=== PATIENT | male | born 1955 | race Caucasian/White ===

== ENCOUNTER 2020-07-02 16:59 | Inpatient (IN) ==
--- NOTE | 2020-07-02 20:31 | DR.SOBA ---
HPI Time Seen Time Seen by Provider: 07/02/20 18:30 Primary Care Physician Primary Care Physician: LILIBETH MONTEZ Complaints Chief Complaint:: PT TESTED POSITIVE COVID LAST THURSDAY , PT C/O LOW 02 SAT , AND < APPETITE , AND > CONGESTION PT IS NOT ON ANY ABX ..BR COVID-19 Coronavirus risk:travel/contact w/high risk person: No Has patient experienced Coronavirus symptoms: Yes Coronavirus symptoms experienced: Coughing and Shortness of Breath Source History Provided: Patient Mode of Arrival Mode of Arrival: Ambulatory Timing Onset of Chief Complaint: 06/27/20 PMH PMH Past Medical History: Yes Past Medical History: Diabetes, Dyslipidemia and Hypertension Past Surgical History: No Family History History of Family Medical Conditions: No Social History Does patient currently use any type of tobacco product: No Have you used tobacco products in the last 12 months: No Type of Tobacco Use: None Does any household member use tobacco: No Alcohol Use: None Do you use any recreational Drugs:: No Lives With: Family Lives Where: Home Travel Risk Coronavirus risk:travel/contact w/high risk person: No Has patient experienced Coronavirus symptoms: Yes Coronavirus symptoms experienced: Coughing and Shortness of Breath Infectious screening In the last 2 months have you had wt loss of >10#?: NO Have you had fever, night sweats or hemotysis?: No Have you traveled outside the country in the last 6 months?: No Isolation: Droplet ROS Review of Systems Constitutional: Chills, Diaphoresis, Malaise, Weakness, Fatigue and Loss of Appetite Eyes: No Symptoms Reported ENTM: No Symptoms Reported Respiratoy: Non-Productive Cough and Short of Breath Cardiovascular: No Symptoms Reported Gastrointestinal/Abdominal: No Symptoms Reported Genitourinary: No Symptoms Reported Neurological: No Symptoms Reported Musculoskeletal: Muscle Pain Integumentary: No Symptoms Reported Hematologic/Lymphatic: No Symptoms Reported Psychiatric: No Symptoms Reported All Other Systems: Reviewed and Negative PE Vital Signs Vitals: Temperature 97.2 F Pulse Rate 92 Respiratory Rate 20 Blood Pressure 170/79 O2 Sat by Pulse Oximetry 90 General Limitations: No Limitations General Appearance: Alert and In No Apparent Distress Head Head Exam: Normal Inspection, Atraumatic and Normocephalic Eyes Eye exam: Normal Appearance, PERRL and EOMI; negative Scleral Icterus, Conjunctival Injection and Nystagmus ENT ENT Exam: Normal Exam, Normal Oropharynx and Normal External Ear Exam Neck Neck Exam: Normal Inspection, Full ROM and Trachea Midline Chest Chest Inspection: Normal Inspection and Symmetric Chest Wall Rise; negative Tenderness Respiratory Respiratory Exam: Normal Lung Sounds Bilat; negative Accessory Muscle Use and Chest Wall Tenderness Respiratory Exam: Bilateral: Clear to Auscultation Cardiovascular Cardiovascular Exam: Regular Rate, Normal Rhythm and Normal Heart Sounds Abdominal Exam Abdominal Exam: Normal Inspection, Normal Bowel Sounds and Soft Extremities Extremities Exam: Normal Inspection and Full ROM; negative Tenderness Back Back Exam: Normal Inspection and Full ROM; negative Tenderness Neurologic Neurological Exam: Alert, Oriented X3 and Normal Gait Psychiatric Psychiatric Exam: Normal Affect ROR Labs Reviewed Result Diagrams: 07/02/20 20:38 07/02/20 20:38 Laboratory: WBC 3.5 X10^3/uL (3.6-10.0) L 07/02/20 20:38 RBC 3.93 X10^6/uL (4.7-6.0) L 07/02/20 20:38 Hgb 12.4 g/dL (13.5-18.0) L 07/02/20 20:38 Hct 36.7 % (42.0-54.0) L 07/02/20 20:38 MCV 93.4 fL (80.0-100.0) 07/02/20 20:38 MCH 31.7 pg (27.0-34.0) 07/02/20 20:38 MCHC 33.9 g/dL (33.0-35.0) 07/02/20 20:38 RDW 12.6 % (11.6-16.5) 07/02/20 20:38 Plt Count 220 X10^3/uL (150.0-450.0) 07/02/20 20:38 MPV 8.7 fL (7.4-11.0) 07/02/20 20:38 Neut % (Auto) 83.7 % (42.0-75.0) H 07/02/20 20:38 Lymph % (Auto) 7.7 % (21.0-51.0) L 07/02/20 20:38 [place] % (Auto) 8.3 % (0.0-13.0) 07/02/20 20:38 Eos % (Auto) 0.1 % (0.9-2.9) L 07/02/20 20:38 Baso % (Auto) 0.2 % (0.2-1.0) 07/02/20 20:38 Neut # (Auto) 2.9 x10^3/uL (2.2-4.8) 07/02/20 20:38 Lymph # (Auto) 0.3 X10^3/uL (1.3-2.9) L 07/02/20 20:38 [place] # (Auto) 0.3 x10^3/uL (0.3-0.8) 07/02/20 20:38 Eos # (Auto) 0.0 x10^3/uL (0.0-0.2) 07/02/20 20:38 Baso # (Auto) 0.0 X10^3/uL (0.0-0.1) 07/02/20 20:38 Absolute Nucleated RBC 0.0 /100WBC 07/02/20 20:38 PT 14.3 SECONDS (11.8-14.3) 07/02/20 20:38 INR Target Range - 07/02/20 20:38 INR 1.14 (0.8-1.3) 07/02/20 20:38 APTT 42.0 SECONDS (22.9-36.5) H 07/02/20 20:38 PTT Comment - 07/02/20 20:38 D-Dimer 1.50 ug/ml (0.0-0.57) H* 07/02/20 20:38 Sample Site Lr 07/02/20 20:49 ABG pH 7.510 (7.35-7.45) H 07/02/20 20:49 ABG pCO2 24.0 mmHg (35.0-45.0) L 07/02/20 20:49 ABG pO2 52.0 mmHg (80.0-100.0) L 07/02/20 20:49 ABG HCO3 19.2 mmol/L (22-26) L 07/02/20 20:49 ABG O2 Saturation 90.0 % (90-100) 07/02/20 20:49 ABG Base Excess -2.3 mmol/L (-2.0-2.0) L 07/02/20 20:49 Cipriano Test Pos 07/02/20 20:49 A-a Gradient 118.0 mmHg 07/02/20 20:49 FiO2 28.0 07/02/20 20:49 Blood Gas Comments Ez well ae 07/02/20 20:49 Sodium 141 mmol/L (136-145) 07/02/20 20:38 Corrected Sodium 141 mmol/L (136-145) 07/02/20 20:38 Potassium 3.9 mmol/L (3.5-5.1) 07/02/20 20:38 Chloride 104 mmol/L (98-107) 07/02/20 20:38 Carbon Dioxide 23.7 mmol/L (21-32) 07/02/20 20:38 BUN 19 mg/dL (7-18) H 07/02/20 20:38 Creatinine 1.11 mg/dL (0.70-1.30) 07/02/20 20:38 Est GFR (MDRD) Af Amer > 60 (>60) 07/02/20 20:38 Est GFR (MDRD) Non-Af > 60 (>60) 07/02/20 20:38 Glucose 119 mg/dL (65-99) H 07/02/20 20:38 Calcium 9.1 mg/dL (8.5-10.1) 07/02/20 20:38 Corrected Calcium 9.9 mg/dL (8.5-10.1) 07/02/20 20:38 Magnesium 1.7 mg/dL (1.7-2.9) 07/02/20 20:38 Ferritin 436 ng/mL (26-388) H 07/02/20 20:49 Total Bilirubin 0.50 mg/dL (0.2-1.0) 07/02/20 20:38 AST 48 Units/L (15-37) H 07/02/20 20:38 ALT 39 Units/L (12-78) 07/02/20 20:38 Alkaline Phosphatase 49 Units/L (46-116) 07/02/20 20:38 Creatine Kinase 47 Units/L (39-308) 07/02/20 20:38 CK-MB (CK-2) < 1.0 ng/mL (0-4.0) 07/02/20 20:38 CK/CKMB % Calc 2.1 % (<4) 07/02/20 20:38 Troponin I < 0.02 ng/mL (0-1.5) 07/02/20 20:38 C-Reactive Protein 183.50 mg/L (0-3.0) H 07/02/20 20:49 B-Natriuretic Peptide 162 pg/mL (0-79) H 07/02/20 20:38 Total Protein 7.6 g/dL (6.4-8.2) 07/02/20 20:38 Albumin 3.0 g/dL (3.4-5.0) L 07/02/20 20:38 Globulin 4.6 g/dL (2.5-4.5) H 07/02/20 20:38 Albumin/Globulin Ratio 0.7 Ratio (1.1-2.1) L 07/02/20 20:38 Opioid Opioid Risk Tool Age (Elijah box if 16-45): No History of Preadolescent Sexual Abuse: No Total: 0 Total Score Risk Category: Low Risk Copyright: Berhane DIAZ predicting aberrant behaviors Diagnosis Discharge Problem: Hypoxia, COVID-19 Community acquired pneumonia Qualifiers: Laterality: unspecified laterality Qualified Code(s): J18.9 - Pneumonia, unspecified organism
[2020-07-02 20:54] LABS: BASOPHILS % (AUTO) 0.2 % (0.2-1.0); EOSINOPHILS % (AUTO) 0.1 % (0.9-2.9); HEMATOCRIT 36.7 % (42.0-54.0); HEMOGLOBIN 12.4 g/dL (13.5-18.0); LYMPHOCYTES # (AUTO) 0.3 X10^3/uL (1.3-2.9); LYMPHOCYTES % (AUTO) 7.7 % (21.0-51.0); MEAN CORPUSCULAR HEMOGLOBIN 31.7 pg (27.0-34.0); MEAN CORPUSCULAR HGB CONC 33.9 g/dL (33.0-35.0); MEAN CORPUSCULAR VOLUME 93.4 fL (80.0-100.0); MEAN PLATELET VOLUME 8.7 fL (7.4-11.0); MONOCYTES # (AUTO) 0.3 x10^3/uL (0.3-0.8); MONOCYTES % (AUTO) 8.3 % (0.0-13.0); NEUTROPHILS # (AUTO) 2.9 x10^3/uL (2.2-4.8); NEUTROPHILS % (AUTO) 83.7 % (42.0-75.0); PLATELET COUNT 220 X10^3/uL (150.0-450.0); RED BLOOD COUNT 3.93 X10^6/uL (4.7-6.0); RED CELL DISTRIBUTION WIDTH 12.6 % (11.6-16.5); WHITE BLOOD COUNT 3.5 X10^3/uL (3.6-10.0)
[2020-07-02 20:54] LABS: ABG ALLEN TEST POS; ABG BASE EXCESS -2.3 mmol/L (-2.0-2.0); ABG HCO3 19.2 mmol/L (22-26)
[2020-07-02 21:09] LABS: BLOOD UREA NITROGEN 19 mg/dL (7-18); CALCIUM 9.1 mg/dL (8.5-10.1); CARBON DIOXIDE 23.7 mmol/L (21-32); CHLORIDE 104 mmol/L (98-107); COR NA(FOR HYPERGLY) 141 mmol/L (136-145); CREATININE 1.11 mg/dL (0.70-1.30); SODIUM 141 mmol/L (136-145); TROPONIN I < 0.02 ng/mL (0-1.5); eGFR NON BLACK RACES > 60 (>60)
[2020-07-02 21:13] LABS: ALANINE AMINOTRANSFERASE 39 Units/L (12-78); ALKALINE PHOSPHATASE 49 Units/L (46-116); ASPARTATE AMINO TRANSFERASE 48 Units/L (15-37); CKMB % 2.1 % (<4); COR CA(FOR HYPOALB) 9.9 mg/dL (8.5-10.1); CREATINE KINASE 47 Units/L (39-308); CREATINE KINASE MB < 1.0 ng/mL (0-4.0); MAGNESIUM 1.7 mg/dL (1.7-2.9); TOTAL PROTEIN 7.6 g/dL (6.4-8.2)
[2020-07-02] MEDS ORDERED: DECADRON INJ IVP STA (22:03)
[2020-07-02] MEDS ORDERED: ROCEPHIN 1 GRAM IV PREMIX 1 G/50 ML IV.SOLN. IV ONE (22:04)
[2020-07-02] MEDS ORDERED: ZITHROMAX INJ 500 MG VIAL 500 MG in NS 250 ML IV 250 ML IV SCH (22:04)
--- NOTE | 2020-07-02 22:28 | CT ---
HISTORYelevated d dimer, covid +STUDYCTA CHESTCOMPARISONNoneTECHNIQUEMultiple axial images of the chest were obtained from the thoracic inlet to the upper abdomen after the administration of IV contrast. 3D reconstructions utilizing axial MIPS imaging was performed and reviewed. Dose reduction techniques including Automated Exposure Control (AEC) and adjustment of mA and kV were utilized.FINDINGSPulmonary arteries: There is no central filling defects of the pulmonary arterial system to suggest acute pulmonary emboli.Mediastinum: Shotty mediastinal and hilar lymph nodes. Heart size is within normal limits. No paricardial effusion The thoracic aorta is normal in its contour without evidence for aneurysmal dilatation.Lungs: Patchy ground-glass opacity throughout the bilateral lung meza, without pleural effusion or pneumothorax. The central airway is grossly patent.Chest wall: No axillary adenopathy.Bones: No aggressive osseus lesion or acute fracture.Upper abdomen: The visualized portions of the upper abdomen are grossly unremarkable .IMPRESSIONNo evidence of acute pulmonary emboli.Patchy ground-glass opacities throughout the bilateral lung meza, most likely represent COVID-19 pneumonia given history.Electronically signed by: Tasha Negron (Jul 02, 2020 22:27:01)
[2020-07-02] MEDS ORDERED: DECADRON INJ ONE (22:56)
[2020-07-02] MEDS ORDERED: ROCEPHIN VIAL 1 GRAM ONE (22:57)
[2020-07-02] MEDS ORDERED: NS 50 ML IV + SPIKE MINIBAG* 50 ML IV ONE (22:57)
[2020-07-02] MEDS ORDERED: NS 1000 ML 1,000 ML ONE (23:02)
[2020-07-02] MEDS ORDERED: NS 250 ML IV 250 ML IV ONE (23:02)
[2020-07-02] MEDS ORDERED: ZITHROMAX INJ 500 MG VIAL IV ONE (23:02)
[2020-07-02] MEDS ORDERED: NS 1000 ML 1,000 ML IV SCH (23:45)
--- NOTE | 2020-07-03 07:37 | DR.SOBA ---
HPI Time Seen Time Seen by Provider: 07/02/20 18:30 Primary Care Physician Primary Care Physician: LILIBETH MONTEZ Complaints Chief Complaint:: PT TESTED POSITIVE COVID LAST THURSDAY , PT C/O LOW 02 SAT , AND < APPETITE , AND > CONGESTION PT IS NOT ON ANY ABX ..BR COVID-19 Coronavirus risk:travel/contact w/high risk person: No Has patient experienced Coronavirus symptoms: Yes Coronavirus symptoms experienced: Coughing and Shortness of Breath Source History Provided: Patient Mode of Arrival Mode of Arrival: Ambulatory Timing Onset of Chief Complaint: 06/27/20 PMH PMH Past Medical History: Yes Past Medical History: Diabetes, Dyslipidemia and Hypertension Past Surgical History: No Family History History of Family Medical Conditions: No Social History Does patient currently use any type of tobacco product: No Have you used tobacco products in the last 12 months: No Type of Tobacco Use: None Does any household member use tobacco: No Alcohol Use: None Do you use any recreational Drugs:: No Lives With: Family Lives Where: Home Travel Risk Coronavirus risk:travel/contact w/high risk person: No Has patient experienced Coronavirus symptoms: Yes Coronavirus symptoms experienced: Coughing and Shortness of Breath Infectious screening In the last 2 months have you had wt loss of >10#?: NO Have you had fever, night sweats or hemotysis?: No Have you traveled outside the country in the last 6 months?: No Isolation: Droplet PE Vital Signs Vitals: Temperature 100.1 F Pulse Rate [Left Brachial] 79 Pulse Rate 92 Respiratory Rate 24 Blood Pressure [Left Arm] 139/66 Blood Pressure 170/79 O2 Sat by Pulse Oximetry 90 ROR Labs Reviewed Result Diagrams: 07/02/20 20:38 07/02/20 20:38 Laboratory: WBC 3.5 X10^3/uL (3.6-10.0) L 07/02/20 20:38 RBC 3.93 X10^6/uL (4.7-6.0) L 07/02/20 20:38 Hgb 12.4 g/dL (13.5-18.0) L 07/02/20 20:38 Hct 36.7 % (42.0-54.0) L 07/02/20 20:38 MCV 93.4 fL (80.0-100.0) 07/02/20 20:38 MCH 31.7 pg (27.0-34.0) 07/02/20 20:38 MCHC 33.9 g/dL (33.0-35.0) 07/02/20 20:38 RDW 12.6 % (11.6-16.5) 07/02/20 20:38 Plt Count 220 X10^3/uL (150.0-450.0) 07/02/20 20:38 MPV 8.7 fL (7.4-11.0) 07/02/20 20:38 Neut % (Auto) 83.7 % (42.0-75.0) H 07/02/20 20:38 Lymph % (Auto) 7.7 % (21.0-51.0) L 07/02/20 20:38 [place] % (Auto) 8.3 % (0.0-13.0) 07/02/20 20:38 Eos % (Auto) 0.1 % (0.9-2.9) L 07/02/20 20:38 Baso % (Auto) 0.2 % (0.2-1.0) 07/02/20 20:38 Neut # (Auto) 2.9 x10^3/uL (2.2-4.8) 07/02/20 20:38 Lymph # (Auto) 0.3 X10^3/uL (1.3-2.9) L 07/02/20 20:38 [place] # (Auto) 0.3 x10^3/uL (0.3-0.8) 07/02/20 20:38 Eos # (Auto) 0.0 x10^3/uL (0.0-0.2) 07/02/20 20:38 Baso # (Auto) 0.0 X10^3/uL (0.0-0.1) 07/02/20 20:38 Absolute Nucleated RBC 0.0 /100WBC 07/02/20 20:38 PT 14.3 SECONDS (11.8-14.3) 07/02/20 20:38 INR Target Range - 07/02/20 20:38 INR 1.14 (0.8-1.3) 07/02/20 20:38 APTT 42.0 SECONDS (22.9-36.5) H 07/02/20 20:38 PTT Comment - 07/02/20 20:38 D-Dimer 1.50 ug/ml (0.0-0.57) H* 07/02/20 20:38 Sample Site Lr 07/02/20 20:49 ABG pH 7.510 (7.35-7.45) H 07/02/20 20:49 ABG pCO2 24.0 mmHg (35.0-45.0) L 07/02/20 20:49 ABG pO2 52.0 mmHg (80.0-100.0) L 07/02/20 20:49 ABG HCO3 19.2 mmol/L (22-26) L 07/02/20 20:49 ABG O2 Saturation 90.0 % (90-100) 07/02/20 20:49 ABG Base Excess -2.3 mmol/L (-2.0-2.0) L 07/02/20 20:49 Cipriano Test Pos 07/02/20 20:49 A-a Gradient 118.0 mmHg 07/02/20 20:49 FiO2 28.0 07/02/20 20:49 Blood Gas Comments Ez well ae 07/02/20 20:49 Sodium 141 mmol/L (136-145) 07/02/20 20:38 Corrected Sodium 141 mmol/L (136-145) 07/02/20 20:38 Potassium 3.9 mmol/L (3.5-5.1) 07/02/20 20:38 Chloride 104 mmol/L (98-107) 07/02/20 20:38 Carbon Dioxide 23.7 mmol/L (21-32) 07/02/20 20:38 BUN 19 mg/dL (7-18) H 07/02/20 20:38 Creatinine 1.11 mg/dL (0.70-1.30) 07/02/20 20:38 Est GFR (MDRD) Af Amer > 60 (>60) 07/02/20 20:38 Est GFR (MDRD) Non-Af > 60 (>60) 07/02/20 20:38 Glucose 119 mg/dL (65-99) H 07/02/20 20:38 Calcium 9.1 mg/dL (8.5-10.1) 07/02/20 20:38 Corrected Calcium 9.9 mg/dL (8.5-10.1) 07/02/20 20:38 Magnesium 1.7 mg/dL (1.7-2.9) 07/02/20 20:38 Ferritin 436 ng/mL (26-388) H 07/02/20 20:49 Total Bilirubin 0.50 mg/dL (0.2-1.0) 07/02/20 20:38 AST 48 Units/L (15-37) H 07/02/20 20:38 ALT 39 Units/L (12-78) 07/02/20 20:38 Alkaline Phosphatase 49 Units/L (46-116) 07/02/20 20:38 Creatine Kinase 47 Units/L (39-308) 07/02/20 20:38 CK-MB (CK-2) < 1.0 ng/mL (0-4.0) 07/02/20 20:38 CK/CKMB % Calc 2.1 % (<4) 07/02/20 20:38 Troponin I < 0.02 ng/mL (0-1.5) 07/02/20 20:38 C-Reactive Protein 183.50 mg/L (0-3.0) H 07/02/20 20:49 B-Natriuretic Peptide 162 pg/mL (0-79) H 07/02/20 20:38 Total Protein 7.6 g/dL (6.4-8.2) 07/02/20 20:38 Albumin 3.0 g/dL (3.4-5.0) L 07/02/20 20:38 Globulin 4.6 g/dL (2.5-4.5) H 07/02/20 20:38 Albumin/Globulin Ratio 0.7 Ratio (1.1-2.1) L 07/02/20 20:38 EKG Rate: 84 [place]: Normal Rhythm: NSR Block: None Hypertrophy: None ST: Normal Opioid Opioid Risk Tool Age (Elijah box if 16-45): No History of Preadolescent Sexual Abuse: No Total: 0 Total Score Risk Category: Low Risk Copyright: Berhane DIAZ predicting aberrant behaviors Diagnosis Discharge Problem: Hypoxia, COVID-19 Community acquired pneumonia Qualifiers: Laterality: unspecified laterality Qualified Code(s): J18.9 - Pneumonia, unspecified organism
[2020-07-03] MEDS ORDERED: TUSSIONEX PENNKINETIC SUSP PO PRN (09:37)
[2020-07-03] MEDS ORDERED: REMDESIVIR 200 MG in NS 250 ML IV 250 ML IV SCH (09:39)
[2020-07-03] MEDS ORDERED: PROTONIX TAB 40 MG PO ONE (10:11)
[2020-07-03] MEDS ORDERED: SOLU-Medrol 40 MG VIAL ONE ×2 (10:11→10:19)
[2020-07-03] MEDS ORDERED: TESSALON PERLES PO ONE (10:11)
[2020-07-03] MEDS ORDERED: PEPCID TAB 20 MG ONE (10:11)
[2020-07-03] MEDS ORDERED: ROBITUSSIN DM ONE (10:11)
[2020-07-03] MEDS ORDERED: LEVAQUIN PREMIX IV 500 MG 500 MG/100 ML BAG IV ONE (10:12)
[2020-07-03] MEDS: PEPCID TAB 20 MG PO SCH ×3 (10:15→20:33)
[2020-07-03] MEDS: SOLU-Medrol 40 MG VIAL IVP SCH ×4 (10:15→21:14)
[2020-07-03] MEDS: PROTONIX TAB 40 MG PO SCH ×2 (10:15→10:18)
[2020-07-03] MEDS: LEVAQUIN PREMIX IV 500 MG 500 MG/100 ML BAG IV SCH ×2 (10:15→10:17)
[2020-07-03] MEDS: TESSALON PERLES PO SCH ×4 (10:16→21:14)
[2020-07-03] MEDS: ROBITUSSIN DM PO SCH ×4 (10:16→21:13)
[2020-07-03] MEDS ORDERED: DUONEB 0.5 MG/3 MG (3 mL) NEB SCH (13:00)
[2020-07-03] MEDS: LOVENOX INJ 30 MG SYR SC SCH ×2 (13:32→21:13)
[2020-07-03] MEDS: NS 1/2 1000 ML IV 1,000 ML IV SCH (13:33)
[2020-07-03] MEDS ORDERED: NS 1/2 1000 ML IV 1,000 ML IV ONE (13:34)
[2020-07-03] MEDS: DUONEB 0.5 MG/3 MG (3 mL) NEB SCH ×2 (16:05→20:15)
[2020-07-03] MEDS ORDERED: PULMICORT NEB TX 0.5 MG NEB ONE (19:34)
[2020-07-03] MEDS ORDERED: SUBOXONE TAB SL ONE (20:03)
[2020-07-03] MEDS: PULMICORT NEB TX 0.5 MG NEB SCH (20:15)
[2020-07-03] MEDS: SUBOXONE TAB SL SCH (21:14)
--- NOTE | 2020-07-03 22:57 | DR.H&P ---
H&P - History & Physical for Day of: H&P Date: 07/03/20 - Chief Complaint Chief Complaint: COUGH, SOB, FEVER, WEAKNESS, DECREASED APPETITE, COVID POSITIVE - History of Present Illness History of Present Illness: IS A 65 YEAR OLD PATIENT OF OURS. HE PRESENTED TO THE ER WITH COMPLAINTS OF A NON-PRODUCTIVE COUGH, SHORTNESS OF BREATH, DECREASED APPETITE, CONGESTION, AND GENERALIZED WEAKNESS. SYMPTOMS STARTED ABOUT A WEEK AGO AND HAVE PROGRESSIVELY GOTTEN WORSE. HE TESTED POSITIVE FOR COVID 19 ON 04/27/20. HE HAS NOT TAKEN ANY MEDICATIONS. HE REPORTS THAT HIS OXYGEN SATURATIONS TODAY HAVE BEEN IN THE 80s. HIS PMH INCLUDES: HYPERLIPIDEMIA, HTN, DIABETES MELLITUS TYPE II, AND HERNIA REPAIR. AUSCULTATION OF LUNG [place] REVEALED SCATTERED WHEEZING THROUGHOUT. ON ARRIVAL TO THE ER, VITALS WERE 97.2-92-20-90%RA-170/79. LABS WERE OBTAINED. ABNORMAL LAB VALUES INCLUDE THE FOLLOWING: WBC 3.5, RBC 3.93, HGB 12.4, HCT 36.7, D-DIMER 1.50, BUN 19, GLUCOSE 119, FERRITIN 436, AST 48, BNP 162, CRP 183.50, BNP 162, ALBUMIN 3.0, GLOBULIN 4.6. AN ABG WAS OBTAINED AND REVEALED: PH 7.510, PC02 24.0, P02 52, HC03 19.2, 02 SAT 90, BASE EXCESS -2.3, FI02 28.0. BLOOD CULTURES WERE SET UP. A CHEST CTA WAS OBTAINED AND REVEALED: No evidence of acute pulmonary emboli. Patchy ground- glass opacities throughout the bilateral lung [place], most likely represent COVID-19 pneumonia given history. EKG REVEALED SINUS RHYTHM WITH HR 64. IN THE ER, HE WAS GIVEN DECADRON 8MG IV X 1, ROCEPHIN 1G IV DAILY, NORMAL SALINE AT 125 ML/HR, AND REMDESIVIR 200MG IV X 1. HE WAS PLACED ON A VENTI-MASK. OXYGEN SATURATIONS REMAINED 88-90%. HE WAS THEN PLACED ON A NON-REBREATHER. SATUS INCREASED TO 94%. HE WAS ADMITTED TO THE HOSPITAL FOR FURTHER EVALUATION AND TREATMENT OF PNEUMONIA DUE TO COVID-19 AND HYPOXIA. HE WAS STARTED ON 1/2NS AT 75 ML/HR, REMDESIVIR 100MG IV DAILY, LEVAQUIN 500MG IV DAILY, LOVENOX 30MG SC BID, DUONEBS TID, PULMICORT NEBS BID, ROBITUSSIN DM 10 ML PO QID, SOLU-MEDROL 80MG IV Q8H, PEPCID 20MG PO BID, PROTONIX 40MG PO DAILY, AND HIS HOME MEDICATIONS WERE RESUMED. WE WILL OBTAIN AN ECHO. OTHERWISE, WE PLAN TO FOLLOW UP WITH AM LABS, CHEST XRAY, ABG, AND CONTINUE TO MONITOR. TIME SPENT ON CLINICAL ASSESSMENT, REVIEWING LABS AND IMAGING, DECISION MAKING, AND DOCUMENTATION GREATER THAN 75 MINUTES. - Past Medical History Past Medical History: Hypertension, Dyslipidemia, Diabetes - Past Surgical History Additional Surgical History: HERNIA REPAIR - Social History Does patient currently use any type of tobacco product: No Have you used tobacco products in the last 12 months: No Type of Tobacco Use: None Does any household member use tobacco: No Alcohol Use: None Drug Use: None - Medications Home Medications: No Known Drug Allergies Allergy (Verified 07/02/20 17:24) CONTINUE taking the following medications benazepril 40 mg PO DAILY 07/03/20 [History] carvedilol 6.25 mg PO DAILY 07/03/20 [History] fenofibrate micronized 134 mg PO DAILY 07/03/20 [History] lisdexamfetamine [Vyvanse] 30 mg PO DAILY 07/03/20 [History] simvastatin 40 mg PO DAILY 07/03/20 [History] sitagliptin-metformin [Janumet XR] 1 tab PO DAILY 07/03/20 [History] New Prescriptions buprenorphine-naloxone [Suboxone] 1 film SUBLINGUAL TID 30 Days #90 ea MDD 3 07/03/20 [Rx] - Review of Systems Constitutional: Fever, Weakness Eyes: No Symptoms Reported ENT: No Symptoms Reported Respiratory: Cough, Shortness of Breath, SOB with Excertion, Wheezing Cardiovascular: No Symptoms Reported Gastrointestinal: No Symptoms Reported Genitourinary: No Symptoms Reported Musculoskeletal: No Symptoms Reported Skin: No Symptoms Reported Neurological: Weakness - Physical Exam Vital Signs: Temperature 99.3 F Pulse Rate [Left Brachial] 69 Pulse Rate 66 Respiratory Rate 26 Blood Pressure [Left Arm] 149/70 Blood Pressure 142/68 O2 Sat by Pulse Oximetry 92 Oriented: Normal Eyes: Normal Ear: Normal Nose: Normal Throat: Normal Respiratory: Wheezes Throughout Cardiovascular: Normal : Normal Auscultation: Bowel Sounds: Normal Palpation: Normal Tenderness: Normal Skin: Normal Musculoskeletal: Normal Psychiatric: Normal Mood Description: Calm Affect: Normal Speech Pattern: Clear - Assessment/Plan (1) Pneumonia due to COVID-19 virus Status: Acute Plan: ADMIT, 1/2NS AT 75 ML/HR, REMDESIVIR 100MG IV DAILY, LEVAQUIN 500MG IV DAILY, LOVENOX 30MG SC BID, DUONEBS TID, PULMICORT NEBS BID, ROBITUSSIN DM 10 ML PO QID, SOLU-MEDROL 80MG IV Q8H, PEPCID 20MG PO BID, PROTONIX 40MG PO DAILY, AND HIS HOME MEDICATIONS WERE RESUMED. (2) Hypoxia Status: Acute - Allergies Allergies/Adverse Reactions: Allergies Allergy/AdvReac Type Severity Reaction Status Date / Time No Known Drug Allergies Allergy Verified 07/02/20 17:24
[2020-07-04] MEDS: NS 1/2 1000 ML IV 1,000 ML IV SCH ×4 (03:11→20:46)
[2020-07-04] MEDS ORDERED: NS 1/2 1000 ML IV 1,000 ML IV ONE ×2 (03:22→20:37)
[2020-07-04 04:58] LABS: ABG ALLEN TEST POS; ABG BASE EXCESS 0.8 mmol/L (-2.0-2.0); ABG HCO3 24.2 mmol/L (22-26)
[2020-07-04] MEDS: DUONEB 0.5 MG/3 MG (3 mL) NEB SCH ×3 (05:01→21:20)
[2020-07-04] MEDS: SUBOXONE TAB SL SCH ×3 (05:34→22:30)
[2020-07-04] MEDS: TESSALON PERLES PO SCH ×3 (05:34→21:30)
[2020-07-04] MEDS: SOLU-Medrol 40 MG VIAL IVP SCH ×3 (05:34→21:30)
[2020-07-04 05:45] LABS: BASOPHILS % (AUTO) 0 % (0.2-1.0); HEMATOCRIT 34.2 % (42.0-54.0); HEMOGLOBIN 11.6 g/dL (13.5-18.0); LYMPHOCYTES # (AUTO) 0.5 X10^3/uL (1.3-2.9); LYMPHOCYTES % (AUTO) 9.5 % (21.0-51.0); MEAN CORPUSCULAR HEMOGLOBIN 31.6 pg (27.0-34.0); MEAN CORPUSCULAR VOLUME 92.9 fL (80.0-100.0); MEAN PLATELET VOLUME 8.8 fL (7.4-11.0); MONOCYTES # (AUTO) 0.4 x10^3/uL (0.3-0.8); MONOCYTES % (AUTO) 7.7 % (0.0-13.0); NEUTROPHILS % (AUTO) 82.8 % (42.0-75.0); PLATELET COUNT 204 X10^3/uL (150.0-450.0); RED BLOOD COUNT 3.68 X10^6/uL (4.7-6.0); RED CELL DISTRIBUTION WIDTH 12.7 % (11.6-16.5); WHITE BLOOD COUNT 4.8 X10^3/uL (3.6-10.0)
[2020-07-04 05:53] LABS: ALANINE AMINOTRANSFERASE 91 Units/L (12-78); ALBUMIN 2.4 g/dL (3.4-5.0); ALKALINE PHOSPHATASE 54 Units/L (46-116); ASPARTATE AMINO TRANSFERASE 115 Units/L (15-37); BLOOD UREA NITROGEN 19 mg/dL (7-18); CALCIUM 8.6 mg/dL (8.5-10.1); CARBON DIOXIDE 24.3 mmol/L (21-32); CHLORIDE 103 mmol/L (98-107); COR CA(FOR HYPOALB) 9.9 mg/dL (8.5-10.1); COR NA(FOR HYPERGLY) 140 mmol/L (136-145); CREATININE 0.85 mg/dL (0.70-1.30); SODIUM 138 mmol/L (136-145); TOTAL PROTEIN 6.7 g/dL (6.4-8.2); eGFR NON BLACK RACES > 60 (>60)
--- NOTE | 2020-07-04 07:31 | RAD ---
HISTORYFollow-up COVID-19, shortness of breathSTUDYChest AP [id number] is upper limits normal in size. Lungs are hypoinflated diff use bilateral perihilar interstitial and ground-glass infiltrates are again identified not significan tly different when considering a difference in film technique. No pleural effusions are identified. B anjali thorax is unremarkable.IMPRESSIONNo change diffuse bilateral interstitial, ground-glass, and alve olar infiltratesContinued hypo inflationElectronically signed by: SHERI BUSTILLOS (Jul 04, 2020 07:30:1 9)
[2020-07-04] MEDS: PULMICORT NEB TX 0.5 MG NEB SCH ×2 (08:22→21:20)
[2020-07-04] MEDS ORDERED: GLUCOPHAGE ONE ×2 (08:30→17:31)
[2020-07-04] MEDS: GLUCOPHAGE PO SCH ×2 (08:51→17:44)
[2020-07-04] MEDS: COREG TAB 6.25 MG PO SCH (08:51)
[2020-07-04] MEDS: PEPCID TAB 20 MG PO SCH ×2 (08:52→20:31)
[2020-07-04] MEDS: JANUVIA PO SCH (08:52)
[2020-07-04] MEDS: LEVAQUIN PREMIX IV 500 MG 500 MG/100 ML BAG IV SCH (08:52)
[2020-07-04] MEDS: LOVENOX INJ 30 MG SYR SC SCH ×2 (08:53→20:29)
[2020-07-04] MEDS: ZOCOR TAB 40 MG PO SCH (08:53)
[2020-07-04] MEDS: ROBITUSSIN DM PO SCH ×4 (08:53→20:32)
[2020-07-04] MEDS: PROTONIX TAB 40 MG PO SCH (08:54)
[2020-07-04] MEDS: REMDESIVIR 100 MG in NS 250 ML IV 250 ML IV SCH (08:54)
[2020-07-04] MEDS: TRICOR TAB 145 MG PO SCH (08:54)
[2020-07-04] MEDS ORDERED: LISDEXAMFETAMINE 30 MG PO SCH (09:00)
[2020-07-04] MEDS: LOTENSIN TAB 10 MG PO SCH (10:16)
--- NOTE | 2020-07-04 10:55 | RAD ---
HISTORYPT TESTED POSITIVE COVID LAST THURSDAY, PT C/O LOW 02 SAT, AND < APPETITE, AND > CONGESTION PT IS NOT ON ANY ABX. PTS DAUGHTER CALLED [facility] AT [facility] AND [id number] AP chest radiograph 1 imageFINDINGSNo cardiomegaly.Diffuse airspace disease in the right upper lobe, mid left lung and the right infrahilar region.Mild elevation of the right diaphragm.No definite pleural effusion.No pneumothorax.No acute osseous abnormality.IMPRESSIONBilateral airspace opacities, as described above, are consistent with multifocal pneumonia and could represent the sequela of COVID-19; given the patient's clinical history.Electronically signed by: Akbar Ascencio (Jul 02, 2020 21:11:18)
[2020-07-04] MEDS ORDERED: AFRIN NASAL SPRAY PRN (11:55)
[2020-07-04 16:59] LABS: CKMB % 2.1 % (<4); CREATINE KINASE 47 Units/L (39-308); CREATINE KINASE MB < 1.0 ng/mL (0-4.0); TROPONIN I < 0.02 ng/mL (0-1.5)
[2020-07-04] MEDS: LOMOTIL PO PRN ×2 (17:45→23:49)
[2020-07-04 20:38] LABS: CKMB % 2.2 % (<4); CREATINE KINASE 46 Units/L (39-308); CREATINE KINASE MB < 1.0 ng/mL (0-4.0); TROPONIN I < 0.02 ng/mL (0-1.5)
[2020-07-05 00:02] LABS: CKMB % 2.2 % (<4); CREATINE KINASE 46 Units/L (39-308); CREATINE KINASE MB < 1.0 ng/mL (0-4.0); TROPONIN I < 0.02 ng/mL (0-1.5)
[2020-07-05 04:26] LABS: ABG BASE EXCESS 2.9 mmol/L (-2.0-2.0); ABG HCO3 24.8 mmol/L (22-26)
[2020-07-05 04:27] LABS: ABG ALLEN TEST POS
[2020-07-05] MEDS: NS 1/2 1000 ML IV 1,000 ML IV SCH ×3 (05:14→21:00)
[2020-07-05] MEDS ORDERED: GLUCOPHAGE ONE ×2 (05:18→17:32)
[2020-07-05] MEDS: SUBOXONE TAB SL SCH ×3 (05:28→21:00)
[2020-07-05] MEDS: SOLU-Medrol 40 MG VIAL IVP SCH ×3 (05:28→21:00)
[2020-07-05 05:38] LABS: BASOPHILS % (AUTO) 0.1 % (0.2-1.0); HEMATOCRIT 35.3 % (42.0-54.0); HEMOGLOBIN 12.3 g/dL (13.5-18.0); LYMPHOCYTES # (AUTO) 0.5 X10^3/uL (1.3-2.9); LYMPHOCYTES % (AUTO) 4.5 % (21.0-51.0); MEAN CORPUSCULAR HEMOGLOBIN 32.5 pg (27.0-34.0); MEAN CORPUSCULAR VOLUME 92.9 fL (80.0-100.0); MEAN PLATELET VOLUME 9.1 fL (7.4-11.0); MONOCYTES # (AUTO) 0.6 x10^3/uL (0.3-0.8); MONOCYTES % (AUTO) 5.9 % (0.0-13.0); NEUTROPHILS # (AUTO) 9.6 x10^3/uL (2.2-4.8); NEUTROPHILS % (AUTO) 89.5 % (42.0-75.0); PLATELET COUNT 243 X10^3/uL (150.0-450.0); RED CELL DISTRIBUTION WIDTH 12.8 % (11.6-16.5); WHITE BLOOD COUNT 10.7 X10^3/uL (3.6-10.0)
[2020-07-05 05:49] LABS: ALANINE AMINOTRANSFERASE 120 Units/L (12-78); ALBUMIN 2.4 g/dL (3.4-5.0); ALKALINE PHOSPHATASE 65 Units/L (46-116); ASPARTATE AMINO TRANSFERASE 117 Units/L (15-37); BLOOD UREA NITROGEN 22 mg/dL (7-18); CALCIUM 8.8 mg/dL (8.5-10.1); CARBON DIOXIDE 25.7 mmol/L (21-32); CHLORIDE 103 mmol/L (98-107); COR CA(FOR HYPOALB) 10.1 mg/dL (8.5-10.1); COR NA(FOR HYPERGLY) 140 mmol/L (136-145); CREATININE 0.86 mg/dL (0.70-1.30); SODIUM 138 mmol/L (136-145); TOTAL PROTEIN 6.7 g/dL (6.4-8.2); eGFR NON BLACK RACES > 60 (>60)
[2020-07-05] MEDS: TESSALON PERLES PO SCH ×3 (05:58→21:00)
[2020-07-05] MEDS: GLUCOPHAGE PO SCH ×2 (05:59→17:51)
[2020-07-05] MEDS: DUONEB 0.5 MG/3 MG (3 mL) NEB SCH ×3 (06:50→21:05)
--- NOTE | 2020-07-05 06:51 | RAD ---
HISTORYShortness of breathSTUDYChest AP [id number] heart is upper limits normal in size. The lungs are hypoinflated. Diffuse bilateral interstitial patchy and confluent ground-glass infiltrates are again identified and are unchanged in degree or distribution when compared to the prior examination. No pleural effusions are identified. Bony thorax is unremarkable.IMPRESSIONNo significant change from the prior examinationElectronically signed by: SHERI BUSTILLOS (Jul 05, 2020 06:49:51)
[2020-07-05] MEDS: AYR NASAL DROPS PRN ×2 (07:57→14:00)
[2020-07-05] MEDS: TRICOR TAB 145 MG PO SCH (08:45)
[2020-07-05] MEDS: LOTENSIN TAB 10 MG PO SCH (08:45)
[2020-07-05] MEDS: PROTONIX TAB 40 MG PO SCH (08:45)
[2020-07-05] MEDS: ZOCOR TAB 40 MG PO SCH (08:45)
[2020-07-05] MEDS: JANUVIA PO SCH (08:45)
[2020-07-05] MEDS: PEPCID TAB 20 MG PO SCH ×2 (08:45→21:00)
[2020-07-05] MEDS: ROBITUSSIN DM PO SCH ×4 (08:45→21:00)
[2020-07-05] MEDS: LEVAQUIN PREMIX IV 500 MG 500 MG/100 ML BAG IV SCH (08:45)
[2020-07-05] MEDS: PULMICORT NEB TX 0.5 MG NEB SCH ×2 (09:02→21:05)
--- NOTE | 2020-07-05 10:20 | PCM.PROG ---
Progress Note - Progress Note for Day of Date of Exam: 07/04/20 - Subjective Subjective: IS BEING TREATED FOR PNEUMONIA DUE TO COVID-19 AND HYPOXIA. TODAY, HE IS ALERT AND ORIENTED, LYING IN BED ON MORNING ROUNDS. HE CONTINUES WITH COMPLAINTS OF COUGH, SHORTNESS OF BREATH, AND GENERALIZED WEAKNESS. HE IS CURRENTLY UTILIZING OXYGEN VIA NON-REBREATHER. HIS OXYGEN SATUR ATIONS HAVE BEEN 87-92% ON THE NON-REBREATHER. HE DENIES SIGNIFICANT IMPROVEMENT IN SYMPTOMS SINCE ADMISSION. HE REPORTS FEELING MORE SHORT OF BREATH TODAY. ON EXAMINATION, HEART IS REGULAR IN RATE AND RHYTHM. BILATERAL LUNGS ARE NOTED WITH SCATTERED WHEEZING THROUGHOUT. ABDOMEN IS ROUND, SOFT, AND NON-TENDER WITH NORMAL BOWEL SOUNDS NOTED IN ALL QUADRANTS. HIS VITALS THIS MORNING ARE: 97.9-92-28-92%NRB-130/76. LABS WERE OBTAINED. ABNORMAL LAB VALUES INCLUDE THE FOLLOWING: RBC 3.68, HGB 11.6, HCT 34.2, BUN 19, GLUCOSE 181, FERRITIN 625, AST 115, ALT 91, CRP 118.10, ALBUMIN 2.4. AN ABG WAS REPEATED TODAY AND REVEALED: PH 7.540, PC02 29, P02 64, 02 SAT 95, FI02 100.0. BLOOD CULTURES ARE PENDING. CHEST XRAY REVEALED: 1/2NS AT 75 ML/HR, REMDESIVIR 100MG IV DAILY, LEVAQUIN 500MG IV DAILY, LOVENOX 30MG SC BID, DUONEBS TID, PULMICORT NEBS BID, ROBITUSSIN DM 10 ML PO QID, SOLU-MEDROL 80MG IV Q8H, PEPCID 20MG PO BID, PROTONIX 40MG PO DAILY, AND HIS HOME MEDICATIONS WERE RESUMED. HE HAS RECEIVED ONE UNIT OF CONVALESCENT PLASMA SINCE ADMISSION. WE WILL PLACE HIM ON HEATED HIGH FLOW OXYGEN THIS MORNING. OTHERWISE, WE WILL CONTINUE WITH CURRENT PLAN OF CARE TODAY. WE WILL FOLLOW UP WITH AM LABS AND CONTINUE TO MONITOR. TIME SPENT ON CLINICAL ASSESSMENT, REVIEWING LABS AND IMAGING, DECISION MAKING, AND DOCUMENTATION GREATER THAN 45 MINUTES. - Past Medical Family Social History Past Med/Fam/Surg Hx: No changes since H&P Allergies: Allergies No Known Drug Allergies Allergy (Verified 07/02/20 17:24) - Review of Systems ROS: No change since H&P - Vital Signs and I&O's Vital Signs: Temperature 98.7 F Pulse Rate [Left Brachial] 80 Pulse Rate 88 Respiratory Rate 26 Blood Pressure [Left Arm] 131/63 Blood Pressure 129/69 O2 Sat by Pulse Oximetry 92 Intake and Output: Intake & Output 07/02/20 07/03/20 07/04/20 07/05/20 11:59 11:59 11:59 11:59 Intake Total 4362 / 4362 3083 / 3083 Output Total 2125 / 2125 650 / 650 Balance 2237 / 2237 2433 / 2433 - Physical Exam Oriented: Normal Eyes: Normal Ear: Normal Nose: Normal Throat: Normal Respiratory: Generalized, Diminished, Wheezes Cardiovascular: Normal : Normal Auscultation: Bowel Sounds: Normal Palpation: Normal Tenderness: Normal Skin: Normal Musculoskeletal: Normal Psychiatric: Normal Mood Description: Calm Affect: Normal Speech Pattern: Clear, Appropriate - Laboratory and Diagnostics Result Diagrams: 07/05/20 04:11 07/05/20 04:11 Labs: 07/02/20 22:22 Blood Blood Culture - Preliminary 07/02/20 20:38 Blood Blood Culture - Preliminary Laboratory WBC 10.7 X10^3/uL (3.6-10.0) H 07/05/20 04:11 RBC 3.80 X10^6/uL (4.7-6.0) L 07/05/20 04:11 Hgb 12.3 g/dL (13.5-18.0) L 07/05/20 04:11 Hct 35.3 % (42.0-54.0) L 07/05/20 04:11 MCV 92.9 fL (80.0-100.0) 07/05/20 04:11 MCH 32.5 pg (27.0-34.0) 07/05/20 04:11 MCHC 35.0 g/dL (33.0-35.0) 07/05/20 04:11 RDW 12.8 % (11.6-16.5) 07/05/20 04:11 Plt Count 243 X10^3/uL (150.0-450.0) 07/05/20 04:11 MPV 9.1 fL (7.4-11.0) 07/05/20 04:11 Neut % (Auto) 89.5 % (42.0-75.0) H 07/05/20 04:11 Lymph % (Auto) 4.5 % (21.0-51.0) L 07/05/20 04:11 [place] % (Auto) 5.9 % (0.0-13.0) 07/05/20 04:11 Eos % (Auto) 0.0 % (0.9-2.9) L 07/05/20 04:11 Baso % (Auto) 0.1 % (0.2-1.0) L 07/05/20 04:11 Neut # (Auto) 9.6 x10^3/uL (2.2-4.8) H 07/05/20 04:11 Lymph # (Auto) 0.5 X10^3/uL (1.3-2.9) L 07/05/20 04:11 [place] # (Auto) 0.6 x10^3/uL (0.3-0.8) 07/05/20 04:11 Eos # (Auto) 0.0 x10^3/uL (0.0-0.2) 07/05/20 04:11 Baso # (Auto) 0.0 X10^3/uL (0.0-0.1) 07/05/20 04:11 Absolute Nucleated RBC 0.0 /100WBC 07/05/20 04:11 PT 14.3 SECONDS (11.8-14.3) 07/02/20 20:38 INR Target Range - 07/02/20 20:38 INR 1.14 (0.8-1.3) 07/02/20 20:38 APTT 42.0 SECONDS (22.9-36.5) H 07/02/20 20:38 PTT Comment - 07/02/20 20:38 D-Dimer 1.50 ug/ml (0.0-0.57) H* 07/02/20 20:38 Sample Site Lrad 07/05/20 04:22 ABG pH 7.540 (7.35-7.45) H 07/05/20 04:22 ABG pCO2 29.0 mmHg (35.0-45.0) L 07/05/20 04:22 ABG pO2 64.0 mmHg (80.0-100.0) L 07/05/20 04:22 ABG HCO3 24.8 mmol/L (22-26) 07/05/20 04:22 ABG O2 Saturation 95.0 % (90-100) 07/05/20 04:22 ABG Base Excess 2.9 mmol/L (-2.0-2.0) H 07/05/20 04:22 Cipriano Test Pos 07/05/20 04:22 A-a Gradient 613.0 mmHg 07/05/20 04:22 FiO2 100.0 07/05/20 04:22 Blood Gas Comments Ez abg well-mtf 07/05/20 04:22 Sodium 138 mmol/L (136-145) 07/05/20 04:11 Corrected Sodium 140 mmol/L (136-145) 07/05/20 04:11 Potassium 4.2 mmol/L (3.5-5.1) 07/05/20 04:11 Chloride 103 mmol/L (98-107) 07/05/20 04:11 Carbon Dioxide 25.7 mmol/L (21-32) 07/05/20 04:11 BUN 22 mg/dL (7-18) H 07/05/20 04:11 Creatinine 0.86 mg/dL (0.70-1.30) 07/05/20 04:11 Est GFR (MDRD) Af Amer > 60 (>60) 07/05/20 04:11 Est GFR (MDRD) Non-Af > 60 (>60) 07/05/20 04:11 Glucose 181 mg/dL (65-99) H 07/05/20 04:11 POC Glucose (mg/dL) 177 mg/dL (65-99) H 07/04/20 20:36 Calcium 8.8 mg/dL (8.5-10.1) 07/05/20 04:11 Corrected Calcium 10.1 mg/dL (8.5-10.1) 07/05/20 04:11 Magnesium 1.7 mg/dL (1.7-2.9) 07/02/20 20:38 Ferritin 645 ng/mL (26-388) H 07/05/20 04:11 Total Bilirubin 0.40 mg/dL (0.2-1.0) 07/05/20 04:11 AST 117 Units/L (15-37) H 07/05/20 04:11 ALT 120 Units/L (12-78) H 07/05/20 04:11 Alkaline Phosphatase 65 Units/L (46-116) 07/05/20 04:11 Creatine Kinase 46 Units/L (39-308) 07/04/20 23:33 CK-MB (CK-2) < 1.0 ng/mL (0-4.0) 07/04/20 23:33 CK/CKMB % Calc 2.2 % (<4) 07/04/20 23:33 Troponin I < 0.02 ng/mL (0-1.5) 07/04/20 23:33 C-Reactive Protein 79.40 mg/L (0-3.0) H 07/05/20 04:11 B-Natriuretic Peptide 162 pg/mL (0-79) H 07/02/20 20:38 Total Protein 6.7 g/dL (6.4-8.2) 07/05/20 04:11 Albumin 2.4 g/dL (3.4-5.0) L 07/05/20 04:11 Globulin 4.3 g/dL (2.5-4.5) 07/05/20 04:11 Albumin/Globulin Ratio 0.6 Ratio (1.1-2.1) L 07/05/20 04:11 Blood Type A POSITIVE 07/03/20 10:01 - Plan (1) Pneumonia due to COVID-19 virus Status: Acute Plan: ADMIT, 1/2NS AT 75 ML/HR, REMDESIVIR 100MG IV DAILY, LEVAQUIN 500MG IV DAILY, LOVENOX 30MG SC BID, DUONEBS TID, PULMICORT NEBS BID, ROBITUSSIN DM 10 ML PO QID, SOLU-MEDROL 80MG IV Q8H, PEPCID 20MG PO BID, PROTONIX 40MG PO DAILY, AND HIS HOME MEDICATIONS WERE RESUMED. (2) Hypoxia Status: Acute (3) HTN (hypertension) Status: Chronic Qualifiers: Hypertension type: essential hypertension Qualified Code(s): I10 - Essential (primary) hypertension (4) Hyperlipidemia Status: Chronic Qualifiers: Hyperlipidemia type: mixed hyperlipidemia Qualified Code(s): E78.2 - Mixed hyperlipidemia (5) Diabetes mellitus Status: Chronic Qualifiers: Diabetes mellitus type: type 2 Diabetes mellitus complication status: without complication
[2020-07-05] MEDS: COREG TAB 6.25 MG PO SCH (10:29)
[2020-07-05] MEDS: ATIVAN TAB 0.5 MG PO SCH ×2 (10:29→20:31)
[2020-07-05] MEDS: LOVENOX INJ 30 MG SYR SC SCH ×2 (10:35→21:00)
[2020-07-05] MEDS: REMDESIVIR 100 MG in NS 250 ML IV 250 ML IV SCH (11:35)
[2020-07-05] MEDS ORDERED: NS 1/2 1000 ML IV 1,000 ML IV ONE ×2 (12:51→20:45)
[2020-07-06 04:53] LABS: ABG BASE EXCESS 1.5 mmol/L (-2.0-2.0); ABG HCO3 24.6 mmol/L (22-26)
[2020-07-06 04:54] LABS: ABG ALLEN TEST POS
[2020-07-06] MEDS ORDERED: GLUCOPHAGE ONE ×2 (05:04→16:29)
[2020-07-06] MEDS: SUBOXONE TAB SL SCH ×3 (05:42→21:30)
[2020-07-06] MEDS: SOLU-Medrol 40 MG VIAL IVP SCH ×3 (05:42→21:30)
[2020-07-06] MEDS: TESSALON PERLES PO SCH ×3 (05:42→21:30)
[2020-07-06] MEDS: DUONEB 0.5 MG/3 MG (3 mL) NEB SCH ×3 (06:14→21:32)
[2020-07-06 06:19] LABS: BASOPHILS % (AUTO) 0 % (0.2-1.0); HEMATOCRIT 35.1 % (42.0-54.0); HEMOGLOBIN 12.1 g/dL (13.5-18.0); LYMPHOCYTES # (AUTO) 0.4 X10^3/uL (1.3-2.9); LYMPHOCYTES % (AUTO) 3.1 % (21.0-51.0); MEAN CORPUSCULAR HEMOGLOBIN 31.8 pg (27.0-34.0); MEAN CORPUSCULAR HGB CONC 34.6 g/dL (33.0-35.0); MEAN CORPUSCULAR VOLUME 91.9 fL (80.0-100.0); MEAN PLATELET VOLUME 9.3 fL (7.4-11.0); MONOCYTES # (AUTO) 0.6 x10^3/uL (0.3-0.8); MONOCYTES % (AUTO) 4.9 % (0.0-13.0); PLATELET COUNT 245 X10^3/uL (150.0-450.0); RED BLOOD COUNT 3.82 X10^6/uL (4.7-6.0); RED CELL DISTRIBUTION WIDTH 12.7 % (11.6-16.5); WHITE BLOOD COUNT 13.1 X10^3/uL (3.6-10.0)
[2020-07-06] MEDS: GLUCOPHAGE PO SCH ×2 (06:24→17:19)
[2020-07-06 06:26] LABS: ALANINE AMINOTRANSFERASE 110 Units/L (12-78); ALBUMIN 2.4 g/dL (3.4-5.0); ALKALINE PHOSPHATASE 72 Units/L (46-116); ASPARTATE AMINO TRANSFERASE 78 Units/L (15-37); BLOOD UREA NITROGEN 21 mg/dL (7-18); CALCIUM 8.8 mg/dL (8.5-10.1); CARBON DIOXIDE 24.2 mmol/L (21-32); CHLORIDE 102 mmol/L (98-107); COR CA(FOR HYPOALB) 10.1 mg/dL (8.5-10.1); COR NA(FOR HYPERGLY) 140 mmol/L (136-145); CREATININE 0.78 mg/dL (0.70-1.30); SODIUM 138 mmol/L (136-145); TOTAL PROTEIN 6.6 g/dL (6.4-8.2); eGFR NON BLACK RACES > 60 (>60)
[2020-07-06 07:11] LABS: BAND NEUTROPHILS % 2 % (0-10); PLATELET MORPHOLOGY COMMENT NORMAL (NORMAL)
--- NOTE | 2020-07-06 07:14 | RAD ---
HISTORYSOBSTUDYCHEST, 1 [id number] cardiomediastinal silhouette. Multifocal bilateral pulmonary opacities appear stable to slightly improved. No sizable effusion or visible pneumothorax. No acute osseous finding.IMPRESSIONStable to slight improvement in multifocal bilateral pulmonary opacities.Electronically signed by: Grey Mustafa (Jul 06, 2020 07:12:39)
[2020-07-06] MEDS: ROBITUSSIN DM PO SCH ×4 (08:35→20:37)
[2020-07-06] MEDS: ATIVAN TAB 0.5 MG PO SCH (08:52)
[2020-07-06] MEDS: COREG TAB 6.25 MG PO SCH (08:52)
[2020-07-06] MEDS: JANUVIA PO SCH (08:55)
[2020-07-06] MEDS: LEVAQUIN PREMIX IV 500 MG 500 MG/100 ML BAG IV SCH (08:56)
[2020-07-06] MEDS: LOTENSIN TAB 10 MG PO SCH (08:57)
[2020-07-06] MEDS: LOVENOX INJ 30 MG SYR SC SCH ×2 (08:57→20:38)
[2020-07-06] MEDS: PEPCID TAB 20 MG PO SCH ×2 (08:59→20:37)
[2020-07-06] MEDS: PROTONIX TAB 40 MG PO SCH (09:00)
[2020-07-06] MEDS: REMDESIVIR 100 MG in NS 250 ML IV 250 ML IV SCH (09:00)
[2020-07-06] MEDS: ZOCOR TAB 40 MG PO SCH (09:00)
[2020-07-06] MEDS: TRICOR TAB 145 MG PO SCH (09:01)
[2020-07-06] MEDS: PULMICORT NEB TX 0.5 MG NEB SCH ×2 (09:15→21:32)
--- NOTE | 2020-07-06 11:52 | PCM.PROG ---
Progress Note Progress Note for Day of Date of Exam: 07/06/20 Subjective Subjective: Patient seen at bedside, no overnight events. He is being treated for pneumonia due to COVID-19 associated with hypoxia. He is currently on non- rebreather at 15L. Patient was not able to tolerate BiPAP or HHF yesterday. His sats right now are 88-90%. He is in no distress and appears comfortable, no labored breathing. Lbas: WBC 13.1 Hgb 12.1 CRP 89.7 ABG 7.48/33/54/21.6 CXR: multifocal bilateral pulmonary opacities Plan: Titrate O2 to keep sats > 90%. Continue Solumedrol, levaquin and remdesivir. Aggressive pulmonary toilet , continue duonebs and pulmicort. Monitor respiratory statu closely. Monitor AM labs. Time spent for clinical assessment, physical examination, reviewing labs/imaging , decision making and documentation more than 45 mins. Past Medical Family Social History Past Med/Fam/Surg Hx: No changes since H&P Allergies: Allergies No Known Drug Allergies Allergy (Verified 07/02/20 17:24) Review of Systems ROS: No change since H&P Vital Signs and I&O's Vital Signs: Temperature 98.6 F Pulse Rate [Left Brachial] 87 Pulse Rate 65 Respiratory Rate 32 Blood Pressure [Left Arm] 133/74 Blood Pressure 138/69 O2 Sat by Pulse Oximetry 86 Intake and Output: Intake & Output 07/03/20 07/04/20 07/05/20 07/06/20 23:59 23:59 23:59 23:59 Intake Total 3635 / 3635 3045 / 3045 2790 / 2790 290 / 290 Output Total 1800 / 1800 675 / 675 1100 / 1100 475 / 475 Balance 1835 / 1835 2370 / 2370 1690 / 1690 -185 / -185 Physical Exam Oriented: Normal Eyes: Normal Ear: Normal Nose: Normal Throat: Normal Respiratory: Generalized and Diminished Cardiovascular: Normal Auscultation: Bowel Sounds: Normal Tenderness: Normal Skin: Normal Musculoskeletal: Normal Psychiatric: Normal Mood Description: Calm Affect: Normal Speech Pattern: Clear and Appropriate Laboratory and Diagnostics Result Diagrams: 07/06/20 04:21 07/06/20 04:21 Labs: 07/02/20 22:22 Blood Blood Culture - Preliminary 07/02/20 20:38 Blood Blood Culture - Preliminary Laboratory WBC 13.1 X10^3/uL (3.6-10.0) H 07/06/20 04:21 RBC 3.82 X10^6/uL (4.7-6.0) L 07/06/20 04:21 Hgb 12.1 g/dL (13.5-18.0) L 07/06/20 04:21 Hct 35.1 % (42.0-54.0) L 07/06/20 04:21 MCV 91.9 fL (80.0-100.0) 07/06/20 04:21 MCH 31.8 pg (27.0-34.0) 07/06/20 04:21 MCHC 34.6 g/dL (33.0-35.0) 07/06/20 04:21 RDW 12.7 % (11.6-16.5) 07/06/20 04:21 Plt Count 245 X10^3/uL (150.0-450.0) 07/06/20 04:21 Plt Count Comment Adequate (ADEQUATE) 07/06/20 04:21 MPV 9.3 fL (7.4-11.0) 07/06/20 04:21 Neut % (Auto) 92.0 % (42.0-75.0) H 07/06/20 04:21 Lymph % (Auto) 3.1 % (21.0-51.0) L 07/06/20 04:21 [place] % (Auto) 4.9 % (0.0-13.0) 07/06/20 04:21 Eos % (Auto) 0.0 % (0.9-2.9) L 07/06/20 04:21 Baso % (Auto) 0 % (0.2-1.0) L 07/06/20 04:21 Neut # (Auto) 12.0 x10^3/uL (2.2-4.8) H 07/06/20 04:21 Lymph # (Auto) 0.4 X10^3/uL (1.3-2.9) L 07/06/20 04:21 [place] # (Auto) 0.6 x10^3/uL (0.3-0.8) 07/06/20 04:21 Eos # (Auto) 0.0 x10^3/uL (0.0-0.2) 07/06/20 04:21 Baso # (Auto) 0.0 X10^3/uL (0.0-0.1) 07/06/20 04:21 Absolute Nucleated RBC 0.1 /100WBC 07/06/20 04:21 Total Counted 100 07/06/20 04:21 Neutrophils % (Manual) 90 % (39-76) H 07/06/20 04:21 Band Neutrophils % 2 % (0-10) 07/06/20 04:21 Lymphocytes % (Manual) 4 % (13-43) L 07/06/20 04:21 Monocytes % (Manual) 4 % (4-9) 07/06/20 04:21 Plt Morphology Comment Normal (NORMAL) 07/06/20 04:21 RBC Morphology Normal (NORMAL) 07/06/20 04:21 PT 14.3 SECONDS (11.8-14.3) 07/02/20 20:38 INR Target Range - 07/02/20 20:38 INR 1.14 (0.8-1.3) 07/02/20 20:38 APTT 42.0 SECONDS (22.9-36.5) H 07/02/20 20:38 PTT Comment - 07/02/20 20:38 D-Dimer 1.50 ug/ml (0.0-0.57) H* 07/02/20 20:38 Sample Site Rr 07/06/20 05:00 ABG pH 7.480 (7.35-7.45) H 07/06/20 05:00 ABG pCO2 33.0 mmHg (35.0-45.0) L 07/06/20 05:00 ABG pO2 54.0 mmHg (80.0-100.0) L 07/06/20 05:00 ABG HCO3 24.6 mmol/L (22-26) 07/06/20 05:00 ABG O2 Saturation 90.0 % (90-100) 07/06/20 05:00 ABG Base Excess 1.5 mmol/L (-2.0-2.0) 07/06/20 05:00 Cipriano Test Pos 07/06/20 05:00 A-a Gradient 618.0 mmHg 07/06/20 05:00 FiO2 100.0 07/06/20 05:00 Blood Gas Comments Ez well sw 07/06/20 05:00 Sodium 138 mmol/L (136-145) 07/06/20 04:21 Corrected Sodium 140 mmol/L (136-145) 07/06/20 04:21 Potassium 3.9 mmol/L (3.5-5.1) 07/06/20 04:21 Chloride 102 mmol/L (98-107) 07/06/20 04:21 Carbon Dioxide 24.2 mmol/L (21-32) 07/06/20 04:21 BUN 21 mg/dL (7-18) H 07/06/20 04:21 Creatinine 0.78 mg/dL (0.70-1.30) 07/06/20 04:21 Est GFR (MDRD) Af Amer > 60 (>60) 07/06/20 04:21 Est GFR (MDRD) Non-Af > 60 (>60) 07/06/20 04:21 Glucose 184 mg/dL (65-99) H 07/06/20 04:21 POC Glucose (mg/dL) 172 mg/dL (65-99) H 07/06/20 11:13 Calcium 8.8 mg/dL (8.5-10.1) 07/06/20 04:21 Corrected Calcium 10.1 mg/dL (8.5-10.1) 07/06/20 04:21 Magnesium 1.7 mg/dL (1.7-2.9) 07/02/20 20:38 Ferritin 478 ng/mL (26-388) H 07/06/20 04:21 Total Bilirubin 0.60 mg/dL (0.2-1.0) 07/06/20 04:21 AST 78 Units/L (15-37) H 07/06/20 04:21 ALT 110 Units/L (12-78) H 07/06/20 04:21 Alkaline Phosphatase 72 Units/L (46-116) 07/06/20 04:21 Creatine Kinase 46 Units/L (39-308) 07/04/20 23:33 CK-MB (CK-2) < 1.0 ng/mL (0-4.0) 07/04/20 23:33 CK/CKMB % Calc 2.2 % (<4) 07/04/20 23:33 Troponin I < 0.02 ng/mL (0-1.5) 07/04/20 23:33 C-Reactive Protein 89.70 mg/L (0-3.0) H 07/06/20 04:21 B-Natriuretic Peptide 162 pg/mL (0-79) H 07/02/20 20:38 Total Protein 6.6 g/dL (6.4-8.2) 07/06/20 04:21 Albumin 2.4 g/dL (3.4-5.0) L 07/06/20 04:21 Globulin 4.2 g/dL (2.5-4.5) 07/06/20 04:21 Albumin/Globulin Ratio 0.6 Ratio (1.1-2.1) L 07/06/20 04:21 Blood Type A POSITIVE 07/03/20 10:01 Plan (1) Pneumonia due to COVID-19 virus: Status: Acute Plan: ADMIT, 1/2NS AT 75 ML/HR, REMDESIVIR 100MG IV DAILY, LEVAQUIN 500MG IV DAILY, LOVENOX 30MG SC BID, DUONEBS TID, PULMICORT NEBS BID, ROBITUSSIN DM 10 ML PO QID, SOLU-MEDROL 80MG IV Q8H, PEPCID 20MG PO BID, PROTONIX 40MG PO DAILY, AND HIS HOME MEDICATIONS WERE RESUMED. (2) Hypoxia: Status: Acute (3) HTN (hypertension): Status: Chronic Qualifiers: Hypertension type: essential hypertension Qualified Code(s): I10 - Essential (primary) hypertension (4) Hyperlipidemia: Status: Chronic Qualifiers: Hyperlipidemia type: mixed hyperlipidemia Qualified Code(s): E78.2 - Mixed hyperlipidemia (5) Diabetes mellitus: Status: Chronic Qualifiers: Diabetes mellitus complication status: without complication Diabetes mellitus type: type 2
[2020-07-06] MEDS: KLONOPIN TAB 0.5 MG PO PRN ×2 (14:18→20:37)
[2020-07-06] MEDS: AFRIN NASAL SPRAY PRN (15:35)
[2020-07-06] MEDS ORDERED: NS 1/2 1000 ML IV 1,000 ML IV ONE (20:32)
[2020-07-06] MEDS: NS 1/2 1000 ML IV 1,000 ML IV SCH (20:36)
[2020-07-07] MEDS ORDERED: GLUCOPHAGE ONE ×2 (04:59→16:52)
[2020-07-07] MEDS: SOLU-Medrol 40 MG VIAL IVP SCH (05:33)
[2020-07-07] MEDS: SUBOXONE TAB SL SCH ×3 (05:34→21:50)
[2020-07-07 05:35] LABS: BASOPHILS % (AUTO) 0.2 % (0.2-1.0); HEMATOCRIT 35.7 % (42.0-54.0); HEMOGLOBIN 12.3 g/dL (13.5-18.0); LYMPHOCYTES # (AUTO) 0.5 X10^3/uL (1.3-2.9); LYMPHOCYTES % (AUTO) 3.1 % (21.0-51.0); MEAN CORPUSCULAR HEMOGLOBIN 31.5 pg (27.0-34.0); MEAN CORPUSCULAR HGB CONC 34.3 g/dL (33.0-35.0); MEAN CORPUSCULAR VOLUME 91.8 fL (80.0-100.0); MONOCYTES # (AUTO) 0.4 x10^3/uL (0.3-0.8); NEUTROPHILS # (AUTO) 13.9 x10^3/uL (2.2-4.8); NEUTROPHILS % (AUTO) 93.7 % (42.0-75.0); PLATELET COUNT 204 X10^3/uL (150.0-450.0); RED BLOOD COUNT 3.89 X10^6/uL (4.7-6.0); RED CELL DISTRIBUTION WIDTH 12.8 % (11.6-16.5); WHITE BLOOD COUNT 14.9 X10^3/uL (3.6-10.0)
[2020-07-07] MEDS: DUONEB 0.5 MG/3 MG (3 mL) NEB SCH ×3 (05:50→20:50)
[2020-07-07 05:59] LABS: ALANINE AMINOTRANSFERASE 94 Units/L (12-78); ALBUMIN 2.4 g/dL (3.4-5.0); ALKALINE PHOSPHATASE 76 Units/L (46-116); ASPARTATE AMINO TRANSFERASE 48 Units/L (15-37); BLOOD UREA NITROGEN 26 mg/dL (7-18); CALCIUM 9.1 mg/dL (8.5-10.1); CARBON DIOXIDE 24.5 mmol/L (21-32); CHLORIDE 103 mmol/L (98-107); COR CA(FOR HYPOALB) 10.4 mg/dL (8.5-10.1); COR NA(FOR HYPERGLY) 140 mmol/L (136-145); CREATININE 0.81 mg/dL (0.70-1.30); SODIUM 138 mmol/L (136-145); TOTAL PROTEIN 6.6 g/dL (6.4-8.2); eGFR NON BLACK RACES > 60 (>60)
[2020-07-07] MEDS: GLUCOPHAGE PO SCH ×2 (06:01→17:32)
[2020-07-07] MEDS: TESSALON PERLES PO SCH ×3 (06:01→21:50)
[2020-07-07 06:44] LABS: PLATELET MORPHOLOGY COMMENT NORMAL (NORMAL)
--- NOTE | 2020-07-07 08:05 | RAD ---
HISTORYcovidSTUDYPortable AP [id number] heart size and contour. There is noted interval progression of bilateral confluent airspace disease; relative sparing left upper lobe. No pneumothorax or pleural fluid seen.IMPRESSIONInterval increase in bilateral pulmonary infiltrates consistent with progression of pneumonia.Electronically signed by: LISA SIDDIQI (Jul 07, 2020 08:03:27)
[2020-07-07] MEDS: PULMICORT NEB TX 0.5 MG NEB SCH ×2 (09:31→20:50)
[2020-07-07] MEDS: COREG TAB 6.25 MG PO SCH (09:50)
[2020-07-07] MEDS: ZOCOR TAB 40 MG PO SCH (09:51)
[2020-07-07] MEDS: PROTONIX TAB 40 MG PO SCH (09:53)
[2020-07-07] MEDS: PEPCID TAB 20 MG PO SCH ×2 (09:53→21:50)
[2020-07-07] MEDS: REMDESIVIR 100 MG in NS 250 ML IV 250 ML IV SCH (09:53)
[2020-07-07] MEDS: TRICOR TAB 145 MG PO SCH (09:53)
[2020-07-07] MEDS: JANUVIA PO SCH (09:54)
[2020-07-07] MEDS: LEVAQUIN PREMIX IV 500 MG 500 MG/100 ML BAG IV SCH (09:54)
[2020-07-07] MEDS: LOTENSIN TAB 10 MG PO SCH (09:54)
[2020-07-07] MEDS: ROBITUSSIN DM PO SCH ×4 (09:55→21:50)
[2020-07-07] MEDS: LOVENOX INJ 30 MG SYR SC SCH ×2 (09:55→21:49)
[2020-07-07 10:32] LABS: ABG BASE EXCESS 2.4 mmol/L (-2.0-2.0); ABG HCO3 26.4 mmol/L (22-26)
--- NOTE | 2020-07-07 12:44 | PCM.PROG ---
Progress Note Progress Note for Day of Date of Exam: 07/07/20 Subjective Subjective: Patient seen at bedside, no overnight events. He is being treated for pneumonia due to COVID-19 associated with hypoxia. He was placed on BiPAP overnight due to drop in O2 sats. . He was placed back on the NRB this morning to eat breakfast and now is back on BiPAP at 100% FiO2. His sats remain in low- mid 90s. He appears to be resting comfortably with no labored breathing. Labs: WBC 14.9 Hgb 12.3 CRP 57 CXR: progressed of bilateral infiltrates and pneumonia. Received one unit of convalescent plasma on 07/03/20 Plan: Repeat ABG. Titrate O2 to keep sats > 90%. Continue BiPAP prn. Continue Solumedrol, levaquin and remdesivir. Aggressive pulmonary toilet , continue duonebs and pulmicort. Monitor respiratory status closely. Monitor AM labs. Will order another dose of plasma. Patient remains in a critical state. Critical care Time spent for clinical assessment, physical examination, reviewing labs/imaging , decision making and documentation more than 75 mins. Past Medical Family Social History Past Med/Fam/Surg Hx: No changes since H&P Allergies: Allergies No Known Drug Allergies Allergy (Verified 07/02/20 17:24) Review of Systems ROS: No change since H&P Vital Signs and I&O's Vital Signs: Temperature 98.3 F Pulse Rate [Left Brachial] 87 Pulse Rate 59 Respiratory Rate 26 Blood Pressure [Left Arm] 133/74 Blood Pressure 152/77 O2 Sat by Pulse Oximetry 94 Intake and Output: Intake & Output 07/04/20 07/05/20 07/06/20 07/07/20 23:59 23:59 23:59 23:59 Intake Total 3045 / 3045 2790 / 2790 3928 / 3928 200 / 200 Output Total 675 / 675 1100 / 1100 1825 / 1825 400 / 400 Balance 2370 / 2370 1690 / 1690 2103 / 2103 -200 / -200 Physical Exam Oriented: Normal Eyes: Normal Ear: Normal Nose: Normal Throat: Normal Respiratory: Generalized and Diminished Cardiovascular: Normal Auscultation: Bowel Sounds: Normal Tenderness: Normal Skin: Normal Musculoskeletal: Normal Psychiatric: Normal Mood Description: Calm Affect: Normal Speech Pattern: Artificially Ventilated (on BiPAP ) Laboratory and Diagnostics Result Diagrams: 07/07/20 04:40 07/07/20 04:40 Labs: 07/02/20 22:22 Blood Blood Culture - Preliminary 07/02/20 20:38 Blood Blood Culture - Preliminary Laboratory WBC 14.9 X10^3/uL (3.6-10.0) H 07/07/20 04:40 RBC 3.89 X10^6/uL (4.7-6.0) L 07/07/20 04:40 Hgb 12.3 g/dL (13.5-18.0) L 07/07/20 04:40 Hct 35.7 % (42.0-54.0) L 07/07/20 04:40 MCV 91.8 fL (80.0-100.0) 07/07/20 04:40 MCH 31.5 pg (27.0-34.0) 07/07/20 04:40 MCHC 34.3 g/dL (33.0-35.0) 07/07/20 04:40 RDW 12.8 % (11.6-16.5) 07/07/20 04:40 Plt Count 204 X10^3/uL (150.0-450.0) 07/07/20 04:40 Plt Count Comment Adequate (ADEQUATE) 07/07/20 04:40 MPV 9.0 fL (7.4-11.0) 07/07/20 04:40 Neut % (Auto) 93.7 % (42.0-75.0) H 07/07/20 04:40 Lymph % (Auto) 3.1 % (21.0-51.0) L 07/07/20 04:40 [place] % (Auto) 3.0 % (0.0-13.0) 07/07/20 04:40 Eos % (Auto) 0.0 % (0.9-2.9) L 07/07/20 04:40 Baso % (Auto) 0.2 % (0.2-1.0) 07/07/20 04:40 Neut # (Auto) 13.9 x10^3/uL (2.2-4.8) H 07/07/20 04:40 Lymph # (Auto) 0.5 X10^3/uL (1.3-2.9) L 07/07/20 04:40 [place] # (Auto) 0.4 x10^3/uL (0.3-0.8) 07/07/20 04:40 Eos # (Auto) 0.0 x10^3/uL (0.0-0.2) 07/07/20 04:40 Baso # (Auto) 0.0 X10^3/uL (0.0-0.1) 07/07/20 04:40 Absolute Nucleated RBC 0.0 /100WBC 07/07/20 04:40 Total Counted 100 07/07/20 04:40 Neutrophils % (Manual) 95 % (39-76) H 07/07/20 04:40 Band Neutrophils % 2 % (0-10) 07/06/20 04:21 Lymphocytes % (Manual) 5 % (13-43) L 07/07/20 04:40 Monocytes % (Manual) 4 % (4-9) 07/06/20 04:21 Plt Morphology Comment Normal (NORMAL) 07/07/20 04:40 RBC Morphology Normal (NORMAL) 07/07/20 04:40 PT 14.3 SECONDS (11.8-14.3) 07/02/20 20:38 INR Target Range - 07/02/20 20:38 INR 1.14 (0.8-1.3) 07/02/20 20:38 APTT 42.0 SECONDS (22.9-36.5) H 07/02/20 20:38 PTT Comment - 07/02/20 20:38 D-Dimer 1.50 ug/ml (0.0-0.57) H* 07/02/20 20:38 Sample Site Right brachial 07/07/20 10:25 ABG pH 7.450 (7.35-7.45) 07/07/20 10:25 ABG pCO2 38.0 mmHg (35.0-45.0) 07/07/20 10:25 ABG pO2 66.0 mmHg (80.0-100.0) L 07/07/20 10:25 ABG HCO3 26.4 mmol/L (22-26) H 07/07/20 10:25 ABG O2 Saturation 94.0 % (90-100) 07/07/20 10:25 ABG Base Excess 2.4 mmol/L (-2.0-2.0) H 07/07/20 10:25 Cipriano Test Na 07/07/20 10:25 A-a Gradient 600.0 mmHg 07/07/20 10:25 FiO2 100.0 07/07/20 10:25 Blood Gas Comments Ez well aw 07/07/20 10:25 Sodium 138 mmol/L (136-145) 07/07/20 04:40 Corrected Sodium 140 mmol/L (136-145) 07/07/20 04:40 Potassium 4.1 mmol/L (3.5-5.1) 07/07/20 04:40 Chloride 103 mmol/L (98-107) 07/07/20 04:40 Carbon Dioxide 24.5 mmol/L (21-32) 07/07/20 04:40 BUN 26 mg/dL (7-18) H 07/07/20 04:40 Creatinine 0.81 mg/dL (0.70-1.30) 07/07/20 04:40 Est GFR (MDRD) Af Amer > 60 (>60) 07/07/20 04:40 Est GFR (MDRD) Non-Af > 60 (>60) 07/07/20 04:40 Glucose 191 mg/dL (65-99) H 07/07/20 04:40 POC Glucose (mg/dL) 181 mg/dL (65-99) H 07/07/20 12:32 Calcium 9.1 mg/dL (8.5-10.1) 07/07/20 04:40 Corrected Calcium 10.4 mg/dL (8.5-10.1) H 07/07/20 04:40 Magnesium 1.7 mg/dL (1.7-2.9) 07/02/20 20:38 Ferritin 478 ng/mL (26-388) H 07/06/20 04:21 Total Bilirubin 0.60 mg/dL (0.2-1.0) 07/07/20 04:40 AST 48 Units/L (15-37) H 07/07/20 04:40 ALT 94 Units/L (12-78) H 07/07/20 04:40 Alkaline Phosphatase 76 Units/L (46-116) 07/07/20 04:40 Creatine Kinase 46 Units/L (39-308) 07/04/20 23:33 CK-MB (CK-2) < 1.0 ng/mL (0-4.0) 07/04/20 23:33 CK/CKMB % Calc 2.2 % (<4) 07/04/20 23:33 Troponin I < 0.02 ng/mL (0-1.5) 07/04/20 23:33 C-Reactive Protein 57.00 mg/L (0-3.0) H 07/07/20 04:40 B-Natriuretic Peptide 162 pg/mL (0-79) H 07/02/20 20:38 Total Protein 6.6 g/dL (6.4-8.2) 07/07/20 04:40 Albumin 2.4 g/dL (3.4-5.0) L 07/07/20 04:40 Globulin 4.2 g/dL (2.5-4.5) 07/07/20 04:40 Albumin/Globulin Ratio 0.6 Ratio (1.1-2.1) L 07/07/20 04:40 Blood Type A POSITIVE 07/03/20 10:01 Plan (1) Pneumonia due to COVID-19 virus: Status: Acute Plan: ADMIT, 1/2NS AT 75 ML/HR, REMDESIVIR 100MG IV DAILY, LEVAQUIN 500MG IV DAILY, LOVENOX 30MG SC BID, DUONEBS TID, PULMICORT NEBS BID, ROBITUSSIN DM 10 ML PO QID, SOLU-MEDROL 80MG IV Q8H, PEPCID 20MG PO BID, PROTONIX 40MG PO DAILY, AND HIS HOME MEDICATIONS WERE RESUMED. (2) Hypoxia: Status: Acute (3) HTN (hypertension): Status: Chronic Qualifiers: Hypertension type: essential hypertension Qualified Code(s): I10 - Essential (primary) hypertension (4) Hyperlipidemia: Status: Chronic Qualifiers: Hyperlipidemia type: mixed hyperlipidemia Qualified Code(s): E78.2 - Mixed hyperlipidemia (5) Diabetes mellitus: Status: Chronic Qualifiers: Diabetes mellitus type: type 2 Diabetes mellitus complication status: without complication
[2020-07-07] MEDS: SOLU-Medrol 125 MG VIAL IVP SCH ×2 (14:45→21:50)
[2020-07-07] MEDS: KLONOPIN TAB 0.5 MG PO PRN (15:00)
[2020-07-07] MEDS ORDERED: NS 1/2 1000 ML IV 0 ML IV ONE (16:56)
[2020-07-08] MEDS ORDERED: NS 1000 ML 1,000 ML ONE (03:52)
[2020-07-08] MEDS ORDERED: TYLENOL 325 MG TAB PO ONE ×2 (04:00→04:03)
[2020-07-08] MEDS ORDERED: BENADRYL INJ 50 MG VIAL IVP ONE (04:00)
[2020-07-08] MEDS ORDERED: BENADRYL INJ 50 MG VIAL ONE (04:02)
[2020-07-08] MEDS ORDERED: NS 250 ML IV 250 ML IV ONE (04:25)
[2020-07-08] MEDS ORDERED: GLUCOPHAGE ONE ×2 (04:59→17:02)
[2020-07-08 05:34] LABS: BASOPHILS % (AUTO) 0.3 % (0.2-1.0); HEMATOCRIT 37.2 % (42.0-54.0); HEMOGLOBIN 12.8 g/dL (13.5-18.0); LYMPHOCYTES # (AUTO) 0.3 X10^3/uL (1.3-2.9); LYMPHOCYTES % (AUTO) 1.6 % (21.0-51.0); MEAN CORPUSCULAR HEMOGLOBIN 31.5 pg (27.0-34.0); MEAN CORPUSCULAR HGB CONC 34.3 g/dL (33.0-35.0); MEAN CORPUSCULAR VOLUME 91.7 fL (80.0-100.0); MEAN PLATELET VOLUME 8.8 fL (7.4-11.0); MONOCYTES # (AUTO) 0.5 x10^3/uL (0.3-0.8); MONOCYTES % (AUTO) 2.8 % (0.0-13.0); NEUTROPHILS # (AUTO) 17.3 x10^3/uL (2.2-4.8); NEUTROPHILS % (AUTO) 95.3 % (42.0-75.0); PLATELET COUNT 214 X10^3/uL (150.0-450.0); RED BLOOD COUNT 4.06 X10^6/uL (4.7-6.0); RED CELL DISTRIBUTION WIDTH 12.9 % (11.6-16.5); WHITE BLOOD COUNT 18.2 X10^3/uL (3.6-10.0)
[2020-07-08] MEDS: DUONEB 0.5 MG/3 MG (3 mL) NEB SCH ×3 (05:34→20:50)
[2020-07-08 05:45] LABS: ALANINE AMINOTRANSFERASE 82 Units/L (12-78); ALBUMIN 2.4 g/dL (3.4-5.0); ALKALINE PHOSPHATASE 76 Units/L (46-116); ASPARTATE AMINO TRANSFERASE 37 Units/L (15-37); BLOOD UREA NITROGEN 29 mg/dL (7-18); CALCIUM 9.1 mg/dL (8.5-10.1); CARBON DIOXIDE 26.3 mmol/L (21-32); CHLORIDE 104 mmol/L (98-107); COR CA(FOR HYPOALB) 10.4 mg/dL (8.5-10.1); COR NA(FOR HYPERGLY) 142 mmol/L (136-145); CREATININE 0.93 mg/dL (0.70-1.30); SODIUM 139 mmol/L (136-145); TOTAL PROTEIN 6.7 g/dL (6.4-8.2); eGFR NON BLACK RACES > 60 (>60)
[2020-07-08] MEDS: TESSALON PERLES PO SCH ×3 (05:52→21:00)
[2020-07-08] MEDS: SOLU-Medrol 125 MG VIAL IVP SCH ×3 (05:55→21:00)
[2020-07-08] MEDS: SUBOXONE TAB SL SCH ×2 (05:57→15:20)
[2020-07-08] MEDS: GLUCOPHAGE PO SCH ×2 (06:08→17:00)
[2020-07-08 06:50] LABS: PLATELET MORPHOLOGY COMMENT NORMAL (NORMAL)
[2020-07-08] MEDS: LEVAQUIN PREMIX IV 500 MG 500 MG/100 ML BAG IV SCH (09:03)
[2020-07-08] MEDS: ROBITUSSIN DM PO SCH ×4 (09:03→21:00)
[2020-07-08] MEDS: JANUVIA PO SCH (09:03)
[2020-07-08] MEDS: COREG TAB 6.25 MG PO SCH (09:04)
[2020-07-08] MEDS: LOTENSIN TAB 10 MG PO SCH (09:05)
[2020-07-08] MEDS: PEPCID TAB 20 MG PO SCH ×2 (09:05→21:00)
[2020-07-08] MEDS: LOVENOX INJ 30 MG SYR SC SCH ×2 (09:06→21:00)
[2020-07-08] MEDS: ZOCOR TAB 40 MG PO SCH (09:06)
[2020-07-08] MEDS: PROTONIX TAB 40 MG PO SCH (09:06)
[2020-07-08] MEDS: TRICOR TAB 145 MG PO SCH (09:06)
--- NOTE | 2020-07-08 09:22 | RAD ---
HISTORYcovid f/uSTUDYCHEST, 1 [id number] cardiomediastinal silhouette. Stable appearance of patchy multifocal bilateral pulmonary opacities. No sizable effusion or visible pneumothorax. No acute osseous finding.IMPRESSIONNo significant interval change.Electronically signed by: Grey Mustafa (Jul 08, 2020 09:20:54)
[2020-07-08] MEDS: PULMICORT NEB TX 0.5 MG NEB SCH ×2 (09:29→20:50)
[2020-07-08] MEDS: ZOSYN VIAL 3.375 GRAMS 3.375 G in NS 100 ML IV + SPIKE MINIBAG* 100 ML IV SCH ×3 (10:49→21:00)
[2020-07-08] MEDS: KLONOPIN TAB 0.5 MG PO PRN (12:01)
--- NOTE | 2020-07-08 12:34 | PCM.PROG ---
Progress Note Progress Note for Day of Date of Exam: 07/08/20 Subjective Subjective: Patient seen at bedside, no overnight events. He is being treated for pneumonia due to COVID-19 associated with hypoxia. He was on BiPAP most of the day yesterday and overnight. He states he feels better. He did get another unit of plasma yesterday. He was placed back on the NRB this morning to eat breakfast and now is back on BiPAP at 100% FiO2. His sats remain in mid 90s. He appears to be resting comfortably with no labored breathing. Labs: WBC 18.2 Hgb 12.8 CRP 38 CXR: no change compared to yesterday Received 2 units of convalescent plasma on 07/03/20 and 07/07/2020 Plan: Titrate O2 to keep sats > 90%. Continue BiPAP prn and NRB when eating. Continue Solumedrol, increase levaquin to 750mg IV . Completed course of remdesivir. Will add Zosyn. Aggressive pulmonary toilet , continue duonebs and pulmicort. Monitor respiratory status closely. Critical care Time spent for clinical assessment, physical examination, reviewing labs/imaging , decision making and documentation more than 75 mins. Past Medical Family Social History Past Med/Fam/Surg Hx: No changes since H&P Allergies: Allergies No Known Drug Allergies Allergy (Verified 07/02/20 17:24) Review of Systems ROS: No change since H&P Vital Signs and I&O's Vital Signs: Temperature 98.4 F Pulse Rate [Left Brachial] 87 Pulse Rate 57 Respiratory Rate 20 Blood Pressure [Left Arm] 133/74 Blood Pressure 130/69 O2 Sat by Pulse Oximetry 90 Intake and Output: Intake & Output 07/05/20 07/06/20 07/07/20 07/08/20 23:59 23:59 23:59 23:59 Intake Total 2790 / 2790 3928 / 3928 1160 / 1160 730 / 730 Output Total 1100 / 1100 1825 / 1825 1200 / 1200 400 / 400 Balance 1690 / 1690 2103 / 2103 -40 / -40 330 / 330 Physical Exam Oriented: Normal Eyes: Normal Ear: Normal Nose: Normal Throat: Normal Respiratory: Generalized and Diminished Cardiovascular: Normal Auscultation: Bowel Sounds: Normal Tenderness: Normal Skin: Normal Musculoskeletal: Normal Psychiatric: Normal Mood Description: Calm Affect: Normal Speech Pattern: Clear and Appropriate Laboratory and Diagnostics Result Diagrams: 07/08/20 04:30 07/08/20 04:30 Labs: 07/02/20 22:22 Blood Blood Culture - Final 07/02/20 20:38 Blood Blood Culture - Final Laboratory WBC 18.2 X10^3/uL (3.6-10.0) H 07/08/20 04:30 RBC 4.06 X10^6/uL (4.7-6.0) L 07/08/20 04:30 Hgb 12.8 g/dL (13.5-18.0) L 07/08/20 04:30 Hct 37.2 % (42.0-54.0) L 07/08/20 04:30 MCV 91.7 fL (80.0-100.0) 07/08/20 04:30 MCH 31.5 pg (27.0-34.0) 07/08/20 04:30 MCHC 34.3 g/dL (33.0-35.0) 07/08/20 04:30 RDW 12.9 % (11.6-16.5) 07/08/20 04:30 Plt Count 214 X10^3/uL (150.0-450.0) 07/08/20 04:30 Plt Count Comment Adequate (ADEQUATE) 07/08/20 04:30 MPV 8.8 fL (7.4-11.0) 07/08/20 04:30 Neut % (Auto) 95.3 % (42.0-75.0) H 07/08/20 04:30 Lymph % (Auto) 1.6 % (21.0-51.0) L 07/08/20 04:30 [place] % (Auto) 2.8 % (0.0-13.0) 07/08/20 04:30 Eos % (Auto) 0.0 % (0.9-2.9) L 07/08/20 04:30 Baso % (Auto) 0.3 % (0.2-1.0) 07/08/20 04:30 Neut # (Auto) 17.3 x10^3/uL (2.2-4.8) H 07/08/20 04:30 Lymph # (Auto) 0.3 X10^3/uL (1.3-2.9) L 07/08/20 04:30 [place] # (Auto) 0.5 x10^3/uL (0.3-0.8) 07/08/20 04:30 Eos # (Auto) 0.0 x10^3/uL (0.0-0.2) 07/08/20 04:30 Baso # (Auto) 0.0 X10^3/uL (0.0-0.1) 07/08/20 04:30 Absolute Nucleated RBC 0.0 /100WBC 07/08/20 04:30 Total Counted 100 07/08/20 04:30 Neutrophils % (Manual) 97 % (39-76) H 07/08/20 04:30 Band Neutrophils % 2 % (0-10) 07/06/20 04:21 Lymphocytes % (Manual) 3 % (13-43) L 07/08/20 04:30 Monocytes % (Manual) 4 % (4-9) 07/06/20 04:21 Plt Morphology Comment Normal (NORMAL) 07/08/20 04:30 RBC Morphology Normal (NORMAL) 07/08/20 04:30 PT 14.3 SECONDS (11.8-14.3) 07/02/20 20:38 INR Target Range - 07/02/20 20:38 INR 1.14 (0.8-1.3) 07/02/20 20:38 APTT 42.0 SECONDS (22.9-36.5) H 07/02/20 20:38 PTT Comment - 07/02/20 20:38 D-Dimer 1.50 ug/ml (0.0-0.57) H* 07/02/20 20:38 Sample Site Right brachial 07/07/20 10:25 ABG pH 7.450 (7.35-7.45) 07/07/20 10:25 ABG pCO2 38.0 mmHg (35.0-45.0) 07/07/20 10:25 ABG pO2 66.0 mmHg (80.0-100.0) L 07/07/20 10:25 ABG HCO3 26.4 mmol/L (22-26) H 07/07/20 10:25 ABG O2 Saturation 94.0 % (90-100) 07/07/20 10:25 ABG Base Excess 2.4 mmol/L (-2.0-2.0) H 07/07/20 10:25 Cipriano Test Na 07/07/20 10:25 A-a Gradient 600.0 mmHg 07/07/20 10:25 FiO2 100.0 07/07/20 10:25 Blood Gas Comments Ez well aw 07/07/20 10:25 Sodium 139 mmol/L (136-145) 07/08/20 04:30 Corrected Sodium 142 mmol/L (136-145) 07/08/20 04:30 Potassium 4.4 mmol/L (3.5-5.1) 07/08/20 04:30 Chloride 104 mmol/L (98-107) 07/08/20 04:30 Carbon Dioxide 26.3 mmol/L (21-32) 07/08/20 04:30 BUN 29 mg/dL (7-18) H 07/08/20 04:30 Creatinine 0.93 mg/dL (0.70-1.30) 07/08/20 04:30 Est GFR (MDRD) Af Amer > 60 (>60) 07/08/20 04:30 Est GFR (MDRD) Non-Af > 60 (>60) 07/08/20 04:30 Glucose 205 mg/dL (65-99) H 07/08/20 04:30 POC Glucose (mg/dL) 134 mg/dL (65-99) H 07/07/20 19:34 Calcium 9.1 mg/dL (8.5-10.1) 07/08/20 04:30 Corrected Calcium 10.4 mg/dL (8.5-10.1) H 07/08/20 04:30 Magnesium 1.7 mg/dL (1.7-2.9) 07/02/20 20:38 Ferritin 478 ng/mL (26-388) H 07/06/20 04:21 Total Bilirubin 0.70 mg/dL (0.2-1.0) 07/08/20 04:30 AST 37 Units/L (15-37) 07/08/20 04:30 ALT 82 Units/L (12-78) H 07/08/20 04:30 Alkaline Phosphatase 76 Units/L (46-116) 07/08/20 04:30 Creatine Kinase 46 Units/L (39-308) 07/04/20 23:33 CK-MB (CK-2) < 1.0 ng/mL (0-4.0) 07/04/20 23:33 CK/CKMB % Calc 2.2 % (<4) 07/04/20 23:33 Troponin I < 0.02 ng/mL (0-1.5) 07/04/20 23:33 C-Reactive Protein 38.70 mg/L (0-3.0) H 07/08/20 04:30 B-Natriuretic Peptide 162 pg/mL (0-79) H 07/02/20 20:38 Total Protein 6.7 g/dL (6.4-8.2) 07/08/20 04:30 Albumin 2.4 g/dL (3.4-5.0) L 07/08/20 04:30 Globulin 4.3 g/dL (2.5-4.5) 07/08/20 04:30 Albumin/Globulin Ratio 0.6 Ratio (1.1-2.1) L 07/08/20 04:30 Blood Type A POSITIVE 07/03/20 10:01 Plan (1) Pneumonia due to COVID-19 virus: Status: Acute Plan: ADMIT, 1/2NS AT 75 ML/HR, REMDESIVIR 100MG IV DAILY, LEVAQUIN 500MG IV DAILY, LOVENOX 30MG SC BID, DUONEBS TID, PULMICORT NEBS BID, ROBITUSSIN DM 10 ML PO QID, SOLU-MEDROL 80MG IV Q8H, PEPCID 20MG PO BID, PROTONIX 40MG PO DAILY, AND HIS HOME MEDICATIONS WERE RESUMED. (2) Hypoxia: Status: Acute (3) HTN (hypertension): Status: Chronic Qualifiers: Hypertension type: essential hypertension Qualified Code(s): I10 - Essential (primary) hypertension (4) Hyperlipidemia: Status: Chronic Qualifiers: Hyperlipidemia type: mixed hyperlipidemia Qualified Code(s): E78.2 - Mixed hyperlipidemia (5) Diabetes mellitus: Status: Chronic Qualifiers: Diabetes mellitus complication status: without complication Diabetes mellitus type: type 2
--- NOTE | 2020-07-08 19:28 | PCM.PROG ---
Progress Note - Progress Note for Day of Date of Exam: 07/05/20 - Subjective Subjective: IS BEING TREATED FOR PNEUMONIA DUE TO COVID-19 AND HYPOXIA. TODAY, HE IS ALERT AND ORIENTED, LYING IN BED ON MORNING ROUNDS. HE CONTINUES WITH COMPLAINTS OF COUGH, SHORTNESS OF BREATH, AND GENERALIZED WEAKNESS. HE IS CURRENTLY UTILIZING OXYGEN VIA NON-REBREATHER. HIS OXYGEN SATUR ATIONS HAVE BEEN 85-93% ON THE NON-REBREATHER. HE DENIES SIGNIFICANT IMPROVEMENT IN SYMPTOMS SINCE ADMISSION. HE REPORTS INCREASE IN ANXIETY TODAY. STAFF REPORTS THAT THEY ATTEMPTED TO PLACE PATIENT ON HEATED HIGH FLOW OXYGEN AND THE BIPAP. HE WAS UNABLE TO TOLERATED BOTH. ON EXAMINATION, HEART IS REGULAR IN RATE AND RHYTHM. BILATERAL LUNGS ARE NOTED WITH SCATTERED WHEEZING THROUGHOUT. ABDOMEN IS ROUND, SOFT, AND NON-TENDER WITH NORMAL BOWEL SOUNDS NOTED IN ALL QUADRANTS. HIS VITALS THIS MORNING ARE: 98.7-76-24-89%NRB-137/70. LABS WERE OBTAINED. ABNORMAL LAB VALUES INCLUDE THE FOLLOWING: WBC 10.7, RBC 3.80, HGB 12.3, HCT 35.3, BUN 22, GLUCOSE 181, FERRITIN 645, AST 117, ALT 120, CRP 79.40, ALBUMIN 2.4. AN ABG WAS REPEATED TODAY AND REVEALED: PH 7.540, PC02 29, P02 64, HC03 24.8, 02 SAT 95, FI02 100. BLOOD CULTURES ARE PENDING. CHEST XRAY REVEALED: No significant change from the prior examination. HE IS CURRENTLY RECEIVIN/2NS AT 75 ML/HR, REMDESIVIR 100MG IV DAILY, LEVAQUIN 500MG IV DAILY, LOVENOX 30MG SC BID, DUONEBS TID, PULMICORT NEBS BID, ROBITUSSIN DM 10 ML PO QID, SOLU-MEDROL 80MG IV Q8H, PEPCID 20MG PO BID, PROTONIX 40MG PO DAILY, AND HIS HOME MEDICATIONS WERE RESUMED. HE HAS RECEIVED ONE UNIT OF CONVALESCENT PLASMA SINCE ADMISSION. WE WILL CONTINUE WITH CURRENT PLAN OF CARE TODAY AND ADD ATIVAN 0.5MG PO BID. OTHERWISE, WE WILL FOLLOW UP WITH AM LABS AND CONTINUE TO MONITOR. TIME SPENT ON CLINICAL ASSESSMENT, REVIEWING LABS AND IMAGING, DECISION MAKING, AND DOCUMENT ATION GREATER THAN 45 MINUTES. - Past Medical Family Social History Past Med/Fam/Surg Hx: No changes since H&P Allergies: Allergies No Known Drug Allergies Allergy (Verified 07/02/20 17:24) - Review of Systems ROS: No change since H&P - Vital Signs and I&O's Vital Signs: Temperature 97.7 F Pulse Rate [Left Brachial] 87 Pulse Rate 51 Respiratory Rate 22 Blood Pressure [Left Arm] 133/74 Blood Pressure 143/64 O2 Sat by Pulse Oximetry 85 Intake and Output: Intake & Output 07/06/20 07/07/20 07/08/20 07/09/20 11:59 11:59 11:59 11:59 Intake Total 2315 / 2315 3838 / 3838 1690 / 1690 834 / 834 Output Total 1275 / 1275 1750 / 1750 1200 / 1200 761 / 761 Balance 1040 / 1040 2088 / 2088 490 / 490 73 / 73 - Physical Exam Oriented: Normal Eyes: Normal Ear: Normal Nose: Normal Throat: Normal Respiratory: Generalized, Diminished, Wheezes Cardiovascular: Normal : Normal Auscultation: Bowel Sounds: Normal Palpation: Normal Tenderness: Normal Skin: Normal Musculoskeletal: Normal Psychiatric: Normal Mood Description: Calm Affect: Normal Speech Pattern: Clear, Appropriate - Laboratory and Diagnostics Result Diagrams: 07/08/20 04:30 07/08/20 04:30 Labs: 07/02/20 22:22 Blood Blood Culture - Final 07/02/20 20:38 Blood Blood Culture - Final Laboratory WBC 18.2 X10^3/uL (3.6-10.0) H 07/08/20 04:30 RBC 4.06 X10^6/uL (4.7-6.0) L 07/08/20 04:30 Hgb 12.8 g/dL (13.5-18.0) L 07/08/20 04:30 Hct 37.2 % (42.0-54.0) L 07/08/20 04:30 MCV 91.7 fL (80.0-100.0) 07/08/20 04:30 MCH 31.5 pg (27.0-34.0) 07/08/20 04:30 MCHC 34.3 g/dL (33.0-35.0) 07/08/20 04:30 RDW 12.9 % (11.6-16.5) 07/08/20 04:30 Plt Count 214 X10^3/uL (150.0-450.0) 07/08/20 04:30 Plt Count Comment Adequate (ADEQUATE) 07/08/20 04:30 MPV 8.8 fL (7.4-11.0) 07/08/20 04:30 Neut % (Auto) 95.3 % (42.0-75.0) H 07/08/20 04:30 Lymph % (Auto) 1.6 % (21.0-51.0) L 07/08/20 04:30 [place] % (Auto) 2.8 % (0.0-13.0) 07/08/20 04:30 Eos % (Auto) 0.0 % (0.9-2.9) L 07/08/20 04:30 Baso % (Auto) 0.3 % (0.2-1.0) 07/08/20 04:30 Neut # (Auto) 17.3 x10^3/uL (2.2-4.8) H 07/08/20 04:30 Lymph # (Auto) 0.3 X10^3/uL (1.3-2.9) L 07/08/20 04:30 [place] # (Auto) 0.5 x10^3/uL (0.3-0.8) 07/08/20 04:30 Eos # (Auto) 0.0 x10^3/uL (0.0-0.2) 07/08/20 04:30 Baso # (Auto) 0.0 X10^3/uL (0.0-0.1) 07/08/20 04:30 Absolute Nucleated RBC 0.0 /100WBC 07/08/20 04:30 Total Counted 100 07/08/20 04:30 Neutrophils % (Manual) 97 % (39-76) H 07/08/20 04:30 Band Neutrophils % 2 % (0-10) 07/06/20 04:21 Lymphocytes % (Manual) 3 % (13-43) L 07/08/20 04:30 Monocytes % (Manual) 4 % (4-9) 07/06/20 04:21 Plt Morphology Comment Normal (NORMAL) 07/08/20 04:30 RBC Morphology Normal (NORMAL) 07/08/20 04:30 PT 14.3 SECONDS (11.8-14.3) 07/02/20 20:38 INR Target Range - 07/02/20 20:38 INR 1.14 (0.8-1.3) 07/02/20 20:38 APTT 42.0 SECONDS (22.9-36.5) H 07/02/20 20:38 PTT Comment - 07/02/20 20:38 D-Dimer 1.50 ug/ml (0.0-0.57) H* 07/02/20 20:38 Sample Site Right brachial 07/07/20 10:25 ABG pH 7.450 (7.35-7.45) 07/07/20 10:25 ABG pCO2 38.0 mmHg (35.0-45.0) 07/07/20 10:25 ABG pO2 66.0 mmHg (80.0-100.0) L 07/07/20 10:25 ABG HCO3 26.4 mmol/L (22-26) H 07/07/20 10:25 ABG O2 Saturation 94.0 % (90-100) 07/07/20 10:25 ABG Base Excess 2.4 mmol/L (-2.0-2.0) H 07/07/20 10:25 Cipriano Test Na 07/07/20 10:25 A-a Gradient 600.0 mmHg 07/07/20 10:25 FiO2 100.0 07/07/20 10:25 Blood Gas Comments Ez well aw 07/07/20 10:25 Sodium 139 mmol/L (136-145) 07/08/20 04:30 Corrected Sodium 142 mmol/L (136-145) 07/08/20 04:30 Potassium 4.4 mmol/L (3.5-5.1) 07/08/20 04:30 Chloride 104 mmol/L (98-107) 07/08/20 04:30 Carbon Dioxide 26.3 mmol/L (21-32) 07/08/20 04:30 BUN 29 mg/dL (7-18) H 07/08/20 04:30 Creatinine 0.93 mg/dL (0.70-1.30) 07/08/20 04:30 Est GFR (MDRD) Af Amer > 60 (>60) 07/08/20 04:30 Est GFR (MDRD) Non-Af > 60 (>60) 07/08/20 04:30 Glucose 205 mg/dL (65-99) H 07/08/20 04:30 POC Glucose (mg/dL) 156 mg/dL (65-99) H 07/08/20 17:09 Calcium 9.1 mg/dL (8.5-10.1) 07/08/20 04:30 Corrected Calcium 10.4 mg/dL (8.5-10.1) H 07/08/20 04:30 Magnesium 1.7 mg/dL (1.7-2.9) 07/02/20 20:38 Ferritin 478 ng/mL (26-388) H 07/06/20 04:21 Total Bilirubin 0.70 mg/dL (0.2-1.0) 07/08/20 04:30 AST 37 Units/L (15-37) 07/08/20 04:30 ALT 82 Units/L (12-78) H 07/08/20 04:30 Alkaline Phosphatase 76 Units/L (46-116) 07/08/20 04:30 Creatine Kinase 46 Units/L (39-308) 07/04/20 23:33 CK-MB (CK-2) < 1.0 ng/mL (0-4.0) 07/04/20 23:33 CK/CKMB % Calc 2.2 % (<4) 07/04/20 23:33 Troponin I < 0.02 ng/mL (0-1.5) 07/04/20 23:33 C-Reactive Protein 38.70 mg/L (0-3.0) H 07/08/20 04:30 B-Natriuretic Peptide 162 pg/mL (0-79) H 07/02/20 20:38 Total Protein 6.7 g/dL (6.4-8.2) 07/08/20 04:30 Albumin 2.4 g/dL (3.4-5.0) L 07/08/20 04:30 Globulin 4.3 g/dL (2.5-4.5) 07/08/20 04:30 Albumin/Globulin Ratio 0.6 Ratio (1.1-2.1) L 07/08/20 04:30 Blood Type A POSITIVE 07/03/20 10:01 - Plan (1) Pneumonia due to COVID-19 virus Status: Acute Plan: 1/2NS AT 75 ML/HR, REMDESIVIR 100MG IV DAILY, LEVAQUIN 500MG IV DAILY, LOVENOX 30MG SC BID, DUONEBS TID, PULMICORT NEBS BID, ROBITUSSIN DM 10 ML PO QID, SOLU-MEDROL 80MG IV Q8H, PEPCID 20MG PO BID, PROTONIX 40MG PO DAILY, ATIVAN 0.5MG PO BID, AND HIS HOME MEDICATIONS WERE RESUMED. (2) Hypoxia Status: Acute (3) HTN (hypertension) Status: Chronic Qualifiers: Hypertension type: essential hypertension Qualified Code(s): I10 - Essential (primary) hypertension (4) Hyperlipidemia Status: Chronic Qualifiers: Hyperlipidemia type: mixed hyperlipidemia Qualified Code(s): E78.2 - Mixed hyperlipidemia (5) Diabetes mellitus Status: Chronic Qualifiers: Diabetes mellitus type: type 2 Diabetes mellitus complication status: without complication
[2020-07-09] MEDS ORDERED: GLUCOPHAGE ONE ×2 (04:56→16:10)
[2020-07-09 05:19] LABS: ABG ALLEN TEST POS; ABG BASE EXCESS 4.1 mmol/L (-2.0-2.0); ABG HCO3 29.2 mmol/L (22-26)
[2020-07-09] MEDS: DUONEB 0.5 MG/3 MG (3 mL) NEB SCH ×3 (05:20→21:50)
--- NOTE | 2020-07-09 06:09 | RAD ---
HISTORYHYPOXIASTUDYCHEST, 1 [id number] trachea is midline. The cardiac silhouette is stable. Patchy multifocal bilateral pulmonary opacities minimally improved from prior study. No pneumothorax.. The bony thorax is unremarkable.IMPRESSIONPatchy multifocal bilateral pulmonary opacities minimally improved from previous 07/08/2020Electronically signed by: Maikel Bro (Jul 09, 2020 06:07:37)
[2020-07-09 06:14] LABS: BASOPHILS % (AUTO) 0.1 % (0.2-1.0); EOSINOPHILS # (AUTO) 0.1 x10^3/uL (0.0-0.2); EOSINOPHILS % (AUTO) 0.4 % (0.9-2.9); HEMATOCRIT 37.5 % (42.0-54.0); HEMOGLOBIN 12.8 g/dL (13.5-18.0); LYMPHOCYTES # (AUTO) 0.3 X10^3/uL (1.3-2.9); LYMPHOCYTES % (AUTO) 2.3 % (21.0-51.0); MEAN CORPUSCULAR HEMOGLOBIN 31.4 pg (27.0-34.0); MEAN CORPUSCULAR HGB CONC 34.1 g/dL (33.0-35.0); MEAN PLATELET VOLUME 9.5 fL (7.4-11.0); MONOCYTES # (AUTO) 0.1 x10^3/uL (0.3-0.8); MONOCYTES % (AUTO) 0.5 % (0.0-13.0); NEUTROPHILS # (AUTO) 13.6 x10^3/uL (2.2-4.8); NEUTROPHILS % (AUTO) 96.7 % (42.0-75.0); PLATELET COUNT 182 X10^3/uL (150.0-450.0); RED BLOOD COUNT 4.07 X10^6/uL (4.7-6.0); RED CELL DISTRIBUTION WIDTH 12.7 % (11.6-16.5)
[2020-07-09] MEDS: SUBOXONE TAB SL SCH ×4 (06:25→21:00)
[2020-07-09] MEDS: GLUCOPHAGE PO SCH ×2 (06:26→16:23)
[2020-07-09] MEDS: TESSALON PERLES PO SCH ×3 (06:27→21:00)
[2020-07-09] MEDS: SOLU-Medrol 125 MG VIAL IVP SCH ×3 (06:27→21:00)
[2020-07-09] MEDS: ZOSYN VIAL 3.375 GRAMS 3.375 G in NS 100 ML IV + SPIKE MINIBAG* 100 ML IV SCH ×4 (06:27→22:00)
[2020-07-09 06:31] LABS: BLOOD UREA NITROGEN 33 mg/dL (7-18); CALCIUM 8.8 mg/dL (8.5-10.1); CHLORIDE 104 mmol/L (98-107); COR NA(FOR HYPERGLY) 142 mmol/L (136-145); CREATININE 0.87 mg/dL (0.70-1.30); SODIUM 139 mmol/L (136-145); eGFR NON BLACK RACES > 60 (>60)
[2020-07-09 07:55] LABS: PLATELET MORPHOLOGY COMMENT NORMAL (NORMAL)
[2020-07-09] MEDS: JANUVIA PO SCH (09:17)
[2020-07-09] MEDS: LEVAQUIN PREMIX IV 750 MG 750 MG/150 ML BAG IV SCH (09:17)
[2020-07-09] MEDS: LOVENOX INJ 30 MG SYR SC SCH ×2 (09:17→21:02)
[2020-07-09] MEDS: PEPCID TAB 20 MG PO SCH ×2 (09:18→21:00)
[2020-07-09] MEDS: PROTONIX TAB 40 MG PO SCH (09:19)
[2020-07-09] MEDS: ROBITUSSIN DM PO SCH ×4 (09:19→21:00)
[2020-07-09] MEDS: TRICOR TAB 145 MG PO SCH (09:20)
[2020-07-09] MEDS: ZOCOR TAB 40 MG PO SCH (09:21)
[2020-07-09] MEDS: PULMICORT NEB TX 0.5 MG NEB SCH ×2 (10:29→21:50)
[2020-07-09] MEDS: LOTENSIN TAB 10 MG PO SCH (10:50)
[2020-07-09] MEDS: COREG TAB 6.25 MG PO SCH (10:52)
--- NOTE | 2020-07-09 11:58 | PCM.PROG ---
Progress Note - Progress Note for Day of Date of Exam: 07/09/20 - Subjective Subjective: IS BEING TREATED FOR PNEUMONIA DUE TO COVID-19 AND HYPOXIA. TODAY, HE IS ALERT AND ORIENTED, LYING IN BED ON MORNING ROUNDS. HE CONTINUES WITH COMPLAINTS OF COUGH, SHORTNESS OF BREATH, AND GENERALIZED WEAKNESS. COUGH IS NON-PRODUCTIVE. HE IS CURRENTLY UTILIZING OXYGEN VIA NON-MAURA REATHER. HE WAS ON THE BIPAP OVER THE WEEKEND, BUT WAS SWAPPED BACK OVER THROUGHOUT THE NIGHT. HIS OXYGEN SATURATIONS HAVE BEEN 88-93% ON THE NON- REBREATHER THIS MORNING. HE DOES REPORT SLIGHT IMPROVEMENT IN SYMPTOMS THIS MORNING. ON EXAMINATION, HEART IS REGULAR IN RATE AND RHYTHM. BILATERAL LUNGS ARE NOTED WITH SCATTERED WHEEZING THROUGHOUT. ABDOMEN IS ROUND, SOFT, AND NON- TENDER WITH NORMAL BOWEL SOUNDS NOTED IN ALL QUADRANTS. HIS VITALS THIS MORNING ARE: 98.2-54-18-92%-114/57. LABS WERE OBTAINED. ABNORMAL LAB VALUES INCLUDE THE FOLLOWING: WBC 14.0, RBC 4.07, HGB 12.8, HCT 37.5, BUN 33, GLUCOSE 220, CRP 33.90. AN ABG WAS REPEATED TODAY AND REVEALED: PH 7.420, PC02 45, P02 93, HC03 29.2, 02 SAT 97, FI02 100. BLOOD CULTURES ARE PENDING. CHEST XRAY REVEALED: Patchy multifocal bilateral pulmonary opacities minimally improved from previous 07/08/2020. HE IS CURRENTLY RECEIVING: LEVAQUIN 750MG IV DAILY, ZOSYN 3.375G IV TID, LOVENOX 30MG SC BID, DUONEBS TID, PULMICORT NEBS BID, ROBITUSSIN DM 10 ML PO QID, TUSSIONEX 5ML PO Q12H PRN, SOLU-MEDROL 80MG IV Q8H, PEPCID 20MG PO BID, PROTONIX 40MG PO DAILY, CLONAZEPAM 0.5MG PO TID PRN, AND HIS HOME MEDICATIONS WERE RESUMED. HE HAS RECEIVED ONE UNIT OF CONVALESCENT PLASMA SINCE ADMISSION. WE WILL CONTINUE WITH CURRENT PLAN OF CARE TODAY AND ADD MUCOMYST TO HIS NEB TX. OTHERWISE, WE WILL FOLLOW UP WITH AM LABS AND CONTINUE TO MONITOR. TIME SPENT ON CLINICAL ASSESSMENT, REVIEWING LABS AND IMAGING, DECISION MAKING, AND DOCUMENTATION GREATER THAN 45 MINUTES. - Past Medical Family Social History Past Med/Fam/Surg Hx: No changes since H&P Allergies: Allergies No Known Drug Allergies Allergy (Verified 07/02/20 17:24) - Review of Systems ROS: No change since H&P - Vital Signs and I&O's Vital Signs: Temperature 98.2 F Pulse Rate [Left Brachial] 87 Pulse Rate 82 Respiratory Rate 18 Blood Pressure [Left Arm] 133/74 Blood Pressure 137/72 O2 Sat by Pulse Oximetry 93 Intake and Output: Intake & Output 07/06/20 07/07/20 07/08/20 07/09/20 11:59 11:59 11:59 11:59 Intake Total 2315 / 2315 3838 / 3838 1690 / 1690 1736 / 1736 Output Total 1275 / 1275 1750 / 1750 1200 / 1200 1381 / 1381 Balance 1040 / 1040 2088 / 2088 490 / 490 355 / 355 - Physical Exam Oriented: Normal Eyes: Normal Ear: Normal Nose: Normal Throat: Normal Respiratory: Generalized, Diminished, Wheezes Cardiovascular: Normal : Normal Auscultation: Bowel Sounds: Normal Palpation: Normal Tenderness: Normal Skin: Normal Musculoskeletal: Normal Psychiatric: Normal Mood Description: Calm Affect: Normal Speech Pattern: Clear, Appropriate - Laboratory and Diagnostics Result Diagrams: 07/09/20 05:05 07/09/20 05:05 Labs: 07/02/20 22:22 Blood Blood Culture - Final 07/02/20 20:38 Blood Blood Culture - Final Laboratory WBC 14.0 X10^3/uL (3.6-10.0) H 07/09/20 05:05 RBC 4.07 X10^6/uL (4.7-6.0) L 07/09/20 05:05 Hgb 12.8 g/dL (13.5-18.0) L 07/09/20 05:05 Hct 37.5 % (42.0-54.0) L 07/09/20 05:05 MCV 92.0 fL (80.0-100.0) 07/09/20 05:05 MCH 31.4 pg (27.0-34.0) 07/09/20 05:05 MCHC 34.1 g/dL (33.0-35.0) 07/09/20 05:05 RDW 12.7 % (11.6-16.5) 07/09/20 05:05 Plt Count 182 X10^3/uL (150.0-450.0) 07/09/20 05:05 Plt Count Comment Adequate (ADEQUATE) 07/09/20 05:05 MPV 9.5 fL (7.4-11.0) 07/09/20 05:05 Neut % (Auto) 96.7 % (42.0-75.0) H 07/09/20 05:05 Lymph % (Auto) 2.3 % (21.0-51.0) L 07/09/20 05:05 [place] % (Auto) 0.5 % (0.0-13.0) 07/09/20 05:05 Eos % (Auto) 0.4 % (0.9-2.9) L 07/09/20 05:05 Baso % (Auto) 0.1 % (0.2-1.0) L 07/09/20 05:05 Neut # (Auto) 13.6 x10^3/uL (2.2-4.8) H 07/09/20 05:05 Lymph # (Auto) 0.3 X10^3/uL (1.3-2.9) L 07/09/20 05:05 [place] # (Auto) 0.1 x10^3/uL (0.3-0.8) L 07/09/20 05:05 Eos # (Auto) 0.1 x10^3/uL (0.0-0.2) 07/09/20 05:05 Baso # (Auto) 0.0 X10^3/uL (0.0-0.1) 07/09/20 05:05 Absolute Nucleated RBC 0.0 /100WBC 07/09/20 05:05 Total Counted 100 07/09/20 05:05 Neutrophils % (Manual) 96 % (39-76) H 07/09/20 05:05 Band Neutrophils % 2 % (0-10) 07/06/20 04:21 Lymphocytes % (Manual) 2 % (13-43) L 07/09/20 05:05 Monocytes % (Manual) 2 % (4-9) L 07/09/20 05:05 Plt Morphology Comment Normal (NORMAL) 07/09/20 05:05 RBC Morphology Normal (NORMAL) 07/09/20 05:05 PT 14.3 SECONDS (11.8-14.3) 07/02/20 20:38 INR Target Range - 07/02/20 20:38 INR 1.14 (0.8-1.3) 07/02/20 20:38 APTT 42.0 SECONDS (22.9-36.5) H 07/02/20 20:38 PTT Comment - 07/02/20 20:38 D-Dimer 1.50 ug/ml (0.0-0.57) H* 07/02/20 20:38 Sample Site Rrad 07/09/20 05:17 ABG pH 7.420 (7.35-7.45) 07/09/20 05:17 ABG pCO2 45.0 mmHg (35.0-45.0) 07/09/20 05:17 ABG pO2 93.0 mmHg (80.0-100.0) 07/09/20 05:17 ABG HCO3 29.2 mmol/L (22-26) H 07/09/20 05:17 ABG O2 Saturation 97.0 % (90-100) 07/09/20 05:17 ABG Base Excess 4.1 mmol/L (-2.0-2.0) H 07/09/20 05:17 Cipriano Test Pos 07/09/20 05:17 A-a Gradient 564.0 mmHg 07/09/20 05:17 FiO2 100.0 07/09/20 05:17 Blood Gas Comments Ez abg well-mtf 07/09/20 05:17 Sodium 139 mmol/L (136-145) 07/09/20 05:05 Corrected Sodium 142 mmol/L (136-145) 07/09/20 05:05 Potassium 4.4 mmol/L (3.5-5.1) 07/09/20 05:05 Chloride 104 mmol/L (98-107) 07/09/20 05:05 Carbon Dioxide 27.0 mmol/L (21-32) 07/09/20 05:05 BUN 33 mg/dL (7-18) H 07/09/20 05:05 Creatinine 0.87 mg/dL (0.70-1.30) 07/09/20 05:05 Est GFR (MDRD) Af Amer > 60 (>60) 07/09/20 05:05 Est GFR (MDRD) Non-Af > 60 (>60) 07/09/20 05:05 Glucose 220 mg/dL (65-99) H 07/09/20 05:05 POC Glucose (mg/dL) 202 mg/dL (65-99) H 07/09/20 07:02 Calcium 8.8 mg/dL (8.5-10.1) 07/09/20 05:05 Corrected Calcium 10.4 mg/dL (8.5-10.1) H 07/08/20 04:30 Magnesium 1.7 mg/dL (1.7-2.9) 07/02/20 20:38 Ferritin 322 ng/mL (26-388) 07/09/20 05:05 Total Bilirubin 0.70 mg/dL (0.2-1.0) 07/08/20 04:30 AST 37 Units/L (15-37) 07/08/20 04:30 ALT 82 Units/L (12-78) H 07/08/20 04:30 Alkaline Phosphatase 76 Units/L (46-116) 07/08/20 04:30 Creatine Kinase 46 Units/L (39-308) 07/04/20 23:33 CK-MB (CK-2) < 1.0 ng/mL (0-4.0) 07/04/20 23:33 CK/CKMB % Calc 2.2 % (<4) 07/04/20 23:33 Troponin I < 0.02 ng/mL (0-1.5) 07/04/20 23:33 C-Reactive Protein 33.90 mg/L (0-3.0) H 07/09/20 05:05 B-Natriuretic Peptide 162 pg/mL (0-79) H 07/02/20 20:38 Total Protein 6.7 g/dL (6.4-8.2) 07/08/20 04:30 Albumin 2.4 g/dL (3.4-5.0) L 07/08/20 04:30 Globulin 4.3 g/dL (2.5-4.5) 07/08/20 04:30 Albumin/Globulin Ratio 0.6 Ratio (1.1-2.1) L 07/08/20 04:30 Blood Type A POSITIVE 07/03/20 10:01 - Plan (1) Pneumonia due to COVID-19 virus Status: Acute Plan: 1/2NS AT 75 ML/HR, LEVAQUIN 750MG IV DAILY, ZOSYN 3.375G IV TID, LOVENOX 30MG SC BID, DUONEBS TID, PULMICORT NEBS BID, MUCOMYST IN NEB [place], ROBITUSSIN DM 10 ML PO QID, SOLU-MEDROL 80MG IV Q8H, PEPCID 20MG PO BID, PROTONIX 40MG PO DAILY, ATIVAN 0.5MG PO BID, AND HIS HOME MEDICATIONS WERE RESUMED. (2) Hypoxia Status: Acute (3) HTN (hypertension) Status: Chronic Qualifiers: Hypertension type: essential hypertension Qualified Code(s): I10 - Essential (primary) hypertension (4) Hyperlipidemia Status: Chronic Qualifiers: Hyperlipidemia type: mixed hyperlipidemia Qualified Code(s): E78.2 - Mixed hyperlipidemia (5) Diabetes mellitus Status: Chronic Qualifiers: Diabetes mellitus type: type 2 Diabetes mellitus complication status: without complication
--- NOTE | 2020-07-09 12:11 | RAD ---
HISTORYCENTRAL LINE PLACEMENTSTUDYCHEST, 1 VIEWCOMPARISONSame day chest radiographTECHNIQUEAP view of the chestFINDINGSCardiac and mediastinal contours are within normal limits. Right IJ central line in good position. Multifocal bilateral airspace disease appears similar. No pleural effusion or pneumothorax.IMPRESSIONRight IJ central line in good position. Airspace disease appears similar.Electronically signed by: Reggie Keita (Jul 09, 2020 12:09:28)
--- NOTE | 2020-07-09 13:58 | DR.H&P ---
H&P - Past Medical History Past Medical History: Hypertension, Dyslipidemia, Diabetes - Past Surgical History Additional Surgical History: HERNIA REPAIR - Social History Does patient currently use any type of tobacco product: No Have you used tobacco products in the last 12 months: No Type of Tobacco Use: None Does any household member use tobacco: No Alcohol Use: None Drug Use: None - Medications Home Medications: No Known Drug Allergies Allergy (Verified 07/02/20 17:24) CONTINUE taking the following medications benazepril 40 mg PO DAILY 07/03/20 [History] carvedilol 6.25 mg PO DAILY 07/03/20 [History] fenofibrate micronized 134 mg PO DAILY 07/03/20 [History] lisdexamfetamine [Vyvanse] 30 mg PO DAILY 07/03/20 [History] simvastatin 40 mg PO DAILY 07/03/20 [History] sitagliptin-metformin [Janumet XR] 1 tab PO DAILY 07/03/20 [History] New Prescriptions buprenorphine-naloxone [Suboxone] 1 film SUBLINGUAL TID 30 Days #90 ea MDD 3 07/03/20 [Rx] - Physical Exam Vital Signs: Temperature 98.2 F Pulse Rate [Left Brachial] 87 Pulse Rate 82 Respiratory Rate 18 Blood Pressure [Left Arm] 133/74 Blood Pressure 137/72 O2 Sat by Pulse Oximetry 93 Oriented: Normal - Allergies Allergies/Adverse Reactions: Allergies Allergy/AdvReac Type Severity Reaction Status Date / Time No Known Drug Allergies Allergy Verified 07/02/20 17:24 Procedures (ALL) - Central Line Placement PCM.CLCO: written consent Time out performed: Yes Patient placed pm monitor/pulse ox: Yes MD prep: mask, gown, gloves, other Centrial line prep: chlorhexidine scrub, sterile drapes applied Local anesthsia used: lidocane 1% Ultrasound used for placement: Yes (rij visualized) Central line lumen ininserted: triple Post procedure: sutured in place, good blood return, all ports aspirated, flushed,capped, sterile dressing applied Post procedure xray: tip oc catheter in good position, no pneumothorax seen Complications: none (rij c-line placed via u/s; placement verified via pcxr)
[2020-07-09] MEDS: MUCOMYST 20% 200 MG/ML NEB SCH ×2 (14:06→21:50)
[2020-07-10 05:33] LABS: BASOPHILS % (AUTO) 0 % (0.2-1.0); HEMATOCRIT 35.8 % (42.0-54.0); HEMOGLOBIN 11.8 g/dL (13.5-18.0); LYMPHOCYTES # (AUTO) 0.2 X10^3/uL (1.3-2.9); LYMPHOCYTES % (AUTO) 1.7 % (21.0-51.0); MEAN CORPUSCULAR HEMOGLOBIN 30.8 pg (27.0-34.0); MEAN CORPUSCULAR HGB CONC 33.1 g/dL (33.0-35.0); MEAN CORPUSCULAR VOLUME 93.3 fL (80.0-100.0); MEAN PLATELET VOLUME 9.4 fL (7.4-11.0); MONOCYTES # (AUTO) 0.6 x10^3/uL (0.3-0.8); NEUTROPHILS # (AUTO) 13.1 x10^3/uL (2.2-4.8); NEUTROPHILS % (AUTO) 94.3 % (42.0-75.0); PLATELET COUNT 188 X10^3/uL (150.0-450.0); RED BLOOD COUNT 3.84 X10^6/uL (4.7-6.0); RED CELL DISTRIBUTION WIDTH 12.8 % (11.6-16.5); WHITE BLOOD COUNT 13.9 X10^3/uL (3.6-10.0)
[2020-07-10 05:52] LABS: ALANINE AMINOTRANSFERASE 47 Units/L (12-78); ALBUMIN 2.2 g/dL (3.4-5.0); ALKALINE PHOSPHATASE 57 Units/L (46-116); ASPARTATE AMINO TRANSFERASE 26 Units/L (15-37); BLOOD UREA NITROGEN 33 mg/dL (7-18); CALCIUM 8.8 mg/dL (8.5-10.1); CARBON DIOXIDE 25.7 mmol/L (21-32); CHLORIDE 106 mmol/L (98-107); COR NA(FOR HYPERGLY) 144 mmol/L (136-145); CREATININE 1.04 mg/dL (0.70-1.30); SODIUM 140 mmol/L (136-145); TOTAL PROTEIN 6.1 g/dL (6.4-8.2); eGFR NON BLACK RACES > 60 (>60)
[2020-07-10 05:53] LABS: COR CA(FOR HYPOALB) 10.2 mg/dL (8.5-10.1)
[2020-07-10] MEDS ORDERED: GLUCOPHAGE ONE ×2 (06:01→17:22)
[2020-07-10] MEDS: SOLU-Medrol 125 MG VIAL IVP SCH ×3 (06:39→21:28)
[2020-07-10] MEDS: SUBOXONE TAB SL SCH ×3 (06:39→21:28)
[2020-07-10] MEDS: TESSALON PERLES PO SCH ×3 (06:39→21:28)
[2020-07-10] MEDS: ZOSYN VIAL 3.375 GRAMS 3.375 G in NS 100 ML IV + SPIKE MINIBAG* 100 ML IV SCH ×3 (06:40→21:28)
[2020-07-10] MEDS: GLUCOPHAGE PO SCH ×2 (06:40→17:00)
--- NOTE | 2020-07-10 06:40 | RAD ---
HISTORYSOBSTUDYCHEST, 1 [id number]/28/2020FINDINGSThe trachea is midline. Right IJ central line in distal SVC. The cardiac silhouette is unremarkable. Multifocal bilateral airspace disease unchanged. No pleural effusion or pneumothorax.. The bony thorax is unremarkable.IMPRESSIONStable portable chestElectronically signed by: Maikel Bro (Jul 10, 2020 06:39:09)
[2020-07-10 06:50] LABS: ABG BASE EXCESS 5.5 mmol/L (-2.0-2.0); ABG HCO3 29.9 mmol/L (22-26)
[2020-07-10 06:51] LABS: ABG ALLEN TEST POS
[2020-07-10] MEDS: DUONEB 0.5 MG/3 MG (3 mL) NEB SCH ×4 (06:51→21:00)
[2020-07-10 07:17] LABS: PLATELET MORPHOLOGY COMMENT NORMAL (NORMAL)
[2020-07-10] MEDS: LEVAQUIN PREMIX IV 750 MG 750 MG/150 ML BAG IV SCH (09:02)
[2020-07-10] MEDS: LOTENSIN TAB 10 MG PO SCH (09:02)
[2020-07-10] MEDS: JANUVIA PO SCH (09:02)
[2020-07-10] MEDS: PEPCID TAB 20 MG PO SCH ×2 (09:05→21:27)
[2020-07-10] MEDS: ZOCOR TAB 40 MG PO SCH (09:05)
[2020-07-10] MEDS: LOVENOX INJ 30 MG SYR SC SCH (09:06)
[2020-07-10] MEDS: PROTONIX TAB 40 MG PO SCH (09:07)
[2020-07-10] MEDS: COREG TAB 6.25 MG PO SCH (09:08)
[2020-07-10] MEDS: ROBITUSSIN DM PO SCH ×4 (09:08→21:27)
[2020-07-10] MEDS: TRICOR TAB 145 MG PO SCH (09:08)
[2020-07-10] MEDS: MUCOMYST 20% 200 MG/ML NEB SCH ×2 (09:23→21:00)
[2020-07-10] MEDS: PULMICORT NEB TX 0.5 MG NEB SCH ×2 (09:23→21:00)
[2020-07-10] MEDS: ALBUMIN HUMAN 25%- 100 ML 100 ML IV SCH (11:30)
--- NOTE | 2020-07-10 12:08 | PCM.PROG ---
Progress Note - Progress Note for Day of Date of Exam: 07/10/20 - Subjective Subjective: IS BEING TREATED FOR PNEUMONIA DUE TO COVID-19 AND HYPOXIA. TODAY, HE IS ALERT AND ORIENTED, LYING IN BED ON MORNING ROUNDS. HE CONTINUES WITH COMPLAINTS OF COUGH, SHORTNESS OF BREATH, AND GENERALIZED WEAKNESS. COUGH IS NON-PRODUCTIVE. HE IS CURRENTLY UTILIZING OXYGEN VIA NON-MAURA REATHER. HE HAD BEEN UTILIZING THE BIPAP, HOWEVER, HE STATES I CANT HANDING THAT BIPAP ANYMORE. THE PRESSURE IS TOO MUCH. WE EXPLAINED TO PATIENT THE DIFFERENCE IN OXYGEN AND PRESSURE THAT THE DIFFERENT MODALITIES DELIVER. PATIENT VERBALIZE UNDERSTANDING AND WISHES TO CONTINUE WITH THE NON-REBREATHER AT THIS TIME. HIS OXYGEN SATURATIONS HAVE BEEN 85-93% ON THE NON-REBREATHER THIS MORNING. A CENTRAL LINE WAS PLACED YESTERDAY DUE TO POOR VENOUS ACCESS. HE DENIES SIGNIFICANT IMPROVEMENT IN SYMPTOMS SINCE YESTERDAY. ON EXAMINATION, HEART IS REGULAR IN RATE AND RHYTHM. BILATERAL LUNGS ARE NOTED WITH SCATTERED WHEEZING THROUGHOUT. ABDOMEN IS ROUND, SOFT, AND NON-TENDER WITH NORMAL BOWEL SOUNDS NOTED IN ALL QUADRANTS. HIS VITALS THIS MORNING ARE: 97.3-75-17-88%-138/72. LABS WERE OBTAINED. ABNORMAL LAB VALUES INCLUDE THE FOLLOWING: WBC 13.9, RBC 3.84, HGB 11.8, HCT 35.8, BUN 33, GLUCOSE 260, CRP 15.90, TOTAL PROTEIN 6.1, ALBUMIN 2.2. AN ABG WAS REPEATED TODAY AND REVEALED: PH 7.460, PC02 40, P02 57, HC03 29.9, 02 SAT 91, FI02 100. BLOOD CULTURES ARE PENDING. CHEST XRAY REVEALED: The trachea is midline. Right IJ central line in distal SVC. The cardiac silhouette is unremarkable. Multifocal bilateral airspace disease unchanged. No pleural effusion or pneumothorax. The bony thorax is unremarkable. HE IS CURRENTLY RECEIVING: LEVAQUIN 750MG IV DAILY, ZOSYN 3.375G IV TID, LOVENOX 30MG SC BID, DUONEBS TID, PULMICORT NEBS BID, MUCOMYST IN NEB [place], ROBITUSSIN DM 10 ML PO QID, TUSSIONEX 5ML PO Q12H PRN, SOLU-MEDROL 80MG IV Q8H, PEPCID 20MG PO BID, PROTONIX 40MG PO DAILY, CLONAZEPAM 0.5MG PO TID PRN, AND HIS HOME MEDICATIONS WERE RESUMED. HE HAS RECEIVED ONE UNIT OF CONVALESCENT PLASMA SINCE ADMISSION. WE WILL CONTINUE WITH CURRENT PLAN OF CARE TODAY AND ADD PROCALAMINE AND ALBUMIN DAILY. OTHERWISE, WE WILL FOLLOW UP WITH AM LABS AND CONTINUE TO MONITOR. TIME SPENT ON CLINICAL ASSESSMENT, REVIEWING LABS AND IMAGING, DECISION MAKING, AND DOCUMENTATION GREATER THAN 75 MINUTES. - Past Medical Family Social History Past Med/Fam/Surg Hx: No changes since H&P Allergies: Allergies No Known Drug Allergies Allergy (Verified 07/02/20 17:24) - Review of Systems ROS: No change since H&P - Vital Signs and I&O's Vital Signs: Temperature 97.3 F Pulse Rate [Left Brachial] 87 Pulse Rate 68 Respiratory Rate 18 Blood Pressure [Left Arm] 133/74 Blood Pressure 126/63 O2 Sat by Pulse Oximetry 94 Intake and Output: Intake & Output 07/08/20 07/09/20 07/10/20 07/11/20 11:59 11:59 11:59 11:59 Intake Total 1690 / 1690 1736 / 1736 2734 / 2734 Output Total 1200 / 1200 1381 / 1381 1850 / 1850 Balance 490 / 490 355 / 355 884 / 884 - Physical Exam Oriented: Normal Eyes: Normal Ear: Normal Nose: Normal Throat: Normal Respiratory: Generalized, Diminished, Wheezes Cardiovascular: Normal : Normal Auscultation: Bowel Sounds: Normal Tenderness: Normal Skin: Normal Musculoskeletal: Normal Psychiatric: Normal Mood Description: Calm Affect: Normal Speech Pattern: Clear, Appropriate - Laboratory and Diagnostics Result Diagrams: 07/10/20 04:45 07/10/20 04:45 Labs: 07/02/20 22:22 Blood Blood Culture - Final 07/02/20 20:38 Blood Blood Culture - Final Laboratory WBC 13.9 X10^3/uL (3.6-10.0) H 07/10/20 04:45 RBC 3.84 X10^6/uL (4.7-6.0) L 07/10/20 04:45 Hgb 11.8 g/dL (13.5-18.0) L 07/10/20 04:45 Hct 35.8 % (42.0-54.0) L 07/10/20 04:45 MCV 93.3 fL (80.0-100.0) 07/10/20 04:45 MCH 30.8 pg (27.0-34.0) 07/10/20 04:45 MCHC 33.1 g/dL (33.0-35.0) 07/10/20 04:45 RDW 12.8 % (11.6-16.5) 07/10/20 04:45 Plt Count 188 X10^3/uL (150.0-450.0) 07/10/20 04:45 Plt Count Comment Adequate (ADEQUATE) 07/10/20 04:45 MPV 9.4 fL (7.4-11.0) 07/10/20 04:45 Neut % (Auto) 94.3 % (42.0-75.0) H 07/10/20 04:45 Lymph % (Auto) 1.7 % (21.0-51.0) L 07/10/20 04:45 [place] % (Auto) 4.0 % (0.0-13.0) 07/10/20 04:45 Eos % (Auto) 0.0 % (0.9-2.9) L 07/10/20 04:45 Baso % (Auto) 0 % (0.2-1.0) L 07/10/20 04:45 Neut # (Auto) 13.1 x10^3/uL (2.2-4.8) H 07/10/20 04:45 Lymph # (Auto) 0.2 X10^3/uL (1.3-2.9) L 07/10/20 04:45 [place] # (Auto) 0.6 x10^3/uL (0.3-0.8) 07/10/20 04:45 Eos # (Auto) 0.0 x10^3/uL (0.0-0.2) 07/10/20 04:45 Baso # (Auto) 0.0 X10^3/uL (0.0-0.1) 07/10/20 04:45 Absolute Nucleated RBC 0.0 /100WBC 07/10/20 04:45 Total Counted 100 07/10/20 04:45 Neutrophils % (Manual) 95 % (39-76) H 07/10/20 04:45 Band Neutrophils % 2 % (0-10) 07/06/20 04:21 Lymphocytes % (Manual) 2 % (13-43) L 07/10/20 04:45 Monocytes % (Manual) 3 % (4-9) L 07/10/20 04:45 Plt Morphology Comment Normal (NORMAL) 07/10/20 04:45 RBC Morphology Normal (NORMAL) 07/10/20 04:45 PT 14.3 SECONDS (11.8-14.3) 07/02/20 20:38 INR Target Range - 07/02/20 20:38 INR 1.14 (0.8-1.3) 07/02/20 20:38 APTT 42.0 SECONDS (22.9-36.5) H 07/02/20 20:38 PTT Comment - 07/02/20 20:38 D-Dimer 1.50 ug/ml (0.0-0.57) H* 07/02/20 20:38 Sample Site Rrad 07/10/20 06:50 ABG pH 7.460 (7.35-7.45) H 07/10/20 06:50 ABG pCO2 42.0 mmHg (35.0-45.0) 07/10/20 06:50 ABG pO2 57.0 mmHg (80.0-100.0) L 07/10/20 06:50 ABG HCO3 29.9 mmol/L (22-26) H 07/10/20 06:50 ABG O2 Saturation 91.0 % (90-100) 07/10/20 06:50 ABG Base Excess 5.5 mmol/L (-2.0-2.0) H 07/10/20 06:50 Cipriano Test Pos 07/10/20 06:50 A-a Gradient 604.0 mmHg 07/10/20 06:50 FiO2 100.0 07/10/20 06:50 Blood Gas Comments Ez abg well-mtf 07/10/20 06:50 Sodium 140 mmol/L (136-145) 07/10/20 04:45 Corrected Sodium 144 mmol/L (136-145) 07/10/20 04:45 Potassium 4.4 mmol/L (3.5-5.1) 07/10/20 04:45 Chloride 106 mmol/L (98-107) 07/10/20 04:45 Carbon Dioxide 25.7 mmol/L (21-32) 07/10/20 04:45 BUN 33 mg/dL (7-18) H 07/10/20 04:45 Creatinine 1.04 mg/dL (0.70-1.30) 07/10/20 04:45 Est GFR (MDRD) Af Amer > 60 (>60) 07/10/20 04:45 Est GFR (MDRD) Non-Af > 60 (>60) 07/10/20 04:45 Glucose 260 mg/dL (65-99) H 07/10/20 04:45 POC Glucose (mg/dL) 215 mg/dL (65-99) H 07/10/20 11:59 Calcium 8.8 mg/dL (8.5-10.1) 07/10/20 04:45 Corrected Calcium 10.2 mg/dL (8.5-10.1) H 07/10/20 04:45 Magnesium 1.7 mg/dL (1.7-2.9) 07/02/20 20:38 Ferritin 274 ng/mL (26-388) 07/10/20 04:45 Total Bilirubin 0.70 mg/dL (0.2-1.0) 07/10/20 04:45 AST 26 Units/L (15-37) 07/10/20 04:45 ALT 47 Units/L (12-78) 07/10/20 04:45 Alkaline Phosphatase 57 Units/L (46-116) 07/10/20 04:45 Creatine Kinase 46 Units/L (39-308) 07/04/20 23:33 CK-MB (CK-2) < 1.0 ng/mL (0-4.0) 07/04/20 23:33 CK/CKMB % Calc 2.2 % (<4) 07/04/20 23:33 Troponin I < 0.02 ng/mL (0-1.5) 07/04/20 23:33 C-Reactive Protein 15.90 mg/L (0-3.0) H 07/10/20 04:45 B-Natriuretic Peptide 162 pg/mL (0-79) H 07/02/20 20:38 Total Protein 6.1 g/dL (6.4-8.2) L 07/10/20 04:45 Albumin 2.2 g/dL (3.4-5.0) L 07/10/20 04:45 Globulin 3.9 g/dL (2.5-4.5) 07/10/20 04:45 Albumin/Globulin Ratio 0.6 Ratio (1.1-2.1) L 07/10/20 04:45 Blood Type A POSITIVE 07/03/20 10:01 - Plan (1) Pneumonia due to COVID-19 virus Status: Acute Plan: 1/2NS AT 30 ML/HR, PROCAL AT 40 ML/HR, ALBUMIN 25% IV DAILY, LEVAQUIN 750MG IV DAILY, ZOSYN 3.375G IV TID, LOVENOX 30MG SC BID, DUONEBS TID, PULMICORT NEBS BID, MUCOMYST IN NEB [place], ROBITUSSIN DM 10 ML PO QID, SOLU-MEDROL 80MG IV Q8H, PEPCID 20MG PO BID, PROTONIX 40MG PO DAILY, ATIVAN 0.5MG PO BID, AND HIS HOME MEDICATIONS WERE RESUMED. (2) Hypoxia Status: Acute (3) HTN (hypertension) Status: Chronic Qualifiers: Hypertension type: essential hypertension Qualified Code(s): I10 - Essential (primary) hypertension (4) Hyperlipidemia Status: Chronic Qualifiers: Hyperlipidemia type: mixed hyperlipidemia Qualified Code(s): E78.2 - Mixed hyperlipidemia (5) Diabetes mellitus Status: Chronic Qualifiers: Diabetes mellitus type: type 2 Diabetes mellitus complication status: wit hout complication
[2020-07-10] MEDS ORDERED: LOVENOX INJ 40 MG SYR SC NR (14:00)
[2020-07-10] MEDS: PROCALAMINE 3 % 1,000 ML IV SCH (18:32)
[2020-07-10] MEDS: ZINC SULFATE PO SCH (21:27)
[2020-07-10] MEDS: LOVENOX INJ 100 MG SYR SC SCH (21:27)
[2020-07-11] MEDS ORDERED: GLUCOPHAGE ONE (04:46)
[2020-07-11] MEDS: SOLU-Medrol 125 MG VIAL IVP SCH ×3 (05:34→21:45)
[2020-07-11] MEDS: TESSALON PERLES PO SCH ×3 (05:35→21:45)
[2020-07-11] MEDS: SUBOXONE TAB SL SCH (05:35)
[2020-07-11] MEDS: ZOSYN VIAL 3.375 GRAMS 3.375 G in NS 100 ML IV + SPIKE MINIBAG* 100 ML IV SCH ×3 (05:35→21:45)
[2020-07-11] MEDS: GLUCOPHAGE PO SCH ×2 (06:00→17:01)
[2020-07-11 06:05] LABS: ABG BASE EXCESS 5.8 mmol/L (-2.0-2.0); ABG HCO3 29.8 mmol/L (22-26)
[2020-07-11 06:08] LABS: BASOPHILS % (AUTO) 0.2 % (0.2-1.0); HEMATOCRIT 35.9 % (42.0-54.0); HEMOGLOBIN 11.9 g/dL (13.5-18.0); LYMPHOCYTES # (AUTO) 0.2 X10^3/uL (1.3-2.9); LYMPHOCYTES % (AUTO) 1.6 % (21.0-51.0); MEAN CORPUSCULAR HEMOGLOBIN 30.7 pg (27.0-34.0); MEAN CORPUSCULAR HGB CONC 33.2 g/dL (33.0-35.0); MEAN CORPUSCULAR VOLUME 92.7 fL (80.0-100.0); MEAN PLATELET VOLUME 10.1 fL (7.4-11.0); MONOCYTES # (AUTO) 0.5 x10^3/uL (0.3-0.8); MONOCYTES % (AUTO) 3.6 % (0.0-13.0); NEUTROPHILS # (AUTO) 13.4 x10^3/uL (2.2-4.8); NEUTROPHILS % (AUTO) 94.6 % (42.0-75.0); PLATELET COUNT 179 X10^3/uL (150.0-450.0); RED BLOOD COUNT 3.87 X10^6/uL (4.7-6.0); RED CELL DISTRIBUTION WIDTH 12.7 % (11.6-16.5); WHITE BLOOD COUNT 14.2 X10^3/uL (3.6-10.0)
[2020-07-11 06:17] LABS: ALANINE AMINOTRANSFERASE 40 Units/L (12-78); ALBUMIN 2.6 g/dL (3.4-5.0); ALKALINE PHOSPHATASE 61 Units/L (46-116); ASPARTATE AMINO TRANSFERASE 25 Units/L (15-37); BLOOD UREA NITROGEN 30 mg/dL (7-18); CALCIUM 8.7 mg/dL (8.5-10.1); CARBON DIOXIDE 28.1 mmol/L (21-32); CHLORIDE 105 mmol/L (98-107); COR CA(FOR HYPOALB) 9.8 mg/dL (8.5-10.1); COR NA(FOR HYPERGLY) 143 mmol/L (136-145); CREATININE 0.92 mg/dL (0.70-1.30); SODIUM 140 mmol/L (136-145); TOTAL PROTEIN 6.2 g/dL (6.4-8.2); eGFR NON BLACK RACES > 60 (>60)
[2020-07-11] MEDS: DUONEB 0.5 MG/3 MG (3 mL) NEB SCH ×2 (06:30→12:25)
--- NOTE | 2020-07-11 06:38 | RAD ---
HISTORYSOBSTUDYCHEST, 1 [id number]/29/2020FINDINGSThe trachea is midline. The cardiac silhouette is unremarkable. Multifocal bilateral airspace disease unchanged. No pneumothorax.. The bony thorax is unremarkable.IMPRESSIONMultifocal bilateral airspace disease unchanged from 07/10/2020Electronically signed by: Maikel Bro (Jul 11, 2020 06:36:33)
[2020-07-11 07:49] LABS: BAND NEUTROPHILS % 2 % (0-10); PLATELET MORPHOLOGY COMMENT NORMAL (NORMAL)
[2020-07-11] MEDS: ALBUMIN HUMAN 25%- 100 ML 100 ML IV SCH (08:35)
[2020-07-11] MEDS: COREG TAB 6.25 MG PO SCH (08:36)
[2020-07-11] MEDS: JANUVIA PO SCH (08:36)
[2020-07-11] MEDS: LEVAQUIN PREMIX IV 750 MG 750 MG/150 ML BAG IV SCH (08:37)
[2020-07-11] MEDS: LOTENSIN TAB 10 MG PO SCH (08:37)
[2020-07-11] MEDS: TRICOR TAB 145 MG PO SCH (08:38)
[2020-07-11] MEDS: LOVENOX INJ 100 MG SYR SC SCH ×2 (08:38→20:27)
[2020-07-11] MEDS: PROTONIX TAB 40 MG PO SCH (08:38)
[2020-07-11] MEDS: ROBITUSSIN DM PO SCH ×4 (08:39→20:29)
[2020-07-11] MEDS: ZINC SULFATE PO SCH ×2 (08:39→20:30)
[2020-07-11] MEDS: PEPCID TAB 20 MG PO SCH ×2 (08:39→20:28)
[2020-07-11] MEDS: ZOCOR TAB 40 MG PO SCH (08:39)
[2020-07-11] MEDS: KLONOPIN TAB 0.5 MG PO PRN ×2 (08:41→20:31)
[2020-07-11] MEDS ORDERED: MORPHINE SULFATE INJ 2 MG INJ IVP PRN (09:16)
[2020-07-11] MEDS ORDERED: KLONOPIN TAB 1 MG PO ONE (09:25)
[2020-07-11] MEDS ORDERED: KLONOPIN TAB 1 MG ONE (09:38)
[2020-07-11] MEDS: PULMICORT NEB TX 0.5 MG NEB SCH ×2 (09:40→09:50)
[2020-07-11] MEDS: MUCOMYST 20% 200 MG/ML NEB SCH (12:25)
[2020-07-11] MEDS: MORPHINE SULFATE JET NEB NEB SCH (17:10)
--- NOTE | 2020-07-11 18:19 | PCM.PROG ---
Progress Note - Progress Note for Day of Date of Exam: 07/11/20 - Subjective Subjective: IS BEING TREATED FOR PNEUMONIA DUE TO COVID-19 AND HYPOXIA. TODAY, HE IS ALERT AND ORIENTED, LYING IN BED ON MORNING ROUNDS. HE CONTINUES WITH COMPLAINTS OF COUGH, SHORTNESS OF BREATH, AND GENERALIZED WEAKNESS. COUGH IS NON-PRODUCTIVE. HE DOES APPEAR TO BE ANXIOUS THIS MORNING. HE IS CURRENTLY UTILIZING OXYGEN VIA NON-REBREATHER. HE CONTINUED TO REFUSE THE BIPAP THROUGHOUT THE NIGHT. HIS OXYGEN SATURATIONS HAVE BEEN 80-88% ON THE NON- REBREATHER THIS MORNING AND HAVE OCCASIONALLY DROPPED TO THE 70s WITH MUCH MOVEMENT. HE REPORTS AN INCREASE IN SHORTNESS OF BREATH TODAY. ON EXAMINATION, HEART IS REGULAR IN RATE AND RHYTHM. BILATERAL LUNGS ARE NOTED WITH SCATTERED WHEEZING THROUGHOUT. ABDOMEN IS ROUND, SOFT, AND NON-TENDER WITH NORMAL BOWEL SOUNDS NOTED IN ALL QUADRANTS. HIS VITALS THIS MORNING ARE: 98.7-103-26-81%-146/73. LABS WERE OBTAINED. ABNORMAL LAB VALUES INCLUDE THE FOLLOWING: WBC 14.2, RBC 3.87, HGB 11.9, HCT 35.9, BUN 30, GLUCOSE 231, CRP 14.50, TOTAL PROTEIN 6.2, ALBUMIN 2.6. AN ABG WAS REPEATED TODAY AND REVEALED: PH 7.480, PC02 40, P02 48, HC03 29.8, 02 SAT 87, BASE EXCESS 5.8, A-a GRADIENT 615, FI02 100. BLOOD CULTURES ARE PENDING. CHEST XRAY REVEALED: Multifocal bilateral airspace disease unchanged from 07/10/2020. HE IS CURRENTLY RECEIVING: PROCAL AT 40 ML/HR, ALBUMIN 25% IV DAILY, LEVAQUIN 750MG IV DAILY, ZOSYN 3.375G IV TID, LOVENOX 30MG SC BID, DUONEBS TID, PULMICORT NEBS BID, MUCOMYST IN NEB [place], ROBITUSSIN DM 10 ML PO QID, TUSSIONEX 5ML PO Q12H PRN, SOLU-MEDROL 80MG IV Q8H, PEPCID 20MG PO BID, PROTONIX 40MG PO DAILY, CLONAZEPAM 0.5MG PO TID PRN, AND HIS HOME MEDICATIONS WERE RESUMED. TODAY, WE WILL DISCONTINUE THE SUBOXONE AND ADD MORPHINE 2MG TO HIS NEB [place] QID. PATIENT IS AGREEABLE TO THE BIPAP AT THIS TIME. PATIENT IS ENCOURAGED TO WEAR THE BIPAP AT ALL TIMES, EXCEPT WHILE EATING. OTHERWISE, WE WILL FOLLOW UP WITH AM LABS AND CONTINUE TO MONITOR. TIME SPENT ON CLINICAL ASSESSMENT, REVIEWING LABS AND IMAGING, DECISION MAKING, AND DOCUMENTATION GREATER THAN 75 MINUTES. - Past Medical Family Social History Past Med/Fam/Surg Hx: No changes since H&P Allergies: Allergies No Known Drug Allergies Allergy (Verified 07/02/20 17:24) - Review of Systems ROS: No change since H&P - Vital Signs and I&O's Vital Signs: Temperature 98.0 F Pulse Rate [Left Brachial] 87 Pulse Rate 78 Respiratory Rate 18 Blood Pressure [Left Arm] 133/74 Blood Pressure 159/77 O2 Sat by Pulse Oximetry 95 Intake and Output: Intake & Output 07/09/20 07/10/20 07/11/20 07/12/20 11:59 11:59 11:59 11:59 Intake Total 1736 / 1736 2734 / 2734 2320 / 2320 910 / 910 Output Total 1381 / 1381 1850 / 1850 1810 / 1810 950 / 950 Balance 355 / 355 884 / 884 510 / 510 -40 / -40 - Physical Exam Oriented: Normal Eyes: Normal Ear: Normal Nose: Normal Throat: Normal Respiratory: Generalized, Diminished, Wheezes Cardiovascular: Normal : Normal Auscultation: Bowel Sounds: Normal Tenderness: Normal Skin: Normal Musculoskeletal: Normal Psychiatric: Normal Mood Description: Calm Affect: Normal Speech Pattern: Clear, Appropriate - Laboratory and Diagnostics Result Diagrams: 07/11/20 04:50 07/11/20 04:50 Labs: 07/02/20 22:22 Blood Blood Culture - Final 07/02/20 20:38 Blood Blood Culture - Final Laboratory WBC 14.2 X10^3/uL (3.6-10.0) H 07/11/20 04:50 RBC 3.87 X10^6/uL (4.7-6.0) L 07/11/20 04:50 Hgb 11.9 g/dL (13.5-18.0) L 07/11/20 04:50 Hct 35.9 % (42.0-54.0) L 07/11/20 04:50 MCV 92.7 fL (80.0-100.0) 07/11/20 04:50 MCH 30.7 pg (27.0-34.0) 07/11/20 04:50 MCHC 33.2 g/dL (33.0-35.0) 07/11/20 04:50 RDW 12.7 % (11.6-16.5) 07/11/20 04:50 Plt Count 179 X10^3/uL (150.0-450.0) 07/11/20 04:50 Plt Count Comment Adequate (ADEQUATE) 07/11/20 04:50 MPV 10.1 fL (7.4-11.0) 07/11/20 04:50 Neut % (Auto) 94.6 % (42.0-75.0) H 07/11/20 04:50 Lymph % (Auto) 1.6 % (21.0-51.0) L 07/11/20 04:50 [place] % (Auto) 3.6 % (0.0-13.0) 07/11/20 04:50 Eos % (Auto) 0.0 % (0.9-2.9) L 07/11/20 04:50 Baso % (Auto) 0.2 % (0.2-1.0) 07/11/20 04:50 Neut # (Auto) 13.4 x10^3/uL (2.2-4.8) H 07/11/20 04:50 Lymph # (Auto) 0.2 X10^3/uL (1.3-2.9) L 07/11/20 04:50 [place] # (Auto) 0.5 x10^3/uL (0.3-0.8) 07/11/20 04:50 Eos # (Auto) 0.0 x10^3/uL (0.0-0.2) 07/11/20 04:50 Baso # (Auto) 0.0 X10^3/uL (0.0-0.1) 07/11/20 04:50 Absolute Nucleated RBC 0.0 /100WBC 07/11/20 04:50 Total Counted 100 07/11/20 04:50 Neutrophils % (Manual) 89 % (39-76) H 07/11/20 04:50 Band Neutrophils % 2 % (0-10) 07/11/20 04:50 Lymphocytes % (Manual) 5 % (13-43) L 07/11/20 04:50 Monocytes % (Manual) 4 % (4-9) 07/11/20 04:50 Plt Morphology Comment Normal (NORMAL) 07/11/20 04:50 RBC Morphology Normal (NORMAL) 07/11/20 04:50 PT 14.3 SECONDS (11.8-14.3) 07/02/20 20:38 INR Target Range - 07/02/20 20:38 INR 1.14 (0.8-1.3) 07/02/20 20:38 APTT 42.0 SECONDS (22.9-36.5) H 07/02/20 20:38 PTT Comment - 07/02/20 20:38 D-Dimer 3.96 ug/ml (0.0-0.57) H* 07/10/20 12:36 Sample Site Lb 07/11/20 06:00 ABG pH 7.480 (7.35-7.45) H 07/11/20 06:00 ABG pCO2 40.0 mmHg (35.0-45.0) 07/11/20 06:00 ABG pO2 48.0 mmHg (80.0-100.0) L* 07/11/20 06:00 ABG HCO3 29.8 mmol/L (22-26) H 07/11/20 06:00 ABG O2 Saturation 87.0 % (90-100) L 07/11/20 06:00 ABG Base Excess 5.8 mmol/L (-2.0-2.0) H 07/11/20 06:00 Cipriano Test Na 07/11/20 06:00 A-a Gradient 615.0 mmHg 07/11/20 06:00 FiO2 100.0 07/11/20 06:00 Blood Gas Comments Ez well gmb 07/11/20 06:00 Sodium 140 mmol/L (136-145) 07/11/20 04:50 Corrected Sodium 143 mmol/L (136-145) 07/11/20 04:50 Potassium 4.4 mmol/L (3.5-5.1) 07/11/20 04:50 Chloride 105 mmol/L (98-107) 07/11/20 04:50 Carbon Dioxide 28.1 mmol/L (21-32) 07/11/20 04:50 BUN 30 mg/dL (7-18) H 07/11/20 04:50 Creatinine 0.92 mg/dL (0.70-1.30) 07/11/20 04:50 Est GFR (MDRD) Af Amer > 60 (>60) 07/11/20 04:50 Est GFR (MDRD) Non-Af > 60 (>60) 07/11/20 04:50 Glucose 231 mg/dL (65-99) H 07/11/20 04:50 POC Glucose (mg/dL) 193 mg/dL (65-99) H 07/11/20 16:03 Calcium 8.7 mg/dL (8.5-10.1) 07/11/20 04:50 Corrected Calcium 9.8 mg/dL (8.5-10.1) 07/11/20 04:50 Magnesium 1.7 mg/dL (1.7-2.9) 07/02/20 20:38 Ferritin 283 ng/mL (26-388) 07/11/20 04:50 Total Bilirubin 0.80 mg/dL (0.2-1.0) 07/11/20 04:50 AST 25 Units/L (15-37) 07/11/20 04:50 ALT 40 Units/L (12-78) 07/11/20 04:50 Alkaline Phosphatase 61 Units/L (46-116) 07/11/20 04:50 Creatine Kinase 46 Units/L (39-308) 07/04/20 23:33 CK-MB (CK-2) < 1.0 ng/mL (0-4.0) 07/04/20 23:33 CK/CKMB % Calc 2.2 % (<4) 07/04/20 23:33 Troponin I < 0.02 ng/mL (0-1.5) 07/04/20 23:33 C-Reactive Protein 14.50 mg/L (0-3.0) H 07/11/20 04:50 B-Natriuretic Peptide 162 pg/mL (0-79) H 07/02/20 20:38 Total Protein 6.2 g/dL (6.4-8.2) L 07/11/20 04:50 Albumin 2.6 g/dL (3.4-5.0) L 07/11/20 04:50 Globulin 3.6 g/dL (2.5-4.5) 07/11/20 04:50 Albumin/Globulin Ratio 0.7 Ratio (1.1-2.1) L 07/11/20 04:50 Blood Type A POSITIVE 07/03/20 10:01 - Plan (1) Pneumonia due to COVID-19 virus Status: Acute Plan: 1/2NS AT 30 ML/HR, PROCAL AT 40 ML/HR, ALBUMIN 25% IV DAILY, LEVAQUIN 750MG IV DAILY, ZOSYN 3.375G IV TID, LOVENOX 30MG SC BID, DUONEBS TID, PULMICORT NEBS BID, MUCOMYST IN NEB [place], MORPHINE IN NEB [place], ROBITUSSIN DM 10 ML PO QID, SOLU-MEDROL 80MG IV Q8H, PEPCID 20MG PO BID, PROTONIX 40MG PO DAILY, ATIVAN 0.5MG PO BID, AND HIS HOME MEDICATIONS WERE RESUMED. (2) Hypoxia Status: Acute (3) HTN (hypertension) Status: Chronic Qualifiers: Hypertension type: essential hypertension Qualified Code(s): I10 - Essential (primary) hypertension (4) Hyperlipidemia Status: Chronic Qualifiers: Hyperlipidemia type: mixed hyperlipidemia Qualified Code(s): E78.2 - Mixed hyperlipidemia (5) Diabetes mellitus Status: Chronic Qualifiers: Diabetes mellitus type: type 2 Diabetes mellitus complication status: without complication
[2020-07-11 19:53] LABS: ABG BASE EXCESS 5.6 mmol/L (-2.0-2.0)
[2020-07-11 19:56] LABS: ABG ALLEN TEST POSS; ABG HCO3 30.6 mmol/L (22-26)
[2020-07-11] MEDS ORDERED: IVERMECTIN PO SCH ×2 (20:00→21:00)
[2020-07-11] MEDS: VITAMIN A PO SCH (20:25)
[2020-07-11] MEDS: VITAMIN D (1.25MG) PO SCH (20:26)
[2020-07-11] MEDS: LIPITOR TAB 40 MG PO SCH (20:26)
[2020-07-11] MEDS: ASCORBIC ACID INJ MULTI-DOSE VIAL 1,500 MG in NS 100 ML IV 100 ML IV SCH (20:26)
[2020-07-11] MEDS: THIAMINE HCL INJ IVP SCH (20:29)
[2020-07-11] MEDS ORDERED: NS 500 ML IV 500 ML IV ONE (21:57)
--- NOTE | 2020-07-11 22:51 | DR.UPDATE ---
H&P Update History and Physical Update: History and Physical reviewed and patient examined. Changes noted: NO Yes with the following:will place art line H&P Reviewed: Yes Patient was examined?: Yes Procedures (ALL) - Arterial Line Consent obtained: verbal consent Time out performed: Yes Size(gauge): 20 Technique used: guided wire technique Post-procedure: dry sterile dressing placed Patient tolerated procedure: Yes Site: Left, radial
[2020-07-12] MEDS: ASCORBIC ACID INJ MULTI-DOSE VIAL 1,500 MG in NS 100 ML IV 100 ML IV SCH ×2 (03:18→08:33)
[2020-07-12] MEDS: PULMICORT NEB TX 0.5 MG NEB SCH ×3 (04:07→20:55)
[2020-07-12] MEDS: MORPHINE SULFATE JET NEB NEB SCH ×5 (04:07→20:55)
[2020-07-12] MEDS: DUONEB 0.5 MG/3 MG (3 mL) NEB SCH ×3 (04:07→20:55)
[2020-07-12] MEDS ORDERED: GLUCOPHAGE ONE ×2 (04:21→16:45)
[2020-07-12] MEDS: ZOSYN VIAL 3.375 GRAMS 3.375 G in NS 100 ML IV + SPIKE MINIBAG* 100 ML IV SCH (05:34)
[2020-07-12] MEDS: TESSALON PERLES PO SCH ×3 (05:34→23:06)
[2020-07-12] MEDS: SOLU-Medrol 125 MG VIAL IVP SCH ×3 (05:34→23:06)
[2020-07-12 06:27] LABS: BASOPHILS % (AUTO) 0 % (0.2-1.0); HEMATOCRIT 31.1 % (42.0-54.0); HEMOGLOBIN 10.4 g/dL (13.5-18.0); LYMPHOCYTES # (AUTO) 0.1 X10^3/uL (1.3-2.9); LYMPHOCYTES % (AUTO) 2.4 % (21.0-51.0); MEAN CORPUSCULAR HEMOGLOBIN 31.1 pg (27.0-34.0); MEAN CORPUSCULAR HGB CONC 33.5 g/dL (33.0-35.0); MONOCYTES # (AUTO) 0.2 x10^3/uL (0.3-0.8); NEUTROPHILS % (AUTO) 93.6 % (42.0-75.0); RED BLOOD COUNT 3.35 X10^6/uL (4.7-6.0); RED CELL DISTRIBUTION WIDTH 12.7 % (11.6-16.5)
[2020-07-12 06:27] LABS: ABG BASE EXCESS 5.3 mmol/L (-2.0-2.0); ABG HCO3 30.5 mmol/L (22-26)
[2020-07-12 06:34] LABS: ALANINE AMINOTRANSFERASE 23 Units/L (12-78); ALBUMIN 2.5 g/dL (3.4-5.0); ALKALINE PHOSPHATASE 60 Units/L (46-116); ASPARTATE AMINO TRANSFERASE 24 Units/L (15-37); BLOOD UREA NITROGEN 31 mg/dL (7-18); CALCIUM 8.6 mg/dL (8.5-10.1); CARBON DIOXIDE 26.3 mmol/L (21-32); CHLORIDE 107 mmol/L (98-107); COR CA(FOR HYPOALB) 9.8 mg/dL (8.5-10.1); COR NA(FOR HYPERGLY) 145 mmol/L (136-145); CREATININE 0.79 mg/dL (0.70-1.30); SODIUM 141 mmol/L (136-145); TOTAL PROTEIN 5.7 g/dL (6.4-8.2); eGFR NON BLACK RACES > 60 (>60)
--- NOTE | 2020-07-12 06:46 | RAD ---
HISTORYShortness of breathSTUDYChest AP [id number]/30/2020FINDINGSThere is a right IJ line in good position. Heart size is normal. Diffuse bilateral ground-glass and alveolar infiltrates are unchanged. No pleural effusions are identified. Bony thorax is unremarkable.IMPRESSIONNo change diffuse bilateral ground-glass and alveolar infiltratesElectronically signed by: SHERI BUSTILLOS (Jul 12, 2020 06:44:23)
[2020-07-12] MEDS: GLUCOPHAGE PO SCH ×2 (06:57→16:38)
[2020-07-12 07:52] LABS: BAND NEUTROPHILS % 3 % (0-10); BASOPHILS % (MANUAL) 1 % (0-1); PLATELET MORPHOLOGY COMMENT NORMAL (NORMAL)
[2020-07-12] MEDS: ALBUMIN HUMAN 25%- 100 ML 100 ML IV SCH (08:32)
[2020-07-12] MEDS: COREG TAB 6.25 MG PO SCH (08:35)
[2020-07-12] MEDS: JANUVIA PO SCH (08:35)
[2020-07-12] MEDS: LEVAQUIN PREMIX IV 750 MG 750 MG/150 ML BAG IV SCH (08:36)
[2020-07-12] MEDS: LOVENOX INJ 100 MG SYR SC SCH (08:37)
[2020-07-12] MEDS: LOTENSIN TAB 10 MG PO SCH (08:37)
[2020-07-12] MEDS: PEPCID TAB 20 MG PO SCH ×2 (08:39→23:05)
[2020-07-12] MEDS: PROTONIX TAB 40 MG PO SCH (08:39)
[2020-07-12] MEDS: THIAMINE HCL INJ IVP SCH ×2 (08:40→23:06)
[2020-07-12] MEDS: TRICOR TAB 145 MG PO SCH (08:40)
[2020-07-12] MEDS: ROBITUSSIN DM PO SCH ×4 (08:40→23:06)
[2020-07-12] MEDS: VITAMIN D (1.25MG) PO SCH (08:41)
[2020-07-12] MEDS: ZINC SULFATE PO SCH ×2 (08:41→23:06)
[2020-07-12] MEDS: ZOCOR TAB 40 MG PO SCH (08:41)
[2020-07-12] MEDS: LIPITOR TAB 40 MG PO SCH (08:42)
[2020-07-12] MEDS: KLONOPIN TAB 0.5 MG PO PRN (08:43)
[2020-07-12] MEDS: VITAMIN A PO SCH (08:43)
[2020-07-12 13:33] LABS: PLATELET COUNT 164 X10^3/uL (150.0-450.0); WHITE BLOOD COUNT 13.8 X10^3/uL (3.6-10.0)
[2020-07-12] MEDS: ZOSYN VIAL 3.375 GRAMS 3.375 G in NS 50 ML IV + SPIKE MINIBAG* 50 ML IV SCH ×2 (14:17→23:07)
[2020-07-12] MEDS: ASCORBIC ACID INJ MULTI-DOSE VIAL 1,500 MG in NS 50 ML IV 50 ML IV SCH ×2 (14:27→23:05)
[2020-07-12] MEDS: ELIQUIS PO SCH ×2 (14:27→23:05)
[2020-07-12] MEDS ORDERED: NS 500 ML IV 500 ML IV ONE (14:48)
[2020-07-13] MEDS: ASCORBIC ACID INJ MULTI-DOSE VIAL 1,500 MG in NS 50 ML IV 50 ML IV SCH ×4 (03:05→21:34)
[2020-07-13] MEDS ORDERED: GLUCOPHAGE ONE ×2 (04:59→17:07)
[2020-07-13 05:35] LABS: ABG BASE EXCESS 6.5 mmol/L (-2.0-2.0)
[2020-07-13 05:36] LABS: ABG HCO3 31.9 mmol/L (22-26)
[2020-07-13] MEDS: SOLU-Medrol 125 MG VIAL IVP SCH ×3 (06:00→21:37)
[2020-07-13] MEDS: ZOSYN VIAL 3.375 GRAMS 3.375 G in NS 50 ML IV + SPIKE MINIBAG* 50 ML IV SCH ×3 (06:01→21:37)
[2020-07-13] MEDS: TESSALON PERLES PO SCH ×3 (06:01→21:36)
[2020-07-13] MEDS: GLUCOPHAGE PO SCH ×2 (06:01→17:15)
[2020-07-13 06:19] LABS: ALANINE AMINOTRANSFERASE 31 Units/L (12-78); ALBUMIN 2.8 g/dL (3.4-5.0); ALKALINE PHOSPHATASE 67 Units/L (46-116); ASPARTATE AMINO TRANSFERASE 25 Units/L (15-37); BLOOD UREA NITROGEN 30 mg/dL (7-18); CALCIUM 8.6 mg/dL (8.5-10.1); CARBON DIOXIDE 27.8 mmol/L (21-32); CHLORIDE 104 mmol/L (98-107); COR CA(FOR HYPOALB) 9.6 mg/dL (8.5-10.1); COR NA(FOR HYPERGLY) 143 mmol/L (136-145); CREATININE 0.81 mg/dL (0.70-1.30); SODIUM 140 mmol/L (136-145); TOTAL PROTEIN 6.2 g/dL (6.4-8.2); eGFR NON BLACK RACES > 60 (>60)
[2020-07-13 06:23] LABS: BASOPHILS % (AUTO) 0.1 % (0.2-1.0); HEMATOCRIT 30.9 % (42.0-54.0); HEMOGLOBIN 10.8 g/dL (13.5-18.0); LYMPHOCYTES # (AUTO) 0.2 X10^3/uL (1.3-2.9); LYMPHOCYTES % (AUTO) 1.3 % (21.0-51.0); MEAN CORPUSCULAR HGB CONC 34.8 g/dL (33.0-35.0); MEAN CORPUSCULAR VOLUME 91.9 fL (80.0-100.0); MONOCYTES # (AUTO) 0.5 x10^3/uL (0.3-0.8); MONOCYTES % (AUTO) 3.7 % (0.0-13.0); NEUTROPHILS # (AUTO) 12.4 x10^3/uL (2.2-4.8); NEUTROPHILS % (AUTO) 94.9 % (42.0-75.0); PLATELET COUNT 165 X10^3/uL (150.0-450.0); RED BLOOD COUNT 3.37 X10^6/uL (4.7-6.0); RED CELL DISTRIBUTION WIDTH 12.5 % (11.6-16.5); WHITE BLOOD COUNT 13.1 X10^3/uL (3.6-10.0)
[2020-07-13] MEDS: DUONEB 0.5 MG/3 MG (3 mL) NEB SCH ×3 (06:28→20:20)
[2020-07-13] MEDS: PROCALAMINE 3 % 1,000 ML IV SCH (06:53)
[2020-07-13 07:34] LABS: PLATELET MORPHOLOGY COMMENT NORMAL (NORMAL)
--- NOTE | 2020-07-13 08:09 | RAD ---
HISTORYSOBSTUDYCHEST, 1 [id number]/31/2020.TECHNIQUEAP view of the chestFINDINGSRight IJ central line in good position. The cardiac and mediastinal contours appear stable. Stable bilateral airspace and interstitial opacities. No definite pleural effusion or pneumothorax. There is a linear lucency inferior to the left hilum.IMPRESSIONStable pulmonary opacities. Linear lucency inferior to left hilum may be an air bronchogram. However, pneumomediastinum is not excluded. Recommend attention on follow-up versus CT for further evaluation.Electronically signed by: Reggie Keita (Jul 13, 2020 08:07:03)
[2020-07-13] MEDS: ALBUMIN HUMAN 25%- 100 ML 100 ML IV SCH (08:58)
[2020-07-13] MEDS: ELIQUIS PO SCH ×2 (09:00→21:34)
[2020-07-13] MEDS: LEVAQUIN PREMIX IV 750 MG 750 MG/150 ML BAG IV SCH (09:01)
[2020-07-13] MEDS: PROTONIX TAB 40 MG PO SCH (09:02)
[2020-07-13] MEDS: LIPITOR TAB 40 MG PO SCH (09:02)
[2020-07-13] MEDS: ROBITUSSIN DM PO SCH ×4 (09:03→21:35)
[2020-07-13] MEDS: THIAMINE HCL INJ IVP SCH ×2 (09:03→21:37)
[2020-07-13] MEDS: ZINC SULFATE PO SCH ×2 (09:04→21:36)
[2020-07-13] MEDS: JANUVIA PO SCH (09:04)
[2020-07-13] MEDS: VITAMIN D3 125 mcg (5,000 UNITS) PO SCH (09:04)
[2020-07-13] MEDS: ZOCOR TAB 40 MG PO SCH (09:04)
[2020-07-13] MEDS: COREG TAB 6.25 MG PO SCH (09:04)
[2020-07-13] MEDS: TRICOR TAB 145 MG PO SCH (09:05)
[2020-07-13] MEDS: LOTENSIN TAB 10 MG PO SCH (09:06)
[2020-07-13] MEDS: PEPCID TAB 20 MG PO SCH ×2 (09:06→21:35)
[2020-07-13] MEDS: VITAMIN A PO SCH (09:06)
[2020-07-13] MEDS: KLONOPIN TAB 0.5 MG PO PRN ×2 (09:07→17:15)
[2020-07-13] MEDS: PULMICORT NEB TX 0.5 MG NEB SCH ×2 (09:17→20:20)
[2020-07-13] MEDS: MORPHINE SULFATE JET NEB NEB SCH ×4 (09:17→20:20)
[2020-07-13] MEDS ORDERED: XANAX PO PRN (12:52)
--- NOTE | 2020-07-13 15:33 | CT ---
CHEST W/O CONCLINICAL INDICATION: POSS PNEUMOMEDIASTINUM ABN COVID +PROCEDURE: Noncontrast CT images were obtained through the chest. Dose reduction techniques including Automated Exposure Control (AEC) and adjustment of mA and kV were utlized.COMPARISON: [None]FINDINGS:The sensitivity for focal lesion detection within the mediastinum is diminished without the use of IV contrast.The heart is normal in size . No pericardial effusion . No suspicious mediastinal or axillary lymph nodes. There is moderate volume pneumomediastinum as well as air in the left supraclavicular region. Diffuse ground-glass is present without pleural effusion..Airways are patent . No suspicious pulmonary nodules or masses .Limited images of the upper abdomen are unremarkable.No aggressive osseous lesions.IMPRESSION:1. Moderate volume pneumomediastinum.2. Diffuse ground-glass opacities consistent with acute atypical infection.Electronically signed by: JEVON CALDERA (Jul 13, 2020 15:31:25)
[2020-07-13 19:23] LABS: BILIRUBIN,URINE NEGATIVE (NEGATIVE); BLOOD/HEMOGLOBIN,URINE 3+ (NEGATIVE); GLUCOSE, URINE NEGATIVE (NEGATIVE); KETONES,URINE NEGATIVE (NEGATIVE); LEUKOCYTE ESTERASE ,URINE NEGATIVE (NEGATIVE); NITRITES,URINE NEGATIVE (NEGATIVE); PH,URINE 6.5 (5.0 - 8.0); PROTEIN,URINE 1+ (NEGATIVE); UROBILINOGEN,URINE 2+ (NORMAL)
[2020-07-13 19:31] LABS: APPEARANCE,URINE CLEAR (CLEAR); COLOR,URINE AMBER (YELLOW)
[2020-07-13 19:33] LABS: BACTERIA,URINE NEGATIVE /HPF (NEGATIVE); SQUAMOUS EPITHELIAL CELL,UR RARE /HPF (NEGATIVE)
[2020-07-14] MEDS ORDERED: NS 500 ML IV 500 ML IV ONE (01:14)
[2020-07-14] MEDS: ASCORBIC ACID INJ MULTI-DOSE VIAL 1,500 MG in NS 50 ML IV 50 ML IV SCH ×4 (03:44→21:28)
[2020-07-14] MEDS: DUONEB 0.5 MG/3 MG (3 mL) NEB SCH ×3 (05:20→20:49)
[2020-07-14] MEDS ORDERED: GLUCOPHAGE ONE ×2 (05:34→17:19)
[2020-07-14] MEDS: SOLU-Medrol 125 MG VIAL IVP SCH ×3 (05:35→21:00)
[2020-07-14] MEDS: ZOSYN VIAL 3.375 GRAMS 3.375 G in NS 50 ML IV + SPIKE MINIBAG* 50 ML IV SCH ×3 (05:36→21:30)
[2020-07-14] MEDS: TESSALON PERLES PO SCH ×3 (05:36→21:00)
--- NOTE | 2020-07-14 05:37 | RAD ---
HISTORYHypoxia, SOB, covidSTUDYAP [id number]-stable heart size. Right jugular line remains at the cavoatr ial junction. Diffuse confluent and patchy airspace disease again noted bilaterally. Extrapulmonary a ir suggested at the left cardiac margin as before. No pneumothorax seen.IMPRESSIONNo significant talley ge. Persistent pneumomediastinum and bilateral pneumonia.Electronically signed by: LISA SIDDIQI (Elliot maldonado 2020 05:35:33)
[2020-07-14] MEDS: GLUCOPHAGE PO SCH ×3 (06:00→17:20)
[2020-07-14] MEDS: PROCALAMINE 3 % 1,000 ML IV SCH (06:19)
[2020-07-14 07:38] LABS: BASOPHILS % (AUTO) 0.1 % (0.2-1.0); EOSINOPHILS % (AUTO) 0.1 % (0.9-2.9); HEMATOCRIT 31.1 % (42.0-54.0); HEMOGLOBIN 10.6 g/dL (13.5-18.0); LYMPHOCYTES # (AUTO) 0.1 X10^3/uL (1.3-2.9); MEAN CORPUSCULAR HEMOGLOBIN 31.4 pg (27.0-34.0); MEAN CORPUSCULAR HGB CONC 34.1 g/dL (33.0-35.0); MEAN CORPUSCULAR VOLUME 92.1 fL (80.0-100.0); MEAN PLATELET VOLUME 10.5 fL (7.4-11.0); MONOCYTES # (AUTO) 0.5 x10^3/uL (0.3-0.8); MONOCYTES % (AUTO) 3.9 % (0.0-13.0); NEUTROPHILS # (AUTO) 13.4 x10^3/uL (2.2-4.8); NEUTROPHILS % (AUTO) 94.9 % (42.0-75.0); PLATELET COUNT 160 X10^3/uL (150.0-450.0); RED BLOOD COUNT 3.37 X10^6/uL (4.7-6.0); RED CELL DISTRIBUTION WIDTH 12.8 % (11.6-16.5); WHITE BLOOD COUNT 14.1 X10^3/uL (3.6-10.0)
[2020-07-14 07:43] LABS: ALANINE AMINOTRANSFERASE 29 Units/L (12-78); ALBUMIN 2.8 g/dL (3.4-5.0); ALKALINE PHOSPHATASE 80 Units/L (46-116); ASPARTATE AMINO TRANSFERASE 26 Units/L (15-37); BLOOD UREA NITROGEN 27 mg/dL (7-18); CALCIUM 8.6 mg/dL (8.5-10.1); CARBON DIOXIDE 28.2 mmol/L (21-32); CHLORIDE 103 mmol/L (98-107); COR CA(FOR HYPOALB) 9.6 mg/dL (8.5-10.1); COR NA(FOR HYPERGLY) 143 mmol/L (136-145); CREATININE 0.77 mg/dL (0.70-1.30); SODIUM 139 mmol/L (136-145); TOTAL PROTEIN 6.2 g/dL (6.4-8.2); eGFR NON BLACK RACES > 60 (>60)
[2020-07-14 08:15] LABS: BAND NEUTROPHILS % 2 % (0-10); PLATELET MORPHOLOGY COMMENT NORMAL (NORMAL)
[2020-07-14] MEDS: LEVAQUIN PREMIX IV 750 MG 750 MG/150 ML BAG IV SCH (08:17)
[2020-07-14] MEDS: ALBUMIN HUMAN 25%- 100 ML 100 ML IV SCH (08:23)
[2020-07-14] MEDS: AFRIN NASAL SPRAY PRN (08:25)
[2020-07-14] MEDS: THIAMINE HCL INJ IVP SCH ×2 (08:26→21:28)
[2020-07-14] MEDS: LIPITOR TAB 40 MG PO SCH (08:27)
[2020-07-14] MEDS: ROBITUSSIN DM PO SCH ×2 (08:27→12:30)
[2020-07-14] MEDS: ZINC SULFATE PO SCH ×2 (08:27→21:00)
[2020-07-14] MEDS: VITAMIN D3 125 mcg (5,000 UNITS) PO SCH (08:28)
[2020-07-14] MEDS: VITAMIN A PO SCH (08:29)
[2020-07-14] MEDS: TRICOR TAB 145 MG PO SCH (08:29)
[2020-07-14] MEDS: PROTONIX TAB 40 MG PO SCH (08:30)
[2020-07-14] MEDS: COREG TAB 6.25 MG PO SCH (08:30)
[2020-07-14] MEDS: ELIQUIS PO SCH ×2 (08:30→21:00)
[2020-07-14] MEDS: JANUVIA PO SCH (08:31)
[2020-07-14] MEDS: LOTENSIN TAB 10 MG PO SCH (08:31)
[2020-07-14] MEDS: KLONOPIN TAB 0.5 MG PO PRN ×2 (08:33→21:51)
[2020-07-14] MEDS: ZOCOR TAB 40 MG PO SCH (08:36)
[2020-07-14] MEDS: PULMICORT NEB TX 0.5 MG NEB SCH ×2 (09:21→20:49)
[2020-07-14] MEDS: MORPHINE SULFATE JET NEB NEB SCH ×5 (09:21→20:49)
[2020-07-14] MEDS: PEPCID TAB 20 MG PO SCH ×2 (11:59→21:31)
[2020-07-14] MEDS: IVERMECTIN PO SCH (12:30)
[2020-07-14] MEDS ORDERED: ROBITUSSIN DM PO PRN (17:00)
[2020-07-14] MEDS: HumuLIN R SUBCUT PRN ×2 (17:20→22:36)
[2020-07-14] MEDS: SNACK - Diabetic Appropriate PO SCH (21:00)
[2020-07-15] MEDS ORDERED: PROCALAMINE 3 % 1,000 ML IV ONE (02:58)
[2020-07-15] MEDS: PROCALAMINE 3 % 1,000 ML IV SCH (03:12)
[2020-07-15] MEDS: NS 500 ML IV 500 ML IV SCH (03:15)
[2020-07-15] MEDS: ASCORBIC ACID INJ MULTI-DOSE VIAL 1,500 MG in NS 50 ML IV 50 ML IV SCH ×4 (03:16→20:33)
[2020-07-15] MEDS ORDERED: GLUCOPHAGE ONE ×2 (05:36→17:52)
[2020-07-15 05:40] LABS: ABG BASE EXCESS 5.9 mmol/L (-2.0-2.0)
[2020-07-15 05:43] LABS: ABG HCO3 31.2 mmol/L (22-26)
[2020-07-15] MEDS: SOLU-Medrol 125 MG VIAL IVP SCH ×2 (05:43→15:57)
[2020-07-15] MEDS: DUONEB 0.5 MG/3 MG (3 mL) NEB SCH ×4 (05:45→21:00)
[2020-07-15 06:01] LABS: BASOPHILS # (AUTO) 0.1 X10^3/uL (0.0-0.1); BASOPHILS % (AUTO) 0.7 % (0.2-1.0); HEMATOCRIT 29.8 % (42.0-54.0); HEMOGLOBIN 9.9 g/dL (13.5-18.0); LYMPHOCYTES # (AUTO) 0.2 X10^3/uL (1.3-2.9); LYMPHOCYTES % (AUTO) 1.4 % (21.0-51.0); MEAN CORPUSCULAR HGB CONC 33.3 g/dL (33.0-35.0); MEAN CORPUSCULAR VOLUME 93.1 fL (80.0-100.0); MEAN PLATELET VOLUME 10.1 fL (7.4-11.0); MONOCYTES # (AUTO) 0.8 x10^3/uL (0.3-0.8); MONOCYTES % (AUTO) 4.9 % (0.0-13.0); NEUTROPHILS # (AUTO) 15.2 x10^3/uL (2.2-4.8); PLATELET COUNT 151 X10^3/uL (150.0-450.0); RED CELL DISTRIBUTION WIDTH 12.8 % (11.6-16.5); WHITE BLOOD COUNT 16.4 X10^3/uL (3.6-10.0)
[2020-07-15] MEDS: TESSALON PERLES PO SCH ×3 (06:14→20:59)
[2020-07-15] MEDS: ZOSYN VIAL 3.375 GRAMS 3.375 G in NS 50 ML IV + SPIKE MINIBAG* 50 ML IV SCH ×3 (06:14→20:59)
[2020-07-15] MEDS: GLUCOPHAGE PO SCH ×2 (06:14→18:36)
[2020-07-15 06:18] LABS: ALANINE AMINOTRANSFERASE 27 Units/L (12-78); ALBUMIN 2.8 g/dL (3.4-5.0); ALKALINE PHOSPHATASE 66 Units/L (46-116); ASPARTATE AMINO TRANSFERASE 21 Units/L (15-37); BLOOD UREA NITROGEN 27 mg/dL (7-18); CALCIUM 8.7 mg/dL (8.5-10.1); CHLORIDE 103 mmol/L (98-107); COR CA(FOR HYPOALB) 9.7 mg/dL (8.5-10.1); COR NA(FOR HYPERGLY) 141 mmol/L (136-145); CREATININE 0.77 mg/dL (0.70-1.30); SODIUM 138 mmol/L (136-145); eGFR NON BLACK RACES > 60 (>60)
[2020-07-15 06:47] LABS: BAND NEUTROPHILS % 2 % (0-10)
[2020-07-15 06:48] LABS: PLATELET MORPHOLOGY COMMENT NORMAL (NORMAL)
[2020-07-15] MEDS: HumuLIN R SUBCUT PRN ×4 (06:49→22:30)
[2020-07-15] MEDS: ALBUMIN HUMAN 25%- 100 ML 100 ML IV SCH (08:41)
[2020-07-15] MEDS: LEVAQUIN PREMIX IV 750 MG 750 MG/150 ML BAG IV SCH (09:00)
[2020-07-15] MEDS: MORPHINE SULFATE JET NEB NEB SCH ×4 (09:10→21:00)
[2020-07-15] MEDS: PULMICORT NEB TX 0.5 MG NEB SCH ×2 (09:10→21:00)
[2020-07-15] MEDS ORDERED: NS 50 ML IV 50 ML IV ONE (09:38)
[2020-07-15] MEDS: TRICOR TAB 145 MG PO SCH (09:45)
[2020-07-15] MEDS: PROTONIX TAB 40 MG PO SCH (09:45)
[2020-07-15] MEDS: ZINC SULFATE PO SCH ×2 (09:45→20:34)
[2020-07-15] MEDS: ELIQUIS PO SCH ×2 (09:45→20:34)
[2020-07-15] MEDS: JANUVIA PO SCH (09:45)
[2020-07-15] MEDS: LIPITOR TAB 40 MG PO SCH (09:45)
[2020-07-15] MEDS: VITAMIN D3 125 mcg (5,000 UNITS) PO SCH (09:45)
[2020-07-15] MEDS: LOTENSIN TAB 10 MG PO SCH (09:45)
[2020-07-15] MEDS: COREG TAB 6.25 MG PO SCH (09:45)
[2020-07-15] MEDS: ZOCOR TAB 40 MG PO SCH (09:45)
[2020-07-15] MEDS: VITAMIN A PO SCH (09:45)
[2020-07-15] MEDS: PEPCID TAB 20 MG PO SCH ×2 (11:41→20:58)
[2020-07-15] MEDS: THIAMINE HCL INJ IVP SCH ×2 (11:42→20:59)
[2020-07-15] MEDS ORDERED: ATIVAN INJ 2 MG VIAL IVP ONE ×2 (14:45→18:48)
[2020-07-15] MEDS ORDERED: ATIVAN INJ 2 MG VIAL ONE (14:46)
[2020-07-15] MEDS: SOLU-Medrol 40 MG VIAL IVP SCH ×2 (15:58→21:00)
[2020-07-15] MEDS: RHINOCORT ALLERGY NASAL SPRAY ENOSTRIL SCH ×2 (16:25→20:59)
[2020-07-15] MEDS: SNACK - Diabetic Appropriate PO SCH (20:00)
[2020-07-15 22:15] LABS: ABG BASE EXCESS 6.8 mmol/L (-2.0-2.0); ABG HCO3 31.3 mmol/L (22-26)
[2020-07-15] MEDS: ZOSYN VIAL 4.5 GRAMS 4.5 G in NS 50 ML IV + SPIKE MINIBAG* 50 ML IV SCH (22:46)
--- NOTE | 2020-07-15 22:52 | RAD ---
STUDY: CHEST, 1 VIEWCOMPARISON: July 14, 2020HISTORY: HYPOXIA, COVID+FINDINGS:Progressively worsening alveolar airspace disease is seen involving the right and left lung when compared to the prior examination. Progression is most notable in the right upper lung zone. No pleural effusion or pneumothorax is seen. The cardiomediastinal contour is stable.IMPRESSION:Findings are worrisome for COVID-19 pneumonia. Overall this appears slightly worsened when compared to the most recent chest x-ray dated July 14, 2020 at 1:22 a.m..Electronically signed by: Bart Swanson (Jul 15, 2020 22:50:32)
[2020-07-15] MEDS ORDERED: KETALAR ONE (23:31)
[2020-07-15] MEDS ORDERED: DIPRIVAN PREMIX 1 GRAM IV 1,000 MG/100 ML VIAL ONE (23:41)
--- NOTE | 2020-07-16 00:19 | DR.UPDATE ---
H&P Update History and Physical Update: History and Physical reviewed and patient examined. Changes noted: NO Yes with the following:will intubate - covid19 H&P Reviewed: Yes Patient was examined?: Yes Procedures (ALL) - Intubation Time out performed: Yes Sedative: ketamine (50mg, propofol 100mg) paralytic: succinylchline (100mg, norcuron 10mg after return of spontaneous resp) Assist device used: fiber optic device (glidescope 3, grade 1 view) ET tube size: 8 Tube secured depth: 24 Tube secured location: teeth Tube placement confirmation: visualized tube passing through cords, equal breath sounds bilaterally, no breath sounds over epigastrium, comfirmation by capnometer Patient tolerated procedure: Yes Intubation complications: none
--- NOTE | 2020-07-16 00:22 | RAD ---
STUDY: CHEST, 1 VIEWCOMPARISON: July 15, 2020HISTORY: ET TUBE PLACEMENTFINDINGS:Endotracheal tube is been placed with tip measuring 5 cm above the shalonda. Right IJ central line is stable. Cardiomediastinal contour is stable.Diffuse multifocal alveolar airspace disease is seen throughout the right left lung which appears worsened from prior examination.No pleural effusion or gross pneumothorax is seen.IMPRESSION:Overall there is progressively worsening alveolar airspace disease throughout the right and left lung with tip of endotracheal tube measuring 5 cm above the shalonda.Electronically signed by: Bart Swanson (Jul 16, 2020 00:19:35)
[2020-07-16] MEDS: VERSED 50 MG in NS 50 ML IV 40 ML IV PRN ×3 (02:15→13:05)
[2020-07-16] MEDS: ASCORBIC ACID INJ MULTI-DOSE VIAL 1,500 MG in NS 50 ML IV 50 ML IV SCH ×4 (03:30→22:00)
[2020-07-16] MEDS: DIPRIVAN PREMIX 1 GRAM IV 1,000 MG/100 ML VIAL IV PRN ×4 (04:30→19:22)
[2020-07-16] MEDS: NS 500 ML IV 500 ML IV SCH (04:42)
[2020-07-16 05:31] LABS: ABG BASE EXCESS 7.8 mmol/L (-2.0-2.0)
[2020-07-16 05:32] LABS: ABG HCO3 34.5 mmol/L (22-26)
[2020-07-16] MEDS: TESSALON PERLES PO SCH ×3 (05:36→22:00)
[2020-07-16] MEDS: ZOSYN VIAL 4.5 GRAMS 4.5 G in NS 50 ML IV + SPIKE MINIBAG* 50 ML IV SCH ×3 (05:36→22:00)
[2020-07-16] MEDS: SOLU-Medrol 40 MG VIAL IVP SCH (05:36)
[2020-07-16] MEDS: HumuLIN R SUBCUT PRN (05:58)
[2020-07-16] MEDS: DUONEB 0.5 MG/3 MG (3 mL) NEB SCH ×3 (06:17→20:20)
[2020-07-16 06:21] LABS: BASOPHILS % (AUTO) 0.1 % (0.2-1.0); HEMATOCRIT 31.7 % (42.0-54.0); HEMOGLOBIN 10.8 g/dL (13.5-18.0); LYMPHOCYTES # (AUTO) 0.5 X10^3/uL (1.3-2.9); LYMPHOCYTES % (AUTO) 1.9 % (21.0-51.0); MEAN CORPUSCULAR HEMOGLOBIN 31.3 pg (27.0-34.0); MEAN CORPUSCULAR HGB CONC 33.9 g/dL (33.0-35.0); MEAN CORPUSCULAR VOLUME 92.3 fL (80.0-100.0); MEAN PLATELET VOLUME 10.1 fL (7.4-11.0); MONOCYTES # (AUTO) 2.1 x10^3/uL (0.3-0.8); MONOCYTES % (AUTO) 8.9 % (0.0-13.0); NEUTROPHILS # (AUTO) 20.8 x10^3/uL (2.2-4.8); NEUTROPHILS % (AUTO) 89.1 % (42.0-75.0); PLATELET COUNT 183 X10^3/uL (150.0-450.0); RED BLOOD COUNT 3.44 X10^6/uL (4.7-6.0); RED CELL DISTRIBUTION WIDTH 12.7 % (11.6-16.5); WHITE BLOOD COUNT 23.4 X10^3/uL (3.6-10.0)
[2020-07-16] MEDS: GLUCOPHAGE PO SCH ×2 (06:28→17:20)
[2020-07-16 06:35] LABS: ALANINE AMINOTRANSFERASE 25 Units/L (12-78); ALBUMIN 2.8 g/dL (3.4-5.0); ALKALINE PHOSPHATASE 80 Units/L (46-116); ASPARTATE AMINO TRANSFERASE 23 Units/L (15-37); BLOOD UREA NITROGEN 23 mg/dL (7-18); CALCIUM 8.6 mg/dL (8.5-10.1); CARBON DIOXIDE 30.9 mmol/L (21-32); CHLORIDE 104 mmol/L (98-107); COR CA(FOR HYPOALB) 9.6 mg/dL (8.5-10.1); COR NA(FOR HYPERGLY) 142 mmol/L (136-145); CREATININE 0.72 mg/dL (0.70-1.30); SODIUM 140 mmol/L (136-145); TOTAL PROTEIN 6.2 g/dL (6.4-8.2); eGFR NON BLACK RACES > 60 (>60)
[2020-07-16 06:43] LABS: BAND NEUTROPHILS % 1 % (0-10)
[2020-07-16 06:44] LABS: PLATELET MORPHOLOGY COMMENT NORMAL (NORMAL)
[2020-07-16] MEDS: PULMICORT NEB TX 0.5 MG NEB SCH ×2 (09:00→20:20)
[2020-07-16] MEDS ORDERED: SOLU-Medrol 40 MG VIAL IVP SCH (10:00)
[2020-07-16] MEDS: LEVAQUIN PREMIX IV 750 MG 750 MG/150 ML BAG IV SCH (10:45)
[2020-07-16] MEDS: THIAMINE HCL INJ IVP SCH ×2 (10:45→22:00)
[2020-07-16] MEDS: ALBUMIN HUMAN 25%- 100 ML 100 ML IV SCH (10:56)
[2020-07-16] MEDS: LACRI-LUBE S.O.P. AFFEYE SCH ×2 (10:59→22:00)
[2020-07-16] MEDS: COREG TAB 6.25 MG PO SCH (10:59)
[2020-07-16] MEDS: JANUVIA PO SCH (10:59)
[2020-07-16] MEDS: LIPITOR TAB 40 MG PO SCH (11:02)
[2020-07-16] MEDS: LOTENSIN TAB 10 MG PO SCH (11:02)
[2020-07-16] MEDS: PEPCID TAB 20 MG PO SCH (11:02)
[2020-07-16] MEDS: PROTONIX TAB 40 MG PO SCH (11:03)
[2020-07-16] MEDS: RHINOCORT ALLERGY NASAL SPRAY ENOSTRIL SCH (11:03)
[2020-07-16] MEDS: TRICOR TAB 145 MG PO SCH (11:05)
[2020-07-16] MEDS: ZOCOR TAB 40 MG PO SCH (11:06)
[2020-07-16] MEDS: VITAMIN A PO SCH (11:06)
[2020-07-16] MEDS: VITAMIN D3 125 mcg (5,000 UNITS) PO SCH (11:06)
[2020-07-16] MEDS: ZINC SULFATE PO SCH (11:06)
[2020-07-16] MEDS: SOLU-Medrol 125 MG VIAL IVP SCH ×3 (12:23→22:00)
[2020-07-16] MEDS ORDERED: QUELICIN (OR ANECTINE) ONE (12:35)
[2020-07-16] MEDS ORDERED: DIPRIVAN VIAL ONE (12:35)
[2020-07-16] MEDS ORDERED: NORCURON INJ 10 MG VIAL ONE (12:35)
[2020-07-16] MEDS ORDERED: HEPARIN SODIUM INJ 5000 UNITS ONE (13:08)
[2020-07-16] MEDS ORDERED: HEPARIN SODIUM INJ 5000 UNITS IVP ONE (13:16)
[2020-07-16] MEDS: HEPARIN SODIUM IN D5W 25,000 UNITS/500 ML BAG IV PRN (13:19)
[2020-07-16] MEDS: IVERMECTIN PO SCH (13:57)
[2020-07-16] MEDS: MORPHINE SULFATE JET NEB NEB SCH (13:58)
[2020-07-16] MEDS: MORPHINE SULFATE PCA 30 MG IVP SCH ×10 (15:29→23:00)
--- NOTE | 2020-07-16 17:11 | CT ---
HISTORYABN COVID +STUDYCTA CHESTCOMPARISONNone.TECHNIQUEMultiple axial images of the chest were obtained from the thoracic inlet to the upper abdomen after the administration of IV contrast. 3D reconstructions utilizing axial MIPS imaging was performed and reviewed. Dose reduction techniques including Automated Exposure Control (AEC) and adjustment of mA and kV were utilized.FINDINGSImages are degraded by respiratory motion.VASCULAR: Suboptimal opacification of the pulmonary arterial vasculature with no evidence of pulmonary embolism to the lobar segments. Suboptimal opacification of the aorta without gross evidence of dissection. No aortic aneurysmal dilatation.A right IJ central venous catheter is seen.MEDIASTINUM: The heart and pericardium are normal. The thyroid is normal. Resolved pneumomediastinum.LYMPH NODES: No abnormality pathologic enlargement.AIRWAYS/LUNGS/PLEURA: Redemonstrated bilateral ground-glass airspace opacities, unchanged. No pleural effusion or pneumothorax.Endotracheal tube is seen in situ.VISUALIZED ABDOMEN: No acute abnormality.BONES/SOFT TISSUES: No acute abnormality. Apparent irregularity of the sternal cortex, likely reflecting motion artifact.IMPRESSION1. Redemonstrated bilateral ground-glass airspace opacities, concerning for pulmonary edema versus Covid pneumonia.Electronically signed by: Contreras Mata (Jul 16, 2020 17:08:45)
[2020-07-16] MEDS: VERSED 100 MG in NS 100 ML IV 80 ML IV PRN (18:54)
--- NOTE | 2020-07-16 19:58 | PCM.PROG ---
Progress Note - Progress Note for Day of Date of Exam: 07/16/20 - Subjective Subjective: IS BEING TREATED FOR PNEUMONIA DUE TO COVID-19 AND HYPOXIA. THROUGHOUT THE NIGHT, HE HAD A DROP IN HIS OXYGEN SATURATIONS TO THE 60s. STAFF REPORTS THAT IT TOOK ABOUT AN HOUR FOR HIS SATURATIONS TO RECOVER TO THE 80s. AFTER ABG WAS OBTAINED AND REVEALED A PO2 OF 39 AND CHEST XRAY REVEALED WORSENING PNEUMONIA, HE WAS PLACED ON THE MECHANICAL VENT. HIS SETTINGS ON THE VENT THIS MORNING ARE: A/C, VENT RATE 15, TIDAL VOLUME 500, PEEP 15, FI02 100. HIS OXYGEN SATURATIONS HAVE BEEN 88-92% ON THE NON-VENT THIS MORNING WITH AN OCCASIONAL DROP TO THE LOW 80s. ON EXAMINATION, HEART IS REGULAR IN RATE AND RHYTHM. BILATERAL LUNGS ARE NOTED WITH SCATTERED RALES THROUGHOUT. ABDOMEN IS ROUND, SOFT, AND NON-TENDER WITH NORMAL BOWEL SOUNDS NOTED IN ALL QUADRANTS. HIS VITALS THIS MORNING ARE: 97.4-78-25-92%-115/61. LABS WERE OBTAINED. ABNORMAL LAB VALUES INCLUDE THE FOLLOWING: WBC 23.4, RBC 3.44, HGB 10.8, HCT 31.7, D-DIMER 3.69, BUN 23, GLUCOSE 175, CRP 31.70, TOTAL PROTEIN 6.2, ALBUMIN 2.8. AN ABG WAS REPEATED TODAY AND REVEALED: PH 7.390, PC02 57, P02 65, HC03 34.5, 02 SAT 92, B ASE EXCESS 7.8, FI02 100. SPUTUM CULTURES ARE PENDING. A CHEST CTA WAS REPEATED THIS MORNING AND REVEALED: 1. Redemonstrated bilateral ground-glass airspace opacities, concerning for pulmonary edema versus Covid pneumonia. HE IS CURRENTLY RECEIVING: PROCAL AT 40 ML/HR, ALBUMIN 25% IV DAILY, LEVAQUIN 750MG IV DAILY, ZOSYN 4.5G IV TID, IVERMECTIN 18MG PO Q48H, ELIQUIS 5MG PO BID, DUONEBS TID, PULMICORT NEBS BID, MUCOMYST IN NEB [place], MORPHINE IN NEB [place], ROBITUSSIN DM 10 ML PO QID, TUSSIONEX 5ML PO Q12H PRN, SOLU-MEDROL, PEPCID 20MG PO BID, PROTONIX 40MG PO DAILY, CLONAZEPAM 0.5MG PO TID PRN, ASCORBIC ACID 1500MG IV Q6H, ZINC 220MG PO BID, VITAMIN A 10,000 UNITS PO DAILY, HUMULIN R SLIDING SCALE, AND HIS HOME MEDICATIONS WERE RESUMED. TODAY, WE WILL DISCONTINUE THE MORPHINE IN THE NEB TX AND START A MORPHINE OPTICAL FABRICATOR AT 1MG/HR, D/C THE ELIQUIS AND START A HEPARIN DRIP, AND INCREASE SOLU-MEDROL TO 125MG IV Q8H.OTHERWISE, WE WILL CONTINUE WITH CURRENT PLAN OF CARE TODAY. FOLLOW UP WITH AM LABS AND CONTINUE TO MONITOR. CRITICAL CARE TIME SPENT ON CLINICAL ASSESSMENT, REVIEWING LABS AND IMAGING, DECISION MAKING, AND DOCUMENTATION GREATER THAN 75 MINUTES. - Past Medical Family Social History Past Med/Fam/Surg Hx: No changes since H&P Allergies: Allergies No Known Drug Allergies Allergy (Verified 07/02/20 17:24) - Review of Systems ROS: No change since H&P - Vital Signs and I&O's Vital Signs: Temperature 97.4 F Pulse Rate [Left Brachial] 87 Pulse Rate 86 Respiratory Rate 29 Blood Pressure [Left Arm] 133/74 Blood Pressure 162/72 O2 Sat by Pulse Oximetry 94 Intake and Output: Intake & Output 07/14/20 07/15/20 07/16/20 07/17/20 11:59 11:59 11:59 11:59 Intake Total 1040 / 1040 2930 / 2930 1727 / 1727 150 / 150 Output Total 2350 / 2350 2225 / 2225 3300 / 3300 3000 / 3000 Balance -1310 / -1310 705 / 705 -1573 / -1573 -2850 / -2850 - Physical Exam Oriented: Normal Eyes: Normal Ear: Normal Nose: Normal Throat: Normal Respiratory: Generalized, Diminished, Rales Cardiovascular: Normal : Normal Auscultation: Bowel Sounds: Normal Palpation: Normal Tenderness: Normal Skin: Normal Musculoskeletal: Normal Psychiatric: Normal Mood Description: Calm Affect: Normal Speech Pattern: Artificially Ventilated - Laboratory and Diagnostics Result Diagrams: 07/16/20 04:50 07/16/20 04:50 Labs: 07/16/20 01:33 Sputum - Expectorated Sputum - Final 07/02/20 22:22 Blood Blood Culture - Final 07/02/20 20:38 Blood Blood Culture - Final Laboratory WBC 23.4 X10^3/uL (3.6-10.0) H 07/16/20 04:50 RBC 3.44 X10^6/uL (4.7-6.0) L 07/16/20 04:50 Hgb 10.8 g/dL (13.5-18.0) L 07/16/20 04:50 Hct 31.7 % (42.0-54.0) L 07/16/20 04:50 MCV 92.3 fL (80.0-100.0) 07/16/20 04:50 MCH 31.3 pg (27.0-34.0) 07/16/20 04:50 MCHC 33.9 g/dL (33.0-35.0) 07/16/20 04:50 RDW 12.7 % (11.6-16.5) 07/16/20 04:50 Plt Count 183 X10^3/uL (150.0-450.0) 07/16/20 04:50 Plt Count Comment Adequate (ADEQUATE) 07/16/20 04:50 MPV 10.1 fL (7.4-11.0) 07/16/20 04:50 Neut % (Auto) 89.1 % (42.0-75.0) H 07/16/20 04:50 Lymph % (Auto) 1.9 % (21.0-51.0) L 07/16/20 04:50 [place] % (Auto) 8.9 % (0.0-13.0) 07/16/20 04:50 Eos % (Auto) 0.0 % (0.9-2.9) L 07/16/20 04:50 Baso % (Auto) 0.1 % (0.2-1.0) L 07/16/20 04:50 Neut # (Auto) 20.8 x10^3/uL (2.2-4.8) H 07/16/20 04:50 Lymph # (Auto) 0.5 X10^3/uL (1.3-2.9) L 07/16/20 04:50 [place] # (Auto) 2.1 x10^3/uL (0.3-0.8) H 07/16/20 04:50 Eos # (Auto) 0.0 x10^3/uL (0.0-0.2) 07/16/20 04:50 Baso # (Auto) 0.0 X10^3/uL (0.0-0.1) 07/16/20 04:50 Absolute Nucleated RBC 0.0 /100WBC 07/16/20 04:50 Total Counted 100 07/16/20 04:50 Neutrophils % (Manual) 88 % (39-76) H 07/16/20 04:50 Band Neutrophils % 1 % (0-10) 07/16/20 04:50 Lymphocytes % (Manual) 4 % (13-43) L 07/16/20 04:50 Monocytes % (Manual) 7 % (4-9) 07/16/20 04:50 Basophils % (Manual) 1 % (0-1) 07/12/20 05:25 Plt Morphology Comment Normal (NORMAL) 07/16/20 04:50 RBC Morphology Normal (NORMAL) 07/16/20 04:50 PT 19.4 SECONDS (11.8-14.3) 07/16/20 04:50 INR Target Range - 07/16/20 04:50 INR 1.69 (0.8-1.3) H 07/16/20 04:50 APTT 48.3 SECONDS (22.9-36.5) H 07/16/20 18:35 PTT Comment - 07/16/20 18:35 D-Dimer 3.69 ug/ml (0.0-0.57) H* 07/16/20 13:30 Sample Site A line 07/16/20 05:00 ABG pH 7.390 (7.35-7.45) 07/16/20 05:00 ABG pCO2 57.0 mmHg (35.0-45.0) H* 07/16/20 05:00 ABG pO2 65.0 mmHg (80.0-100.0) L 07/16/20 05:00 ABG HCO3 34.5 mmol/L (22-26) H* 07/16/20 05:00 ABG O2 Saturation 92.0 % (90-100) 07/16/20 05:00 ABG Base Excess 7.8 mmol/L (-2.0-2.0) H 07/16/20 05:00 Cipraino Test Na 07/16/20 05:00 A-a Gradient 577.0 mmHg 07/16/20 05:00 FiO2 100.0 07/16/20 05:00 Blood Gas Comments Ez well sw 07/16/20 05:00 Sodium 140 mmol/L (136-145) 07/16/20 04:50 Corrected Sodium 142 mmol/L (136-145) 07/16/20 04:50 Potassium 4.3 mmol/L (3.5-5.1) 07/16/20 04:50 Chloride 104 mmol/L (98-107) 07/16/20 04:50 Carbon Dioxide 30.9 mmol/L (21-32) 07/16/20 04:50 BUN 23 mg/dL (7-18) H 07/16/20 04:50 Creatinine 0.72 mg/dL (0.70-1.30) 07/16/20 04:50 Est GFR (MDRD) Af Amer > 60 (>60) 07/16/20 04:50 Est GFR (MDRD) Non-Af > 60 (>60) 07/16/20 04:50 Glucose 175 mg/dL (65-99) H 07/16/20 04:50 POC Glucose (mg/dL) 171 mg/dL (65-99) H 07/16/20 17:46 Calcium 8.6 mg/dL (8.5-10.1) 07/16/20 04:50 Corrected Calcium 9.6 mg/dL (8.5-10.1) 07/16/20 04:50 Magnesium 1.7 mg/dL (1.7-2.9) 07/02/20 20:38 Ferritin 308 ng/mL (26-388) 07/13/20 04:39 Total Bilirubin 0.90 mg/dL (0.2-1.0) 07/16/20 04:50 AST 23 Units/L (15-37) 07/16/20 04:50 ALT 25 Units/L (12-78) 07/16/20 04:50 Alkaline Phosphatase 80 Units/L (46-116) 07/16/20 04:50 Creatine Kinase 46 Units/L (39-308) 07/04/20 23:33 CK-MB (CK-2) < 1.0 ng/mL (0-4.0) 07/04/20 23:33 CK/CKMB % Calc 2.2 % (<4) 07/04/20 23:33 Troponin I < 0.02 ng/mL (0-1.5) 07/04/20 23:33 C-Reactive Protein 31.70 mg/L (0-3.0) H 07/16/20 04:50 B-Natriuretic Peptide 162 pg/mL (0-79) H 07/02/20 20:38 Total Protein 6.2 g/dL (6.4-8.2) L 07/16/20 04:50 Albumin 2.8 g/dL (3.4-5.0) L 07/16/20 04:50 Globulin 3.4 g/dL (2.5-4.5) 07/16/20 04:50 Albumin/Globulin Ratio 0.8 Ratio (1.1-2.1) L 07/16/20 04:50 Specimen Type Catherized urine 07/13/20 18:45 Urine Color Helen (YELLOW) 07/13/20 18:45 Urine Appearance Clear (CLEAR) 07/13/20 18:45 Urine pH 6.5 (5.0 - 8.0) 07/13/20 18:45 Ur Specific [place] 1.015 (1.000-1.030) 07/13/20 18:45 Urine Protein 1+ (NEGATIVE) 07/13/20 18:45 Urine Glucose (UA) Negative (NEGATIVE) 07/13/20 18:45 Urine Ketones Negative (NEGATIVE) 07/13/20 18:45 Urine Occult Blood 3+ (NEGATIVE) 07/13/20 18:45 Urine Nitrite Negative (NEGATIVE) 07/13/20 18:45 Urine Bilirubin Negative (NEGATIVE) 07/13/20 18:45 Urine Urobilinogen 2+ (NORMAL) 07/13/20 18:45 Ur Leukocyte Esterase Negative (NEGATIVE) 07/13/20 18:45 Urine RBC 5-10 /HPF (0-3) A 07/13/20 18:45 Urine WBC None seen /HPF (0-5) 07/13/20 18:45 Ur Squamous Epith Cells Rare /HPF (NEGATIVE) 07/13/20 18:45 Urine Bacteria Negative /HPF (NEGATIVE) 07/13/20 18:45 Ur Culture Indicated? No/not indicated 07/13/20 18:45 SARS CoV-2 RNA Rapid ANNETTE Negative (NEGATIVE) 07/16/20 10:11 Blood Type A POSITIVE 07/12/20 12:16 Antibody Screen Negative 07/12/20 12:16 Crossmatch See Detail 07/12/20 12:16 - Plan (1) Pneumonia due to COVID-19 virus Status: Acute Plan: PROCAL AT 40 ML/HR, ALBUMIN 25% IV DAILY, LEVAQUIN 750MG IV DAILY, ZOSYN 4.5G IV TID, IVERMECTIN 18MG PO Q48H, HEPARIN DRIP, DUONEBS TID, PULMICORT NEBS BID, MUCOMYST IN NEB [place], MORPHINE OPTICAL FABRICATOR, ROBITUSSIN DM 10 ML PO QID, TUSSIONEX 5ML PO Q12H PRN, SOLU-MEDROL 125MG IV Q8H, PEPCID 20MG PO BID, PROTONIX 40MG PO DA BISI, CLONAZEPAM 0.5MG PO TID PRN, ASCORBIC ACID 1500MG IV Q6H, ZINC 220MG PO BID, VITAMIN A 10,000 UNITS PO DAILY, HUMULIN R SLIDING SCALE, AND HIS HOME MEDICATIONS WERE RESUMED. (2) Hypoxia Status: Acute (3) HTN (hypertension) Status: Chronic Qualifiers: Hypertension type: essential hypertension Qualified Code(s): I10 - Essential (primary) hypertension (4) Hyperlipidemia Status: Chronic Qualifiers: Hyperlipidemia type: mixed hyperlipidemia Qualified Code(s): E78.2 - Mixed hyperlipidemia (5) Diabetes mellitus Status: Chronic Qualifiers: Diabetes mellitus type: type 2 Diabetes mellitus complication status: without complication
[2020-07-17] MEDS: SNACK - Diabetic Appropriate PO SCH ×2 (00:20→23:56)
[2020-07-17] MEDS: ZINC SULFATE PO SCH ×2 (00:21→10:37)
[2020-07-17] MEDS: RHINOCORT ALLERGY NASAL SPRAY ENOSTRIL SCH ×3 (00:22→22:18)
[2020-07-17] MEDS: PEPCID TAB 20 MG PO SCH ×2 (00:22→10:37)
[2020-07-17] MEDS: DIPRIVAN PREMIX 1 GRAM IV 1,000 MG/100 ML VIAL IV PRN ×4 (00:52→23:35)
[2020-07-17] MEDS ORDERED: HEPARIN SODIUM INJ 5000 UNITS IVP ONE ×3 (01:20→20:44)
[2020-07-17] MEDS: MORPHINE SULFATE PCA 30 MG IVP SCH ×22 (01:24→23:48)
[2020-07-17] MEDS: ASCORBIC ACID INJ MULTI-DOSE VIAL 1,500 MG in NS 50 ML IV 50 ML IV SCH ×4 (03:15→22:00)
[2020-07-17] MEDS: NS 500 ML IV 500 ML IV SCH (03:30)
[2020-07-17 04:27] LABS: ABG BASE EXCESS 10.7 mmol/L (-2.0-2.0)
[2020-07-17 04:28] LABS: ABG HCO3 37.8 mmol/L (22-26)
[2020-07-17] MEDS: DUONEB 0.5 MG/3 MG (3 mL) NEB SCH ×3 (04:59→20:40)
[2020-07-17] MEDS: TESSALON PERLES PO SCH (05:25)
[2020-07-17] MEDS: VERSED 100 MG in NS 100 ML IV 80 ML IV PRN ×2 (05:29→18:45)
[2020-07-17] MEDS ORDERED: NS 50 ML IV + SPIKE MINIBAG* 50 ML IV ONE (05:40)
[2020-07-17] MEDS: SOLU-Medrol 125 MG VIAL IVP SCH ×3 (05:55→22:00)
[2020-07-17] MEDS: ZOSYN VIAL 4.5 GRAMS 4.5 G in NS 50 ML IV + SPIKE MINIBAG* 50 ML IV SCH (05:55)
[2020-07-17 05:59] LABS: BASOPHILS % (AUTO) 0.2 % (0.2-1.0); HEMATOCRIT 30.8 % (42.0-54.0); HEMOGLOBIN 10.4 g/dL (13.5-18.0); LYMPHOCYTES # (AUTO) 0.2 X10^3/uL (1.3-2.9); LYMPHOCYTES % (AUTO) 1.2 % (21.0-51.0); MEAN CORPUSCULAR HEMOGLOBIN 31.3 pg (27.0-34.0); MEAN CORPUSCULAR HGB CONC 33.7 g/dL (33.0-35.0); MEAN CORPUSCULAR VOLUME 92.9 fL (80.0-100.0); MEAN PLATELET VOLUME 10.3 fL (7.4-11.0); MONOCYTES % (AUTO) 5.9 % (0.0-13.0); NEUTROPHILS # (AUTO) 15.3 x10^3/uL (2.2-4.8); NEUTROPHILS % (AUTO) 92.7 % (42.0-75.0); PLATELET COUNT 158 X10^3/uL (150.0-450.0); RED BLOOD COUNT 3.31 X10^6/uL (4.7-6.0); RED CELL DISTRIBUTION WIDTH 12.8 % (11.6-16.5); WHITE BLOOD COUNT 16.5 X10^3/uL (3.6-10.0)
[2020-07-17] MEDS: GLUCOPHAGE PO SCH (06:18)
[2020-07-17 06:26] LABS: ALANINE AMINOTRANSFERASE 23 Units/L (12-78); ALBUMIN 2.9 g/dL (3.4-5.0); ALKALINE PHOSPHATASE 64 Units/L (46-116); ASPARTATE AMINO TRANSFERASE 16 Units/L (15-37); BLOOD UREA NITROGEN 21 mg/dL (7-18); CALCIUM 8.9 mg/dL (8.5-10.1); CARBON DIOXIDE 34.9 mmol/L (21-32); CHLORIDE 102 mmol/L (98-107); COR CA(FOR HYPOALB) 9.8 mg/dL (8.5-10.1); COR NA(FOR HYPERGLY) 144 mmol/L (136-145); CREATININE 0.61 mg/dL (0.70-1.30); SODIUM 142 mmol/L (136-145); TOTAL PROTEIN 6.3 g/dL (6.4-8.2); eGFR NON BLACK RACES > 60 (>60)
[2020-07-17 06:57] LABS: PLATELET MORPHOLOGY COMMENT NORMAL (NORMAL)
[2020-07-17] MEDS: HEPARIN SODIUM IN D5W 25,000 UNITS/500 ML BAG IV PRN ×3 (07:51→23:35)
--- NOTE | 2020-07-17 07:52 | RAD ---
HISTORYSOB, COVID+STUDYCHEST, 1 VIEWCOMPARISONPortable chest July 15, 2020.FINDINGSThe trachea is midline. ET tube is in good position at the T3 level. A right-sided internal jugular central venous catheter is in place with the tip in the superior vena cava. The cardiac silhouette is unremarkable . The bilateral diffuse interstitial infiltrates presently are prior right is greater than left in there is mild improvement in the infiltrates in the left mid and lower lung field compared to July 15, 2020 exam. No effusions are observed there is no pneumothorax. The bony thorax is unremarkable.IMPRESSIONStable diffuse interstitial infiltrates on the right but mild improvement in the left mid and lower lung field infiltrates compared to 15 July 2019 chest film.Right internal jugular central venous catheter an ET tube are in good position.Electronically signed by: CELIA WADE (Jul 17, 2020 07:50:25)
[2020-07-17] MEDS: ALBUMIN HUMAN 25%- 100 ML 100 ML IV SCH (08:43)
[2020-07-17] MEDS: COREG TAB 6.25 MG PO SCH (08:44)
[2020-07-17] MEDS: LEVAQUIN PREMIX IV 750 MG 750 MG/150 ML BAG IV SCH (08:45)
[2020-07-17] MEDS: THIAMINE HCL INJ IVP SCH ×2 (08:45→22:00)
[2020-07-17] MEDS: PULMICORT NEB TX 0.5 MG NEB SCH ×2 (08:48→20:40)
[2020-07-17] MEDS: JANUVIA PO SCH (10:34)
[2020-07-17] MEDS: LOTENSIN TAB 10 MG PO SCH (10:35)
[2020-07-17] MEDS: LIPITOR TAB 40 MG PO SCH (10:35)
[2020-07-17] MEDS: ZOCOR TAB 40 MG PO SCH (10:36)
[2020-07-17] MEDS: VITAMIN D3 125 mcg (5,000 UNITS) PO SCH (10:38)
[2020-07-17] MEDS: PROTONIX TAB 40 MG PO SCH (10:38)
[2020-07-17] MEDS: VITAMIN A PO SCH (10:38)
[2020-07-17] MEDS: TRICOR TAB 145 MG PO SCH (10:39)
[2020-07-17] MEDS: LACRI-LUBE S.O.P. AFFEYE SCH ×2 (12:07→21:00)
[2020-07-17] MEDS: HumuLIN R SUBCUT PRN (12:16)
[2020-07-17] MEDS: ZOSYN VIAL 3.375 GRAMS 3.375 G in NS 50 ML IV + SPIKE MINIBAG* 50 ML IV SCH ×2 (14:00→22:00)
[2020-07-17] MEDS ORDERED: HEPARIN SODIUM INJ 5000 UNITS ONE (14:42)
[2020-07-17] MEDS: DIFLUCAN 200 MG IV PREMIX* 200 MG/100 ML BAG IV SCH (18:03)
--- NOTE | 2020-07-17 20:17 | PCM.PROG ---
Progress Note - Progress Note for Day of Date of Exam: 07/17/20 - Subjective Subjective: IS BEING TREATED FOR PNEUMONIA DUE TO COVID-19 AND HYPOXIA. HE IS CURRENTLY ON THE MECHANICAL VENT. HIS SETTINGS ON THE VENT THIS MORNING ARE: A/C, VENT RATE 15, TIDAL VOLUME 500, PEAK FLOW 64, PEEP 15, FI02 100. HIS OXYGEN SATURATIONS HAVE BEEN 93-99% ON THE VENT THIS MORNING. ON EXAMINATION, HEART IS REGULAR IN RATE AND RHYTHM. BILATERAL LUNGS ARE NOTED WITH SCATTERED RALES THROUGHOUT. ABDOMEN IS ROUND, SOFT, AND NON-TENDER WITH NORMAL BOWEL SOUNDS NOTED IN ALL QUADRANTS. HIS VITALS THIS MORNING ARE: 98.4-82-21-98%-108/57. LABS WERE OBTAINED. ABNORMAL LAB VALUES INCLUDE THE FOLLOWING: WBC 16.5, RBC 3.31, HGB 10.4, HCT 30.8, PTT 71.3, CARBON DIOXIDE 34.9, BUN 21, CREATININE 0.61, GLUCOSE 192, CRP 48.30, TOTAL PROTEIN 6.3, ALBUMIN 2.9. AN ABG WAS REPEATED TODAY AND REVEALED: PH 7.400, PC02 61, P02 64, HC03 37.8, 02 SAT 92, BASE EXCESS 10.7, A-a GRADIENT 573, FI02 100. SPUTUM CULTURES ARE PENDING. A CHEST CTA WAS REPEATED THIS MORNING AND REVEALED: Stable diffuse interstitial infiltrates on the right but mild improvement in the left mid and lower lung field infiltrates compared to 15 July 2019 chest film. Right internal jugular central venous catheter an ET tube are in good position. HE IS CURRENTLY RECEIVING: PROCAL AT 40 ML/HR, ALBUMIN 25% IV DAILY, LEVAQUIN 750MG IV DAILY, ZOSYN 4.5G IV TID, IVERMECTIN 18MG PO Q48H, HEPARIN IV PER PROTOCOL, DUONEBS TID, PULMICORT NEBS BID, MUCOMYST IN NEB [place], MORPHINE 1MG/HR IV, ROBITUSSIN DM 10 ML PO QID, TUSSIONEX 5ML PO Q12H PRN, SOLU-MEDROL 125MG IV Q8H, PEPCID 20MG PO BID, PROTONIX 40MG PO DAILY, CLONAZEPAM 0.5MG PO TID PRN, ASCORBIC ACID 1500MG IV Q6H, ZINC 220MG PO BID, VITAMIN A 10,000 UNITS PO DAILY, HUMULIN R SLIDING SCALE, AND HIS HOME MEDICATIONS WERE RESUMED. OTHERWISE, WE WILL CONTINUE WITH CURRENT PLAN OF CARE TODAY. FOLLOW UP WITH AM LABS AND CONTINUE TO MONITOR. CRITICAL CARE TIME SPENT ON CLINICAL ASSESSMENT, REVIEWING LABS AND IMAGING, DECISION MAKING, DOCUMENTATION, AND SPEAKING WITH FAMILY MEMBERS WAS GREATER THAN 75 MINUTES. - Past Medical Family Social History Past Med/Fam/Surg Hx: No changes since H&P Allergies: Allergies No Known Drug Allergies Allergy (Verified 07/02/20 17:24) - Review of Systems ROS: No change since H&P - Vital Signs and I&O's Vital Signs: Temperature 99.4 F Pulse Rate [Left Brachial] 87 Pulse Rate 83 Respiratory Rate 22 Blood Pressure [Left Arm] 133/74 Blood Pressure 138/60 O2 Sat by Pulse Oximetry 95 Intake and Output: Intake & Output 07/15/20 07/16/20 07/17/20 07/18/20 11:59 11:59 11:59 11:59 Intake Total 2930 / 2930 1727 / 1727 2198 / 2198 1489 / 1489 Output Total 2225 / 2225 3300 / 3300 4375 / 4375 1000 / 1000 Balance 705 / 705 -1573 / -1573 -2177 / -2177 489 / 489 - Physical Exam Oriented: Normal Eyes: Normal Ear: Normal Nose: Normal Throat: Normal Respiratory: Generalized, Diminished, Rales Cardiovascular: Normal : Normal Auscultation: Bowel Sounds: Normal Palpation: Normal Tenderness: Normal Skin: Normal Musculoskeletal: Normal Psychiatric: Normal Mood Description: Calm Affect: Normal Speech Pattern: Artificially Ventilated - Laboratory and Diagnostics Result Diagrams: 07/17/20 04:50 07/17/20 04:50 Labs: 07/16/20 01:33 Sputum - Expectorated Sputum Sputum Culture - Preliminary 07/16/20 01:33 Sputum - Expectorated Sputum - Final 07/02/20 22:22 Blood Blood Culture - Final 07/02/20 20:38 Blood Blood Culture - Final Laboratory WBC 16.5 X10^3/uL (3.6-10.0) H 07/17/20 04:50 RBC 3.31 X10^6/uL (4.7-6.0) L 07/17/20 04:50 Hgb 10.4 g/dL (13.5-18.0) L 07/17/20 04:50 Hct 30.8 % (42.0-54.0) L 07/17/20 04:50 MCV 92.9 fL (80.0-100.0) 07/17/20 04:50 MCH 31.3 pg (27.0-34.0) 07/17/20 04:50 MCHC 33.7 g/dL (33.0-35.0) 07/17/20 04:50 RDW 12.8 % (11.6-16.5) 07/17/20 04:50 Plt Count 158 X10^3/uL (150.0-450.0) 07/17/20 04:50 Plt Count Comment Adequate (ADEQUATE) 07/17/20 04:50 MPV 10.3 fL (7.4-11.0) 07/17/20 04:50 Neut % (Auto) 92.7 % (42.0-75.0) H 07/17/20 04:50 Lymph % (Auto) 1.2 % (21.0-51.0) L 07/17/20 04:50 [place] % (Auto) 5.9 % (0.0-13.0) 07/17/20 04:50 Eos % (Auto) 0.0 % (0.9-2.9) L 07/17/20 04:50 Baso % (Auto) 0.2 % (0.2-1.0) 07/17/20 04:50 Neut # (Auto) 15.3 x10^3/uL (2.2-4.8) H 07/17/20 04:50 Lymph # (Auto) 0.2 X10^3/uL (1.3-2.9) L 07/17/20 04:50 [place] # (Auto) 1.0 x10^3/uL (0.3-0.8) H 07/17/20 04:50 Eos # (Auto) 0.0 x10^3/uL (0.0-0.2) 07/17/20 04:50 Baso # (Auto) 0.0 X10^3/uL (0.0-0.1) 07/17/20 04:50 Absolute Nucleated RBC 0.0 /100WBC 07/17/20 04:50 Total Counted 100 07/17/20 04:50 Neutrophils % (Manual) 94 % (39-76) H 07/17/20 04:50 Band Neutrophils % 1 % (0-10) 07/16/20 04:50 Lymphocytes % (Manual) 4 % (13-43) L 07/17/20 04:50 Monocytes % (Manual) 2 % (4-9) L 07/17/20 04:50 Basophils % (Manual) 1 % (0-1) 07/12/20 05:25 Plt Morphology Comment Normal (NORMAL) 07/17/20 04:50 RBC Morphology Normal (NORMAL) 07/17/20 04:50 PT 19.4 SECONDS (11.8-14.3) 07/16/20 04:50 INR Target Range - 07/16/20 04:50 INR 1.69 (0.8-1.3) H 07/16/20 04:50 APTT 57.3 SECONDS (22.9-36.5) H 07/17/20 19:09 PTT Comment - 07/17/20 19:09 D-Dimer 3.69 ug/ml (0.0-0.57) H* 07/16/20 13:30 Sample Site [place] 07/17/20 04:23 ABG pH 7.400 (7.35-7.45) 07/17/20 04:23 ABG pCO2 61.0 mmHg (35.0-45.0) H* 07/17/20 04:23 ABG pO2 64.0 mmHg (80.0-100.0) L 07/17/20 04:23 ABG HCO3 37.8 mmol/L (22-26) H* 07/17/20 04:23 ABG O2 Saturation 92.0 % (90-100) 07/17/20 04:23 ABG Base Excess 10.7 mmol/L (-2.0-2.0) H 07/17/20 04:23 Cipriano Test N/a 07/17/20 04:23 A-a Gradient 573.0 mmHg 07/17/20 04:23 FiO2 100.0 07/17/20 04:23 Blood Gas Comments Ez well ae 07/17/20 04:23 Sodium 142 mmol/L (136-145) 07/17/20 04:50 Corrected Sodium 144 mmol/L (136-145) 07/17/20 04:50 Potassium 4.1 mmol/L (3.5-5.1) 07/17/20 04:50 Chloride 102 mmol/L (98-107) 07/17/20 04:50 Carbon Dioxide 34.9 mmol/L (21-32) H 07/17/20 04:50 BUN 21 mg/dL (7-18) H 07/17/20 04:50 Creatinine 0.61 mg/dL (0.70-1.30) L 07/17/20 04:50 Est GFR (MDRD) Af Amer > 60 (>60) 07/17/20 04:50 Est GFR (MDRD) Non-Af > 60 (>60) 07/17/20 04:50 Glucose 192 mg/dL (65-99) H 07/17/20 04:50 POC Glucose (mg/dL) 159 mg/dL (65-99) H 07/17/20 15:58 Calcium 8.9 mg/dL (8.5-10.1) 07/17/20 04:50 Corrected Calcium 9.8 mg/dL (8.5-10.1) 07/17/20 04:50 Magnesium 1.7 mg/dL (1.7-2.9) 07/02/20 20:38 Ferritin 308 ng/mL (26-388) 07/13/20 04:39 Total Bilirubin 1.00 mg/dL (0.2-1.0) 07/17/20 04:50 AST 16 Units/L (15-37) 07/17/20 04:50 ALT 23 Units/L (12-78) 07/17/20 04:50 Alkaline Phosphatase 64 Units/L (46-116) 07/17/20 04:50 Creatine Kinase 46 Units/L (39-308) 07/04/20 23:33 CK-MB (CK-2) < 1.0 ng/mL (0-4.0) 07/04/20 23:33 CK/CKMB % Calc 2.2 % (<4) 07/04/20 23:33 Troponin I < 0.02 ng/mL (0-1.5) 07/04/20 23:33 C-Reactive Protein 48.30 mg/L (0-3.0) H 07/17/20 04:50 B-Natriuretic Peptide 162 pg/mL (0-79) H 07/02/20 20:38 Total Protein 6.3 g/dL (6.4-8.2) L 07/17/20 04:50 Albumin 2.9 g/dL (3.4-5.0) L 07/17/20 04:50 Globulin 3.4 g/dL (2.5-4.5) 07/17/20 04:50 Albumin/Globulin Ratio 0.9 Ratio (1.1-2.1) L 07/17/20 04:50 Specimen Type Catherized urine 07/13/20 18:45 Urine Color [place] (YELLOW) 07/13/20 18:45 Urine Appearance Clear (CLEAR) 07/13/20 18:45 Urine pH 6.5 (5.0 - 8.0) 07/13/20 18:45 Ur Specific [place] 1.015 (1.000-1.030) 07/13/20 18:45 Urine Protein 1+ (NEGATIVE) 07/13/20 18:45 Urine Glucose (UA) Negative (NEGATIVE) 07/13/20 18:45 Urine Ketones Negative (NEGATIVE) 07/13/20 18:45 Urine Occult Blood 3+ (NEGATIVE) 07/13/20 18:45 Urine Nitrite Negative (NEGATIVE) 07/13/20 18:45 Urine Bilirubin Negative (NEGATIVE) 07/13/20 18:45 Urine Urobilinogen 2+ (NORMAL) 07/13/20 18:45 Ur Leukocyte Esterase Negative (NEGATIVE) 07/13/20 18:45 Urine RBC 5-10 /HPF (0-3) A 07/13/20 18:45 Urine WBC None seen /HPF (0-5) 07/13/20 18:45 Ur Squamous Epith Cells Rare /HPF (NEGATIVE) 07/13/20 18:45 Urine Bacteria Negative /HPF (NEGATIVE) 07/13/20 18:45 Ur Culture Indicated? No/not indicated 07/13/20 18:45 SARS CoV-2 RNA Rapid ANNETTE Negative (NEGATIVE) 07/16/20 10:11 Blood Type A POSITIVE 07/12/20 12:16 Antibody Screen Negative 07/12/20 12:16 Crossmatch See Detail 07/12/20 12:16 - Plan (1) Pneumonia due to COVID-19 virus Status: Acute Plan: PROCAL AT 40 ML/HR, ALBUMIN 25% IV DAILY, LEVAQUIN 750MG IV DAILY, ZOSYN 4.5G IV TID, IVERMECTIN 18MG PO Q48H, HEPARIN DRIP, DUONEBS TID, PULMICORT NEBS BID, MUCOMYST IN NEB [place], MORPHINE [employer]NA[employer]ING, ROBITUSSIN DM 10 ML PO QID, TUSSIONEX 5ML PO Q12H PRN, SOLU-MEDROL 125MG IV Q8H, PEPCID 20MG PO BID, PROTONIX 40MG PO DAILY, CLONAZEPAM 0.5MG PO TID PRN, ASCORBIC ACID 1500MG IV Q6H, ZINC 220MG PO BID, VITAMIN A 10,000 UNITS PO DAILY, HUMULIN R SLIDING SCALE, AND HIS HOME MEDICATIONS WERE RESUMED. (2) Hypoxia Status: Acute (3) HTN (hypertension) Status: Chronic Qualifiers: Hypertension type: essential hypertension Qualified Code(s): I10 - Essential (primary) hypertension (4) Hyperlipidemia Status: Chronic Qualifiers: Hyperlipidemia type: mixed hyperlipidemia Qualified Code(s): E78.2 - Mixed hyperlipidemia (5) Diabetes mellitus Status: Chronic Qualifiers: Diabetes mellitus type: type 2 Diabetes mellitus complication status: without complication
[2020-07-17] MEDS: PEPCID 20 MG IV PREMIX IV SCH (22:00)
[2020-07-18] MEDS: MORPHINE SULFATE PCA 30 MG IVP SCH ×7 (01:00→06:10)
--- NOTE | 2020-07-18 02:12 | RAD ---
STUDY: CHEST, 1 VIEWCOMPARISON: 07/17/2020HISTORY: RIGHT NECK SWELLINGFINDINGS:Since the prior exam, there is interval development of diffuse subcutaneous emphysema which was not present on the prior study. This is seen overlying the right and left mack thorax. This is also seen extending superiorly to the level of the soft tissue neck.The tip of the endotracheal tube measures 5.3 cm above the shalonda. The right IJ central line is seen with tip projecting over the distal SVC near the right atrial junction.There is diffuse pneumomediastinum and pneumopericardium. Lucency along the left apex may represent left-sided pneumothorax.Multifocal alveolar airspace disease is seen throughout the right and left lung which is unchanged from the prior examination. Costophrenic angles are not in the field of view. Cardiomediastinal contour is grossly stable.IMPRESSION:1. Lines and tubes as above2. Interval development of diffuse subcutaneous emphysema over the thorax and soft tissue neck3. Pneumomediastinum and pneumopericardium is noted4. Possible left-sided pneumothorax. Follow-up with CT chest may be obtained if this is felt to be clinically indicated and not contraindicated.Electronically signed by: Bart Swanson (Jul 18, 2020 02:10:52)
[2020-07-18] MEDS: ASCORBIC ACID INJ MULTI-DOSE VIAL 1,500 MG in NS 50 ML IV 50 ML IV SCH ×4 (03:46→22:00)
[2020-07-18] MEDS: NS 500 ML IV 500 ML IV SCH (03:47)
[2020-07-18 05:28] LABS: ABG BASE EXCESS 15.3 mmol/L (-2.0-2.0)
[2020-07-18 05:29] LABS: ABG HCO3 42.5 mmol/L (22-26)
[2020-07-18] MEDS: VERSED 100 MG in NS 100 ML IV 80 ML IV PRN ×2 (05:33→19:30)
[2020-07-18] MEDS: DIPRIVAN PREMIX 1 GRAM IV 1,000 MG/100 ML VIAL IV PRN ×3 (05:33→17:58)
[2020-07-18] MEDS: ZOSYN VIAL 3.375 GRAMS 3.375 G in NS 50 ML IV + SPIKE MINIBAG* 50 ML IV SCH (05:53)
[2020-07-18] MEDS: SOLU-Medrol 125 MG VIAL IVP SCH ×3 (05:53→22:16)
[2020-07-18] MEDS: DUONEB 0.5 MG/3 MG (3 mL) NEB SCH ×3 (06:29→21:17)
[2020-07-18] MEDS: HumuLIN R SUBCUT PRN ×4 (06:52→23:00)
--- NOTE | 2020-07-18 08:07 | RAD ---
HISTORYVENTILATOR PROTOCOLSTUDYCHEST, 1 [id number] opacity in the lungs is compatible with pneumonia as seen o n the CT 07/16/2020. No change from prior study. There is no obvious pneumothorax. No significant eff usion.Extensive emphysema is noted in the chest wall, the axillae and the base of the neck, probably from barotrauma. This is also unchanged. There is probably a lesser extent of pneumomediastinum seen superiorly; also unchanged.Heart size is normal.Bones are unremarkable.The endotracheal tube is anato elise in position in the trachea. Right jugular central venous catheter is in the expected location of the superior vena cava. EKG leads are noted.IMPRESSION1. Unchanged bronchopneumonia2. Unchanged soft tissue emphysema and pneumomediastinumElectronically signed by: Devon Herrera (Jul 18, 2020 08:05 :40)
[2020-07-18 08:24] LABS: BASOPHILS # (AUTO) 0.1 X10^3/uL (0.0-0.1); BASOPHILS % (AUTO) 0.4 % (0.2-1.0); HEMATOCRIT 31.3 % (42.0-54.0); HEMOGLOBIN 10.3 g/dL (13.5-18.0); LYMPHOCYTES # (AUTO) 0.2 X10^3/uL (1.3-2.9); LYMPHOCYTES % (AUTO) 1.2 % (21.0-51.0); MEAN CORPUSCULAR HGB CONC 32.9 g/dL (33.0-35.0); MEAN CORPUSCULAR VOLUME 94.2 fL (80.0-100.0); MEAN PLATELET VOLUME 9.8 fL (7.4-11.0); MONOCYTES # (AUTO) 0.9 x10^3/uL (0.3-0.8); MONOCYTES % (AUTO) 5.6 % (0.0-13.0); NEUTROPHILS # (AUTO) 15.4 x10^3/uL (2.2-4.8); NEUTROPHILS % (AUTO) 92.8 % (42.0-75.0); PLATELET COUNT 164 X10^3/uL (150.0-450.0); RED BLOOD COUNT 3.32 X10^6/uL (4.7-6.0); RED CELL DISTRIBUTION WIDTH 12.9 % (11.6-16.5); WHITE BLOOD COUNT 16.6 X10^3/uL (3.6-10.0)
[2020-07-18 08:35] LABS: ALANINE AMINOTRANSFERASE 18 Units/L (12-78); ALBUMIN 2.9 g/dL (3.4-5.0); ALKALINE PHOSPHATASE 61 Units/L (46-116); ASPARTATE AMINO TRANSFERASE 12 Units/L (15-37); BLOOD UREA NITROGEN 25 mg/dL (7-18); CALCIUM 9.1 mg/dL (8.5-10.1); CARBON DIOXIDE 36.4 mmol/L (21-32); CHLORIDE 103 mmol/L (98-107); COR NA(FOR HYPERGLY) 146 mmol/L (136-145); CREATININE 0.66 mg/dL (0.70-1.30); SODIUM 143 mmol/L (136-145); TOTAL PROTEIN 6.5 g/dL (6.4-8.2); eGFR NON BLACK RACES > 60 (>60)
[2020-07-18 08:45] LABS: PLATELET MORPHOLOGY COMMENT NORMAL (NORMAL)
[2020-07-18] MEDS: PULMICORT NEB TX 0.5 MG NEB SCH ×2 (08:51→21:17)
[2020-07-18] MEDS: ALBUMIN HUMAN 25%- 100 ML 100 ML IV SCH (09:33)
[2020-07-18] MEDS: THIAMINE HCL INJ IVP SCH ×2 (09:34→22:00)
[2020-07-18] MEDS: LEVAQUIN PREMIX IV 750 MG 750 MG/150 ML BAG IV SCH (09:34)
[2020-07-18] MEDS: DIFLUCAN 200 MG IV PREMIX* 200 MG/100 ML BAG IV SCH (09:34)
[2020-07-18] MEDS: PEPCID 20 MG IV PREMIX IV SCH ×2 (09:35→22:00)
[2020-07-18] MEDS: PROTONIX INJ 40 MG VIAL IVP SCH (09:35)
[2020-07-18] MEDS: LACRI-LUBE S.O.P. AFFEYE SCH ×2 (09:35→22:00)
[2020-07-18] MEDS: RHINOCORT ALLERGY NASAL SPRAY ENOSTRIL SCH ×2 (09:36→22:16)
[2020-07-18] MEDS: IVERMECTIN PO SCH (14:07)
[2020-07-18] MEDS: HEPARIN SODIUM IN D5W 25,000 UNITS/500 ML BAG IV PRN ×2 (15:19→15:20)
[2020-07-18] MEDS ORDERED: HEPARIN SODIUM INJ 5000 UNITS IVP ONE (15:23)
[2020-07-18] MEDS ORDERED: HEPARIN SODIUM INJ 5000 UNITS ONE (15:26)
[2020-07-18] MEDS ORDERED: MORPHINE SULFATE PCA 30 MG IVP PRN (16:00)
[2020-07-18] MEDS: PROCALAMINE 3 % 1,000 ML IV SCH (17:57)
--- NOTE | 2020-07-18 19:56 | PCM.PROG ---
Progress Note - Progress Note for Day of Date of Exam: 07/18/20 - Subjective Subjective: IS BEING TREATED FOR PNEUMONIA DUE TO COVID-19 AND HYPOXIA. HE IS CURRENTLY ON THE MECHANICAL VENT. HIS SETTINGS ON THE VENT THIS MORNING ARE: A/C, VENT RATE 15, TIDAL VOLUME 500, PEAK FLOW 51, PEEP 15, FI02 80. HIS OXYGEN SATURATIONS HAVE BEEN 92-96% ON THE VENT THIS MORNING. ON EXAMINATION, HEART IS REGULAR IN RATE AND RHYTHM. BILATERAL LUNGS ARE NOTED WITH SCATTERED RALES THROUGHOUT. ABDOMEN IS ROUND, SOFT, AND NON-TENDER WITH NORMAL BOWEL SOUNDS NOTED IN ALL QUADRANTS. HIS VITALS THIS MORNING ARE: 98.4-75-32-92%-134/63. LABS WERE OBTAINED. ABNORMAL LAB VALUES INCLUDE THE FOLLOWING: WBC 16.6, RBC 3.32, HGB 10.3, HCT 31.3, PTT 84.6, CARBON DIOXIDE 36.4, BUN 25, CREATININE 0.66, GLUCOSE 239, AST 12, CRP 24.90, ALBUMIN 2.9. AN ABG WAS REPEATED TODAY AND REVEALED: PH 7.430, PC02 64, P02 66, HC03 42.5, 02 SAT 93, BASE EXCESS 15.3, A-A GRADIENT 424, FI02 80. SPUTUM CULTURES REVEALS GROWTH OF ABUNDANT YEAST. A CHEST XRAY WAS REPEATED THIS MORNING AND REVEALED: 1. Unchanged bronchopneumonia 2. Unchanged soft tissue emphysema and pneumomediastinum. HE IS CURRENTLY RECEIVING: PROCAL AT 40 ML/HR, ALBUMIN 25% IV DAILY, DIFLUCAN 200MG IV DAILY, LEVAQUIN 750MG IV DAILY, ZOSYN 4.5G IV TID, IVERMECTIN 18MG PO Q48H, HEPARIN IV PER PROTOCOL, DUONEBS TID, PULMICORT NEBS BID, MUCOMYST IN NEB [place], MORPHINE 1MG/HR IV, ROBITUSSIN DM 10 ML PO QID, TUSSIONEX 5ML PO Q12H PRN, SOLU-MEDROL 125MG IV Q8H, PEPCID 20MG PO BID, PROTONIX 40MG PO DAILY, CLONAZEPAM 0.5MG PO TID PRN, ASCORBIC ACID 1500MG IV Q6H, ZINC 220MG PO BID, VITAMIN A 10,000 UNITS PO DAILY, HUMULIN R SLIDING SCALE, AND HIS HOME MEDICATIONS WERE RESUMED. WE WILL CONTINUE WITH CURRENT PLAN OF CARE TODAY. OTHERWISE, WE WILL FOLLOW UP WITH AM LABS AND CONTINUE TO MONITOR. CRITICAL CARE TIME SPENT ON CLINICAL ASSESSMENT, REVIEWING LABS AND IMAGING, DECISION MAKING, DOCUMENTATION, AND SPEAKING WITH FAMILY MEMBERS WAS GREATER THAN 75 MINUTES. - Past Medical Family Social History Past Med/Fam/Surg Hx: No changes since H&P Allergies: Allergies No Known Drug Allergies Allergy (Verified 07/02/20 17:24) - Review of Systems ROS: No change since H&P - Vital Signs and I&O's Vital Signs: Temperature 99.6 F Pulse Rate [Left Brachial] 87 Pulse Rate 93 Respiratory Rate 31 Blood Pressure [Left Arm] 133/74 Blood Pressure 172/74 O2 Sat by Pulse Oximetry 92 Intake and Output: Intake & Output 07/16/20 07/17/20 07/18/20 07/19/20 11:59 11:59 11:59 11:59 Intake Total 1727 / 1727 2198 / 2198 4163 / 4163 2130 / 2130 Output Total 3300 / 3300 4375 / 4375 2550 / 2550 800 / 800 Balance -1573 / -1573 -2177 / -2177 1613 / 1613 1330 / 1330 - Physical Exam Oriented: Normal Eyes: Normal Ear: Normal Nose: Normal Throat: Normal Respiratory: Generalized, Diminished, Rales Cardiovascular: Normal : Normal Auscultation: Bowel Sounds: Normal Palpation: Normal Tenderness: Normal Skin: Normal Musculoskeletal: Normal Psychiatric: Normal Mood Description: Calm Affect: Normal Speech Pattern: Artificially Ventilated - Laboratory and Diagnostics Result Diagrams: 07/18/20 08:10 07/18/20 08:10 Labs: 07/16/20 01:33 Sputum - Expectorated Sputum Sputum Culture - Final 07/16/20 01:33 Sputum - Expectorated Sputum - Final 07/02/20 22:22 Blood Blood Culture - Final 07/02/20 20:38 Blood Blood Culture - Final Laboratory WBC 16.6 X10^3/uL (3.6-10.0) H 07/18/20 08:10 RBC 3.32 X10^6/uL (4.7-6.0) L 07/18/20 08:10 Hgb 10.3 g/dL (13.5-18.0) L 07/18/20 08:10 Hct 31.3 % (42.0-54.0) L 07/18/20 08:10 MCV 94.2 fL (80.0-100.0) 07/18/20 08:10 MCH 31.0 pg (27.0-34.0) 07/18/20 08:10 MCHC 32.9 g/dL (33.0-35.0) L 07/18/20 08:10 RDW 12.9 % (11.6-16.5) 07/18/20 08:10 Plt Count 164 X10^3/uL (150.0-450.0) 07/18/20 08:10 Plt Count Comment Adequate (ADEQUATE) 07/18/20 08:10 MPV 9.8 fL (7.4-11.0) 07/18/20 08:10 Neut % (Auto) 92.8 % (42.0-75.0) H 07/18/20 08:10 Lymph % (Auto) 1.2 % (21.0-51.0) L 07/18/20 08:10 [place] % (Auto) 5.6 % (0.0-13.0) 07/18/20 08:10 Eos % (Auto) 0.0 % (0.9-2.9) L 07/18/20 08:10 Baso % (Auto) 0.4 % (0.2-1.0) 07/18/20 08:10 Neut # (Auto) 15.4 x10^3/uL (2.2-4.8) H 07/18/20 08:10 Lymph # (Auto) 0.2 X10^3/uL (1.3-2.9) L 07/18/20 08:10 [place] # (Auto) 0.9 x10^3/uL (0.3-0.8) H 07/18/20 08:10 Eos # (Auto) 0.0 x10^3/uL (0.0-0.2) 07/18/20 08:10 Baso # (Auto) 0.1 X10^3/uL (0.0-0.1) 07/18/20 08:10 Absolute Nucleated RBC 0.0 /100WBC 07/18/20 08:10 Total Counted 100 07/18/20 08:10 Neutrophils % (Manual) 92 % (39-76) H 07/18/20 08:10 Band Neutrophils % 1 % (0-10) 07/16/20 04:50 Lymphocytes % (Manual) 3 % (13-43) L 07/18/20 08:10 Monocytes % (Manual) 5 % (4-9) 07/18/20 08:10 Basophils % (Manual) 1 % (0-1) 07/12/20 05:25 Plt Morphology Comment Normal (NORMAL) 07/18/20 08:10 RBC Morphology Normal (NORMAL) 07/18/20 08:10 PT 19.4 SECONDS (11.8-14.3) 07/16/20 04:50 INR Target Range - 07/16/20 04:50 INR 1.69 (0.8-1.3) H 07/16/20 04:50 APTT 49.2 SECONDS (22.9-36.5) H 07/18/20 14:15 PTT Comment - 07/18/20 14:15 D-Dimer 3.69 ug/ml (0.0-0.57) H* 07/16/20 13:30 Sample Site Artline 07/18/20 05:25 ABG pH 7.430 (7.35-7.45) 07/18/20 05:25 ABG pCO2 64.0 mmHg (35.0-45.0) H* 07/18/20 05:25 ABG pO2 66.0 mmHg (80.0-100.0) L 07/18/20 05:25 ABG HCO3 42.5 mmol/L (22-26) H* 07/18/20 05:25 ABG O2 Saturation 93.0 % (90-100) 07/18/20 05:25 ABG Base Excess 15.3 mmol/L (-2.0-2.0) H 07/18/20 05:25 Cipriano Test Na 07/18/20 05:25 A-a Gradient 424.0 mmHg 07/18/20 05:25 FiO2 80.0 07/18/20 05:25 Blood Gas Comments [facility] 07/18/20 05:25 Sodium 143 mmol/L (136-145) 07/18/20 08:10 Corrected Sodium 146 mmol/L (136-145) H 07/18/20 08:10 Potassium 4.3 mmol/L (3.5-5.1) 07/18/20 08:10 Chloride 103 mmol/L (98-107) 07/18/20 08:10 Carbon Dioxide 36.4 mmol/L (21-32) H 07/18/20 08:10 BUN 25 mg/dL (7-18) H 07/18/20 08:10 Creatinine 0.66 mg/dL (0.70-1.30) L 07/18/20 08:10 Est GFR (MDRD) Af Amer > 60 (>60) 07/18/20 08:10 Est GFR (MDRD) Non-Af > 60 (>60) 07/18/20 08:10 Glucose 239 mg/dL (65-99) H 07/18/20 08:10 POC Glucose (mg/dL) 186 mg/dL (65-99) H 07/18/20 16:39 Calcium 9.1 mg/dL (8.5-10.1) 07/18/20 08:10 Corrected Calcium 10.0 mg/dL (8.5-10.1) 07/18/20 08:10 Magnesium 1.7 mg/dL (1.7-2.9) 07/02/20 20:38 Ferritin 308 ng/mL (26-388) 07/13/20 04:39 Total Bilirubin 0.90 mg/dL (0.2-1.0) 07/18/20 08:10 AST 12 Units/L (15-37) L 07/18/20 08:10 ALT 18 Units/L (12-78) 07/18/20 08:10 Alkaline Phosphatase 61 Units/L (46-116) 07/18/20 08:10 Creatine Kinase 46 Units/L (39-308) 07/04/20 23:33 CK-MB (CK-2) < 1.0 ng/mL (0-4.0) 07/04/20 23:33 CK/CKMB % Calc 2.2 % (<4) 07/04/20 23:33 Troponin I < 0.02 ng/mL (0-1.5) 07/04/20 23:33 C-Reactive Protein 24.90 mg/L (0-3.0) H 07/18/20 08:10 B-Natriuretic Peptide 162 pg/mL (0-79) H 07/02/20 20:38 Total Protein 6.5 g/dL (6.4-8.2) 07/18/20 08:10 Albumin 2.9 g/dL (3.4-5.0) L 07/18/20 08:10 Globulin 3.6 g/dL (2.5-4.5) 07/18/20 08:10 Albumin/Globulin Ratio 0.8 Ratio (1.1-2.1) L 07/18/20 08:10 Specimen Type Catherized urine 07/13/20 18:45 Urine Color [place] (YELLOW) 07/13/20 18:45 Urine Appearance Clear (CLEAR) 07/13/20 18:45 Urine pH 6.5 (5.0 - 8.0) 07/13/20 18:45 Ur Specific [place] 1.015 (1.000-1.030) 07/13/20 18:45 Urine Protein 1+ (NEGATIVE) 07/13/20 18:45 Urine Glucose (UA) Negative (NEGATIVE) 07/13/20 18:45 Urine Ketones Negative (NEGATIVE) 07/13/20 18:45 Urine Occult Blood 3+ (NEGATIVE) 07/13/20 18:45 Urine Nitrite Negative (NEGATIVE) 07/13/20 18:45 Urine Bilirubin Negative (NEGATIVE) 07/13/20 18:45 Urine Urobilinogen 2+ (NORMAL) 07/13/20 18:45 Ur Leukocyte Esterase Negative (NEGATIVE) 07/13/20 18:45 Urine RBC 5-10 /HPF (0-3) A 07/13/20 18:45 Urine WBC None seen /HPF (0-5) 07/13/20 18:45 Ur Squamous Epith Cells Rare /HPF (NEGATIVE) 07/13/20 18:45 Urine Bacteria Negative /HPF (NEGATIVE) 07/13/20 18:45 Ur Culture Indicated? 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 (2) Hypoxia Status: Acute (3) HTN (hypertension) Status: Chronic Qualifiers: Hypertension type: essential hypertension Qualified Code(s): I10 - Essential (primary) hypertension (4) Hyperlipidemia Status: Chronic Qualifiers: Hyperlipidemia type: mixed hyperlipidemia Qualified Code(s): E78.2 - Mixed hyperlipidemia (5) Diabetes mellitus Status: Chronic Qualifiers: Diabetes mellitus type: type 2 Diabetes mellitus complication status: without complication
[2020-07-18] MEDS: SNACK - Diabetic Appropriate PO SCH (22:17)
[2020-07-19] MEDS: NS 500 ML IV 500 ML IV SCH ×3 (03:08→18:18)
[2020-07-19] MEDS: ASCORBIC ACID INJ MULTI-DOSE VIAL 1,500 MG in NS 50 ML IV 50 ML IV SCH ×4 (03:08→21:35)
[2020-07-19] MEDS: HEPARIN SODIUM IN D5W 25,000 UNITS/500 ML BAG IV PRN ×2 (04:30→17:54)
[2020-07-19 05:32] LABS: ABG BASE EXCESS 15.9 mmol/L (-2.0-2.0)
[2020-07-19 05:33] LABS: ABG HCO3 43.5 mmol/L (22-26)
[2020-07-19] MEDS: DIPRIVAN PREMIX 1 GRAM IV 1,000 MG/100 ML VIAL IV PRN ×4 (05:49→18:09)
[2020-07-19] MEDS: DUONEB 0.5 MG/3 MG (3 mL) NEB SCH ×4 (05:50→22:19)
[2020-07-19 06:07] LABS: BASOPHILS # (AUTO) 0.1 X10^3/uL (0.0-0.1); BASOPHILS % (AUTO) 0.7 % (0.2-1.0); HEMOGLOBIN 9.1 g/dL (13.5-18.0); LYMPHOCYTES # (AUTO) 0.2 X10^3/uL (1.3-2.9); LYMPHOCYTES % (AUTO) 1.3 % (21.0-51.0); MEAN CORPUSCULAR HEMOGLOBIN 31.4 pg (27.0-34.0); MEAN CORPUSCULAR HGB CONC 33.6 g/dL (33.0-35.0); MEAN CORPUSCULAR VOLUME 93.5 fL (80.0-100.0); MEAN PLATELET VOLUME 10.3 fL (7.4-11.0); MONOCYTES # (AUTO) 0.9 x10^3/uL (0.3-0.8); NEUTROPHILS # (AUTO) 13.9 x10^3/uL (2.2-4.8); PLATELET COUNT 134 X10^3/uL (150.0-450.0); RED BLOOD COUNT 2.89 X10^6/uL (4.7-6.0); WHITE BLOOD COUNT 15.1 X10^3/uL (3.6-10.0)
[2020-07-19 06:14] LABS: ALANINE AMINOTRANSFERASE 14 Units/L (12-78); ALBUMIN 2.8 g/dL (3.4-5.0); ALKALINE PHOSPHATASE 50 Units/L (46-116); ASPARTATE AMINO TRANSFERASE 10 Units/L (15-37); BLOOD UREA NITROGEN 25 mg/dL (7-18); CARBON DIOXIDE 37.6 mmol/L (21-32); CHLORIDE 106 mmol/L (98-107); COR NA(FOR HYPERGLY) 149 mmol/L (136-145); CREATININE 0.63 mg/dL (0.70-1.30); SODIUM 146 mmol/L (136-145); TOTAL PROTEIN 5.9 g/dL (6.4-8.2); eGFR NON BLACK RACES > 60 (>60)
[2020-07-19] MEDS: SOLU-Medrol 125 MG VIAL IVP SCH ×3 (06:28→21:35)
[2020-07-19] MEDS ORDERED: VERSED ONE (06:31)
[2020-07-19] MEDS ORDERED: NS 100 ML IV 100 ML IV ONE (06:32)
[2020-07-19] MEDS: VERSED 100 MG in NS 100 ML IV 80 ML IV PRN ×2 (06:40→19:45)
--- NOTE | 2020-07-19 06:49 | RAD ---
HISTORYVENTILATOR PROTOCOLSTUDYCHEST, 1 VIEWCOMPARISONOne day prior.TECHNIQUEAP view of the chestFINDINGSET tube in good position. Right IJ central line in good position.Cardiac and mediastinal contours are within normal limits. Worsened appearance of extends is subcutaneous emphysema now extending further into both arms. There is pneumomediastinum. No significant change in bilateral airspace and interstitial opacities. Interface at the left upper lung pleural surface is favored to be due to subcutaneous emphysema rather than pneumothorax. No pleural effusion.IMPRESSIONWorsened subcutaneous emphysema with pneumomediastinum. Stable bilateral airspace disease. Interface in the left upper hemithorax favored to be due to subcutaneous emphysema rather than small pneumothorax.Electronically signed by: Reggie Keita (Jul 19, 2020 06:47:50)
[2020-07-19] MEDS: HumuLIN R SUBCUT PRN ×4 (06:51→21:35)
[2020-07-19 06:56] LABS: BAND NEUTROPHILS % 1 % (0-10); PLATELET MORPHOLOGY COMMENT NORMAL (NORMAL)
[2020-07-19] MEDS: ALBUMIN HUMAN 25%- 100 ML 100 ML IV SCH (09:01)
[2020-07-19] MEDS: LEVAQUIN PREMIX IV 750 MG 750 MG/150 ML BAG IV SCH (09:02)
[2020-07-19] MEDS: DIFLUCAN 200 MG IV PREMIX* 200 MG/100 ML BAG IV SCH (09:02)
[2020-07-19] MEDS: LACRI-LUBE S.O.P. AFFEYE SCH ×2 (09:03→21:35)
[2020-07-19] MEDS: RHINOCORT ALLERGY NASAL SPRAY ENOSTRIL SCH ×2 (09:05→22:58)
[2020-07-19] MEDS: THIAMINE HCL INJ IVP SCH ×2 (09:05→21:35)
[2020-07-19] MEDS: PROTONIX INJ 40 MG VIAL IVP SCH (09:05)
[2020-07-19] MEDS: PULMICORT NEB TX 0.5 MG NEB SCH ×2 (09:50→22:19)
[2020-07-19] MEDS: PEPCID 20 MG IV PREMIX IV SCH ×2 (10:00→21:35)
[2020-07-19] MEDS: PROCALAMINE 3 % 1,000 ML IV SCH (17:56)
[2020-07-19 21:23] VITALS: BMI 27.2
--- NOTE | 2020-07-19 21:29 | PCM.PROG ---
Progress Note - Progress Note for Day of Date of Exam: 07/19/20 - Subjective Subjective: IS BEING TREATED FOR PNEUMONIA DUE TO COVID-19 AND HYPOXIA. HE IS CURRENTLY ON THE MECHANICAL VENT. HIS SETTINGS ON THE VENT THIS MORNING ARE: A/C, VENT RATE 15, TIDAL VOLUME 500, PEAK FLOW 51, PEEP 15, FI02 80. HIS OXYGEN SATURATIONS HAVE BEEN 87-91% ON THE VENT THIS MORNING. ON EXAMINATION, HEART IS REGULAR IN RATE AND RHYTHM. BILATERAL LUNGS ARE NOTED WITH SCATTERED RALES THROUGHOUT. ABDOMEN IS ROUND, SOFT, AND NON-TENDER WITH NORMAL BOWEL SOUNDS NOTED IN ALL QUADRANTS. HIS VITALS THIS MORNING ARE: 99.7-76-35-87%-165/74. LABS WERE OBTAINED. ABNORMAL LAB VALUES INCLUDE THE FOLLOWING: WBC 15.1, RBC 2.89, HGB 9.1, HCT 27.0, PLT COUNT 134, SODIUM 146, CARBON DIOXIDE 37.6, BUN 25, CREATININE 0.63, GLUCOSE 240, AST 10, CRP 12.80, TOTAL PROTEIN 5.9, ALBUMIN 2.8. AN ABG WAS REPEATED TODAY AND REVEALED: PH 7.420, PC02 67, P02 69, HC03 43.5, 02 SAT 94, A-A GRADIENT 418, FI02 80. SPUTUM CULTURES REVEALS GROWTH OF ABUNDANT YEAST. A CHEST XRAY WAS REPEATED THIS MORNING AND REVEALED: Worsened subcutaneous emphysema with pneumomediastinum. Stable bilateral airspace disease. Interface in the left upper hemithorax favored to be due to subcutaneous emphysema rather than small pneumothorax. WE CONSULTED DUE TO FINDINGS ON CHEST XRAY. HE RECOMMENDED DECREASING THE PEEP ON THE VENTILLATOR. HE IS CURRENTLY RECEIVING: PROCAL AT 40 ML/HR, ALBUMIN 25% IV DAILY, DIFLUCAN 200MG IV DAILY, LEVAQUIN 750MG IV DAILY, ZOSYN 4.5G IV TID, IVERMECTIN 18MG PO Q48H, HEPARIN IV PER PROTOCOL, DUONEBS TID, PULMICORT NEBS BID, MUCOMYST IN NEB [place], MORPHINE 1MG/HR IV, ROBITUSSIN DM 10 ML PO QID, TUSSIONEX 5ML PO Q12H PRN, SOLU-MEDROL 125MG IV Q8H, PEPCID 20MG PO BID, PROTONIX 40MG PO DAILY, CLONAZEPAM 0.5MG PO TID PRN, ASCORBIC ACID 1500MG IV Q6H, ZINC 220MG PO BID, VITAMIN A 10,000 UNITS PO DAILY, HUMULIN R SLIDING SCALE, AND HIS HOME MEDICATIONS WERE RESUMED. TODAY, WE WILL DECREASE THE PEEP AND PRESSURES ON THE VENT. OTHERWISE, WE WILL CONTINUE WITH CURRENT PLAN OF CARE TODAY. WE WILL FOLLOW UP WITH AM LABS AND CONTINUE TO MONITOR. CRITICAL CARE TIME SPENT ON CLINICAL ASSESSMENT, REVIEWING LABS AND IMAGING, DECISION MAKING, DOCUMENTATION, AND SPEAKING WITH FAMILY MEMBERS WAS GREATER THAN 75 MINUTES. - Past Medical Family Social History Past Med/Fam/Surg Hx: No changes since H&P Allergies: Allergies No Known Drug Allergies Allergy (Verified 07/02/20 17:24) - Review of Systems ROS: No change since H&P - Vital Signs and I&O's Vital Signs: Temperature 99.9 F Pulse Rate [Left Brachial] 87 Pulse Rate 80 Respiratory Rate 38 Blood Pressure [Left Arm] 133/74 Blood Pressure 148/70 O2 Sat by Pulse Oximetry 91 Intake and Output: Intake & Output 07/17/20 07/18/20 07/19/20 07/20/20 11:59 11:59 11:59 11:59 Intake Total 2198 / 2198 4163 / 4163 4805 / 4805 2157 / 2157 Output Total 4375 / 4375 2550 / 2550 2300 / 2300 700 / 700 Balance -2177 / -2177 1613 / 1613 2505 / 2505 1457 / 1457 - Physical Exam Oriented: Normal Eyes: Normal Ear: Normal Nose: Normal Throat: Normal Respiratory: Generalized, Diminished, Rales Cardiovascular: Normal : Normal Auscultation: Bowel Sounds: Normal Palpation: Normal Tenderness: Normal Skin: Normal Musculoskeletal: Normal Psychiatric: Normal Mood Description: Calm Affect: Normal Speech Pattern: Artificially Ventilated - Laboratory and Diagnostics Result Diagrams: 07/19/20 05:15 07/19/20 05:15 Labs: 07/16/20 01:33 Sputum - Expectorated Sputum Sputum Culture - Final 07/16/20 01:33 Sputum - Expectorated Sputum - Final 07/02/20 22:22 Blood Blood Culture - Final 07/02/20 20:38 Blood Blood Culture - Final Laboratory WBC 15.1 X10^3/uL (3.6-10.0) H 07/19/20 05:15 RBC 2.89 X10^6/uL (4.7-6.0) L 07/19/20 05:15 Hgb 9.1 g/dL (13.5-18.0) L 07/19/20 05:15 Hct 27.0 % (42.0-54.0) L 07/19/20 05:15 MCV 93.5 fL (80.0-100.0) 07/19/20 05:15 MCH 31.4 pg (27.0-34.0) 07/19/20 05:15 MCHC 33.6 g/dL (33.0-35.0) 07/19/20 05:15 RDW 13.0 % (11.6-16.5) 07/19/20 05:15 Plt Count 134 X10^3/uL (150.0-450.0) L 07/19/20 05:15 Plt Count Comment Decreased (ADEQUATE) 07/19/20 05:15 MPV 10.3 fL (7.4-11.0) 07/19/20 05:15 Neut % (Auto) 92.0 % (42.0-75.0) H 07/19/20 05:15 Lymph % (Auto) 1.3 % (21.0-51.0) L 07/19/20 05:15 [place] % (Auto) 6.0 % (0.0-13.0) 07/19/20 05:15 Eos % (Auto) 0.0 % (0.9-2.9) L 07/19/20 05:15 Baso % (Auto) 0.7 % (0.2-1.0) 07/19/20 05:15 Neut # (Auto) 13.9 x10^3/uL (2.2-4.8) H 07/19/20 05:15 Lymph # (Auto) 0.2 X10^3/uL (1.3-2.9) L 07/19/20 05:15 [place] # (Auto) 0.9 x10^3/uL (0.3-0.8) H 07/19/20 05:15 Eos # (Auto) 0.0 x10^3/uL (0.0-0.2) 07/19/20 05:15 Baso # (Auto) 0.1 X10^3/uL (0.0-0.1) 07/19/20 05:15 Absolute Nucleated RBC 0.1 /100WBC 07/19/20 05:15 Total Counted 100 07/19/20 05:15 Neutrophils % (Manual) 92 % (39-76) H 07/19/20 05:15 Band Neutrophils % 1 % (0-10) 07/19/20 05:15 Lymphocytes % (Manual) 3 % (13-43) L 07/19/20 05:15 Monocytes % (Manual) 4 % (4-9) 07/19/20 05:15 Basophils % (Manual) 1 % (0-1) 07/12/20 05:25 Plt Morphology Comment Normal (NORMAL) 07/19/20 05:15 RBC Morphology Normal (NORMAL) 07/19/20 05:15 PT 19.4 SECONDS (11.8-14.3) 07/16/20 04:50 INR Target Range - 07/16/20 04:50 INR 1.69 (0.8-1.3) H 07/16/20 04:50 APTT 85.8 SECONDS (22.9-36.5) H 07/19/20 05:15 PTT Comment - 07/19/20 05:15 D-Dimer 3.69 ug/ml (0.0-0.57) H* 07/16/20 13:30 Sample Site Artline 07/19/20 05:27 ABG pH 7.420 (7.35-7.45) 07/19/20 05:27 ABG pCO2 67.0 mmHg (35.0-45.0) H* 07/19/20 05:27 ABG pO2 69.0 mmHg (80.0-100.0) L 07/19/20 05:27 ABG HCO3 43.5 mmol/L (22-26) H* 07/19/20 05:27 ABG O2 Saturation 94.0 % (90-100) 07/19/20 05:27 ABG Base Excess 15.9 mmol/L (-2.0-2.0) H 07/19/20 05:27 Cipriano Test Na 07/19/20 05:27 A-a Gradient 418.0 mmHg 07/19/20 05:27 FiO2 80.0 07/19/20 05:27 Blood Gas Comments Ez well 07/19/20 05:27 Sodium 146 mmol/L (136-145) H 07/19/20 05:15 Corrected Sodium 149 mmol/L (136-145) H 07/19/20 05:15 Potassium 4.4 mmol/L (3.5-5.1) 07/19/20 05:15 Chloride 106 mmol/L (98-107) 07/19/20 05:15 Carbon Dioxide 37.6 mmol/L (21-32) H 07/19/20 05:15 BUN 25 mg/dL (7-18) H 07/19/20 05:15 Creatinine 0.63 mg/dL (0.70-1.30) L 07/19/20 05:15 Est GFR (MDRD) Af Amer > 60 (>60) 07/19/20 05:15 Est GFR (MDRD) Non-Af > 60 (>60) 07/19/20 05:15 Glucose 240 mg/dL (65-99) H 07/19/20 05:15 POC Glucose (mg/dL) 214 mg/dL (65-99) H 07/19/20 17:03 Calcium 9.0 mg/dL (8.5-10.1) 07/19/20 05:15 Corrected Calcium 10.0 mg/dL (8.5-10.1) 07/19/20 05:15 Magnesium 1.7 mg/dL (1.7-2.9) 07/02/20 20:38 Ferritin 308 ng/mL (26-388) 07/13/20 04:39 Total Bilirubin 0.70 mg/dL (0.2-1.0) 07/19/20 05:15 AST 10 Units/L (15-37) L 07/19/20 05:15 ALT 14 Units/L (12-78) 07/19/20 05:15 Alkaline Phosphatase 50 Units/L (46-116) 07/19/20 05:15 Creatine Kinase 46 Units/L (39-308) 07/04/20 23:33 CK-MB (CK-2) < 1.0 ng/mL (0-4.0) 07/04/20 23:33 CK/CKMB % Calc 2.2 % (<4) 07/04/20 23:33 Troponin I < 0.02 ng/mL (0-1.5) 07/04/20 23:33 C-Reactive Protein 12.80 mg/L (0-3.0) H 07/19/20 05:15 B-Natriuretic Peptide 162 pg/mL (0-79) H 07/02/20 20:38 Total Protein 5.9 g/dL (6.4-8.2) L 07/19/20 05:15 Albumin 2.8 g/dL (3.4-5.0) L 07/19/20 05:15 Globulin 3.1 g/dL (2.5-4.5) 07/19/20 05:15 Albumin/Globulin Ratio 0.9 Ratio (1.1-2.1) L 07/19/20 05:15 Specimen Type Catherized urine 07/13/20 18:45 Urine Color [place] (YELLOW) 07/13/20 18:45 Urine Appearance Clear (CLEAR) 07/13/20 18:45 Urine pH 6.5 (5.0 - 8.0) 07/13/20 18:45 Ur Specific [place] 1.015 (1.000-1.030) 07/13/20 18:45 Urine Protein 1+ (NEGATIVE) 07/13/20 18:45 Urine Glucose (UA) Negative (NEGATIVE) 07/13/20 18:45 Urine Ketones Negative (NEGATIVE) 07/13/20 18:45 Urine Occult Blood 3+ (NEGATIVE) 07/13/20 18:45 Urine Nitrite Negative (NEGATIVE) 07/13/20 18:45 Urine Bilirubin Negative (NEGATIVE) 07/13/20 18:45 Urine Urobilinogen 2+ (NORMAL) 07/13/20 18:45 Ur Leukocyte Esterase Negative (NEGATIVE) 07/13/20 18:45 Urine RBC 5-10 /HPF (0-3) A 07/13/20 18:45 Urine WBC None seen /HPF (0-5) 07/13/20 18:45 Ur Squamous Epith Cells Rare /HPF (NEGATIVE) 07/13/20 18:45 Urine Bacteria Negative /HPF (NEGATIVE) 07/13/20 18:45 Ur Culture Indicated? 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 (2) Hypoxia Status: Acute (3) HTN (hypertension) Status: Chronic Qualifiers: Hypertension type: essential hypertension Qualified Code(s): I10 - Essential (primary) hypertension (4) Hyperlipidemia Status: Chronic Qualifiers: Hyperlipidemia type: mixed hyperlipidemia Qualified Code(s): E78.2 - Mixed hyperlipidemia (5) Diabetes mellitus Status: Chronic Qualifiers: Diabetes mellitus type: type 2 Diabetes mellitus complication status: without complication
[2020-07-20] MEDS: DIPRIVAN PREMIX 1 GRAM IV 1,000 MG/100 ML VIAL IV PRN ×3 (00:30→13:16)
[2020-07-20] MEDS: ASCORBIC ACID INJ MULTI-DOSE VIAL 1,500 MG in NS 50 ML IV 50 ML IV SCH ×4 (03:18→21:47)
[2020-07-20] MEDS: NS 500 ML IV 500 ML IV SCH (03:19)
[2020-07-20 05:41] LABS: ABG BASE EXCESS 18.9 mmol/L (-2.0-2.0)
[2020-07-20 06:19] LABS: BASOPHILS % (AUTO) 0.2 % (0.2-1.0); EOSINOPHILS % (AUTO) 0.2 % (0.9-2.9); HEMATOCRIT 28.8 % (42.0-54.0); HEMOGLOBIN 9.5 g/dL (13.5-18.0); LYMPHOCYTES # (AUTO) 0.2 X10^3/uL (1.3-2.9); LYMPHOCYTES % (AUTO) 0.8 % (21.0-51.0); MEAN CORPUSCULAR HEMOGLOBIN 31.5 pg (27.0-34.0); MEAN CORPUSCULAR HGB CONC 33.1 g/dL (33.0-35.0); MEAN CORPUSCULAR VOLUME 95.1 fL (80.0-100.0); MEAN PLATELET VOLUME 10.1 fL (7.4-11.0); MONOCYTES # (AUTO) 1.6 x10^3/uL (0.3-0.8); MONOCYTES % (AUTO) 5.9 % (0.0-13.0); NEUTROPHILS # (AUTO) 24.5 x10^3/uL (2.2-4.8); NEUTROPHILS % (AUTO) 92.9 % (42.0-75.0); PLATELET COUNT 141 X10^3/uL (150.0-450.0); RED BLOOD COUNT 3.03 X10^6/uL (4.7-6.0); RED CELL DISTRIBUTION WIDTH 13.3 % (11.6-16.5); WHITE BLOOD COUNT 26.4 X10^3/uL (3.6-10.0)
[2020-07-20] MEDS: DUONEB 0.5 MG/3 MG (3 mL) NEB SCH ×3 (06:38→20:30)
[2020-07-20 06:48] LABS: ALANINE AMINOTRANSFERASE 12 Units/L (12-78); ALBUMIN 3.1 g/dL (3.4-5.0); ALKALINE PHOSPHATASE 60 Units/L (46-116); ASPARTATE AMINO TRANSFERASE 13 Units/L (15-37); BLOOD UREA NITROGEN 24 mg/dL (7-18); CALCIUM 9.1 mg/dL (8.5-10.1); CHLORIDE 108 mmol/L (98-107); COR CA(FOR HYPOALB) 9.8 mg/dL (8.5-10.1); COR NA(FOR HYPERGLY) 151 mmol/L (136-145); SODIUM 148 mmol/L (136-145); TOTAL PROTEIN 6.5 g/dL (6.4-8.2); eGFR NON BLACK RACES > 60 (>60)
[2020-07-20] MEDS: SOLU-Medrol 125 MG VIAL IVP SCH ×3 (06:54→21:50)
[2020-07-20] MEDS: HEPARIN SODIUM IN D5W 25,000 UNITS/500 ML BAG IV PRN ×2 (06:58→19:36)
[2020-07-20] MEDS: VERSED 100 MG in NS 100 ML IV 80 ML IV PRN ×2 (06:59→20:32)
[2020-07-20 07:02] LABS: CARBON DIOXIDE 41.9 mmol/L (21-32)
[2020-07-20] MEDS: HumuLIN R SUBCUT PRN ×4 (07:12→21:40)
--- NOTE | 2020-07-20 07:34 | RAD ---
HISTORYSOBSTUDYCHEST, 1 [id number]/07/2021.TECHNIQUEAP view of the chestFINDINGSET tube in good position. Right IJ central line in good position.Cardiac and mediastinal contours are within normal limits. Persistent severe subcutaneous emphysema in the neck, chest and upper extremities. Persistent pneumomediastinum. No significant change in bilateral airspace and interstitial opacities. Pleural interface in the left upper and medial lung is slightly larger than prior. No large pleural effusion.IMPRESSIONPleural interface with gas between the lung and chest wall appears slightly larger than prior and left upper medial lung. This could be a small to moderate left pneumothorax or due to gas tracking along the parietal pleural interface. Consider CT for further evaluation.Electronically signed by: Reggie Keita (Jul 20, 2020 07:33:19)
[2020-07-20 07:59] LABS: BAND NEUTROPHILS % 2 % (0-10); PLATELET MORPHOLOGY COMMENT NORMAL (NORMAL)
[2020-07-20] MEDS: ALBUMIN HUMAN 25%- 100 ML 100 ML IV SCH (08:58)
[2020-07-20] MEDS: LEVAQUIN PREMIX IV 750 MG 750 MG/150 ML BAG IV SCH (08:59)
[2020-07-20] MEDS: PEPCID 20 MG IV PREMIX IV SCH ×2 (08:59→21:48)
[2020-07-20] MEDS: DIFLUCAN 200 MG IV PREMIX* 200 MG/100 ML BAG IV SCH (08:59)
[2020-07-20] MEDS: PROTONIX INJ 40 MG VIAL IVP SCH (09:00)
[2020-07-20] MEDS: PULMICORT NEB TX 0.5 MG NEB SCH ×2 (09:00→20:30)
[2020-07-20] MEDS: RHINOCORT ALLERGY NASAL SPRAY ENOSTRIL SCH ×2 (09:00→21:49)
[2020-07-20] MEDS: THIAMINE HCL INJ IVP SCH ×2 (09:00→21:50)
[2020-07-20] MEDS: LACRI-LUBE S.O.P. AFFEYE SCH ×2 (09:00→21:48)
--- NOTE | 2020-07-20 12:15 | PCM.PROG ---
Progress Note - Progress Note for Day of Date of Exam: 07/20/20 - Subjective Subjective: IS BEING TREATED FOR PNEUMONIA DUE TO COVID-19 AND HYPOXIA. HE IS CURRENTLY ON THE MECHANICAL VENT. HIS SETTINGS ON THE VENT THIS MORNING ARE: A/C, VENT RATE 25, TIDAL VOLUME 450, PEAK FLOW 40, PEEP 12, FI02 80. HIS OXYGEN SATURATIONS HAVE BEEN 88-92% ON THE VENT THIS MORNING. ON EXAMINATION, HEART IS REGULAR IN RATE AND RHYTHM. BILATERAL LUNGS ARE NOTED WITH SCATTERED RALES THROUGHOUT. ABDOMEN IS ROUND, SOFT, AND NON-TENDER WITH NORMAL BOWEL SOUNDS NOTED IN ALL QUADRANTS. HIS VITALS THIS MORNING ARE: 99.3-96-40-89%-143/68. LABS WERE OBTAINED. ABNORMAL LAB VALUES INCLUDE THE FOLLOWING: WBC 26.4, RBC 3.03, HGB 9.5, HCT 28.8, PLT COUNT 141, D-DIMER 2.11, SODIUM 148, CHLORIDE 108, CARBON DIOXIDE 41.9, BUN 24, CREATININE 0.60, GLUCOSE 245, AST 13, CRP 22.80, ALBUMIN 3.1. AN ABG WAS REPEATED TODAY AND REVEALED: PH 7.270, PC02 111, P02 62, HC03 51, 02 SAT 88, BASE EXCESS 18.9, A-A GRADIENT 512, FI02 100. SPUTUM CULTURES REVEALS GROWTH OF ABUNDANT YEAST. A CHEST XRAY WAS REPEATED THIS MORNING AND REVEALED: Pleural interface with gas between the lung and chest wall appears slightly larger than prior and left upper medial lung. This could be a small to moderate left pneumothorax or due to gas tracking along the parietal pleural interface. Consider CT for further evaluation. HE IS CURRENTLY RECEIVING: PROCAL AT 40 ML/HR, ALBUMIN 25% IV DAILY, DIFLUCAN 200MG IV DAILY, LEVAQUIN 750MG IV DAILY, ZOSYN 4.5G IV TID, HEPARIN IV PER PROTOCOL, DUONEBS TID, PULMICORT NEBS BID, MUCOMYST IN NEB [place], MORPHINE 1MG/HR IV, TUSSIONEX 5ML PO Q12H PRN, SOLU-MEDROL 125MG IV Q8H, PEPCID 20MG IV BID, PROTONIX 40MG IV DAILY, ASCORBIC ACID 1500MG IV Q6H, HUMULIN R SLIDING SCALE, VERSED DRIP, AND DIPROVAN DRIP FOR SEDATION. WE WILL CONTINUE WITH CURRENT PLAN OF CARE TODAY. OTHERWISE, WE WILL FOLLOW UP WITH AM LABS AND CONTINUE TO MONITOR. CRITICAL CARE TIME SPENT ON CLINICAL ASSESSMENT, REVIEWING LABS AND IMAGING, DECISION MAKING, DOCUMENTATION, AND SPEAKING WITH FAMILY MEMBERS WAS GREATER THAN 75 MINUTES. - Past Medical Family Social History Past Med/Fam/Surg Hx: No changes since H&P Allergies: Allergies No Known Drug Allergies Allergy (Verified 07/02/20 17:24) - Review of Systems ROS: No change since H&P - Vital Signs and I&O's Vital Signs: Temperature 99.3 F Pulse Rate [Left Brachial] 87 Pulse Rate 97 Respiratory Rate 52 Blood Pressure [Left Arm] 133/74 Blood Pressure 155/76 O2 Sat by Pulse Oximetry 89 Intake and Output: Intake & Output 07/18/20 07/19/20 07/20/20 07/21/20 11:59 11:59 11:59 11:59 Intake Total 4163 / 4163 4805 / 4805 4682 / 4682 Output Total 2550 / 2550 2300 / 2300 2725 / 2725 Balance 1613 / 1613 2505 / 2505 195 / 1956 - Physical Exam Oriented: Normal Eyes: Normal Ear: Normal Nose: Normal Throat: Normal Respiratory: Generalized, Diminished, Rales Cardiovascular: Normal : Normal Auscultation: Bowel Sounds: Normal Palpation: Normal Tenderness: Normal Skin: Normal Musculoskeletal: Normal Psychiatric: Normal Mood Description: Calm Affect: Normal Speech Pattern: Artificially Ventilated - Laboratory and Diagnostics Result Diagrams: 07/20/20 05:11 07/20/20 05:11 Labs: 07/16/20 01:33 Sputum - Expectorated Sputum Sputum Culture - Final 07/16/20 01:33 Sputum - Expectorated Sputum - Final 07/02/20 22:22 Blood Blood Culture - Final 07/02/20 20:38 Blood Blood Culture - Final Laboratory WBC 26.4 X10^3/uL (3.6-10.0) H D 07/20/20 05:11 RBC 3.03 X10^6/uL (4.7-6.0) L 07/20/20 05:11 Hgb 9.5 g/dL (13.5-18.0) L 07/20/20 05:11 Hct 28.8 % (42.0-54.0) L 07/20/20 05:11 MCV 95.1 fL (80.0-100.0) 07/20/20 05:11 MCH 31.5 pg (27.0-34.0) 07/20/20 05:11 MCHC 33.1 g/dL (33.0-35.0) 07/20/20 05:11 RDW 13.3 % (11.6-16.5) 07/20/20 05:11 Plt Count 141 X10^3/uL (150.0-450.0) L 07/20/20 05:11 Plt Count Comment Decreased (ADEQUATE) 07/20/20 05:11 MPV 10.1 fL (7.4-11.0) 07/20/20 05:11 Neut % (Auto) 92.9 % (42.0-75.0) H 07/20/20 05:11 Lymph % (Auto) 0.8 % (21.0-51.0) L 07/20/20 05:11 [place] % (Auto) 5.9 % (0.0-13.0) 07/20/20 05:11 Eos % (Auto) 0.2 % (0.9-2.9) L 07/20/20 05:11 Baso % (Auto) 0.2 % (0.2-1.0) 07/20/20 05:11 Neut # (Auto) 24.5 x10^3/uL (2.2-4.8) H 07/20/20 05:11 Lymph # (Auto) 0.2 X10^3/uL (1.3-2.9) L 07/20/20 05:11 [place] # (Auto) 1.6 x10^3/uL (0.3-0.8) H 07/20/20 05:11 Eos # (Auto) 0.0 x10^3/uL (0.0-0.2) 07/20/20 05:11 Baso # (Auto) 0.0 X10^3/uL (0.0-0.1) 07/20/20 05:11 Absolute Nucleated RBC 0.0 /100WBC 07/20/20 05:11 Total Counted 100 07/20/20 05:11 Neutrophils % (Manual) 94 % (39-76) H 07/20/20 05:11 Band Neutrophils % 2 % (0-10) 07/20/20 05:11 Lymphocytes % (Manual) 0 % (13-43) L 07/20/20 05:11 Monocytes % (Manual) 4 % (4-9) 07/20/20 05:11 Basophils % (Manual) 1 % (0-1) 07/12/20 05:25 Plt Morphology Comment Normal (NORMAL) 07/20/20 05:11 RBC Morphology Normal (NORMAL) 07/20/20 05:11 PT 19.4 SECONDS (11.8-14.3) 07/16/20 04:50 INR Target Range - 07/16/20 04:50 INR 1.69 (0.8-1.3) H 07/16/20 04:50 APTT 93.1 SECONDS (22.9-36.5) H 07/20/20 05:11 PTT Comment - 07/20/20 05:11 D-Dimer 2.11 ug/ml (0.0-0.57) H* 07/20/20 05:11 Sample Site A line 07/20/20 05:00 ABG pH 7.270 (7.35-7.45) L 07/20/20 05:00 ABG pCO2 111.0 mmHg (35.0-45.0) H* 07/20/20 05:00 ABG pO2 62.0 mmHg (80.0-100.0) L 07/20/20 05:00 ABG HCO3 51.0 mmol/L (22-26) H* 07/20/20 05:00 ABG O2 Saturation 88.0 % (90-100) L 07/20/20 05:00 ABG Base Excess 18.9 mmol/L (-2.0-2.0) H 07/20/20 05:00 Cipriano Test Na 07/20/20 05:00 A-a Gradient 512.0 mmHg 07/20/20 05:00 FiO2 100.0 07/20/20 05:00 Blood Gas Comments Ez well sw 07/20/20 05:00 Sodium 148 mmol/L (136-145) H 07/20/20 05:11 Corrected Sodium 151 mmol/L (136-145) H 07/20/20 05:11 Potassium 4.5 mmol/L (3.5-5.1) 07/20/20 05:11 Chloride 108 mmol/L (98-107) H 07/20/20 05:11 Carbon Dioxide 41.9 mmol/L (21-32) H* 07/20/20 05:11 BUN 24 mg/dL (7-18) H 07/20/20 05:11 Creatinine 0.60 mg/dL (0.70-1.30) L 07/20/20 05:11 Est GFR (MDRD) Af Amer > 60 (>60) 07/20/20 05:11 Est GFR (MDRD) Non-Af > 60 (>60) 07/20/20 05:11 Glucose 245 mg/dL (65-99) H 07/20/20 05:11 POC Glucose (mg/dL) 266 mg/dL (65-99) H 07/20/20 10:29 Calcium 9.1 mg/dL (8.5-10.1) 07/20/20 05:11 Corrected Calcium 9.8 mg/dL (8.5-10.1) 07/20/20 05:11 Magnesium 1.7 mg/dL (1.7-2.9) 07/02/20 20:38 Ferritin 308 ng/mL (26-388) 07/13/20 04:39 Total Bilirubin 0.80 mg/dL (0.2-1.0) 07/20/20 05:11 AST 13 Units/L (15-37) L 07/20/20 05:11 ALT 12 Units/L (12-78) 07/20/20 05:11 Alkaline Phosphatase 60 Units/L (46-116) 07/20/20 05:11 Creatine Kinase 46 Units/L (39-308) 07/04/20 23:33 CK-MB (CK-2) < 1.0 ng/mL (0-4.0) 07/04/20 23:33 CK/CKMB % Calc 2.2 % (<4) 07/04/20 23:33 Troponin I < 0.02 ng/mL (0-1.5) 07/04/20 23:33 C-Reactive Protein 22.80 mg/L (0-3.0) H 07/20/20 05:11 B-Natriuretic Peptide 162 pg/mL (0-79) H 07/02/20 20:38 Total Protein 6.5 g/dL (6.4-8.2) 07/20/20 05:11 Albumin 3.1 g/dL (3.4-5.0) L 07/20/20 05:11 Globulin 3.4 g/dL (2.5-4.5) 07/20/20 05:11 Albumin/Globulin Ratio 0.9 Ratio (1.1-2.1) L 07/20/20 05:11 Specimen Type Catherized urine 07/13/20 18:45 Urine Color [place] (YELLOW) 07/13/20 18:45 Urine Appearance Clear (CLEAR) 07/13/20 18:45 Urine pH 6.5 (5.0 - 8.0) 07/13/20 18:45 Ur Specific [place] 1.015 (1.000-1.030) 07/13/20 18:45 Urine Protein 1+ (NEGATIVE) 07/13/20 18:45 Urine Glucose (UA) Negative (NEGATIVE) 07/13/20 18:45 Urine Ketones Negative (NEGATIVE) 07/13/20 18:45 Urine Occult Blood 3+ (NEGATIVE) 07/13/20 18:45 Urine Nitrite Negative (NEGATIVE) 07/13/20 18:45 Urine Bilirubin Negative (NEGATIVE) 07/13/20 18:45 Urine Urobilinogen 2+ (NORMAL) 07/13/20 18:45 Ur Leukocyte Esterase Negative (NEGATIVE) 07/13/20 18:45 Urine RBC 5-10 /HPF (0-3) A 07/13/20 18:45 Urine WBC None seen /HPF (0-5) 07/13/20 18:45 Ur Squamous Epith Cells Rare /HPF (NEGATIVE) 07/13/20 18:45 Urine Bacteria Negative /HPF (NEGATIVE) 07/13/20 18:45 Ur Culture Indicated? No/not indicated 07/13/20 18:45 SARS CoV-2 RNA Rapid ANNETTE Negative (NEGATIVE) 07/16/20 10:11 Blood Type A POSITIVE 07/12/20 12:16 Antibody Screen Negative 07/12/20 12:16 Crossmatch See Detail 07/12/20 12:16 - Plan (1) Pneumonia due to COVID-19 virus Status: Acute Plan: PROCAL AT 40 ML/HR, ALBUMIN 25% IV DAILY, DIFLUCAN 200MG IV DAILY, LEVAQUIN 750MG IV DAILY, ZOSYN 4.5G IV TID, HEPARIN IV PER PROTOCOL, DUONEBS TID, PULMICORT NEBS BID, MUCOMYST IN NEB [place], MORPHINE 1MG/HR IV, TUSSIONEX 5ML PO Q12H PRN, SOLU-MEDROL 125MG IV Q8H, PEPCID 20MG IV BID, PROTONIX 40MG IV DAILY, ASCORBIC ACID 1500MG IV Q6H, HUMULIN R SLIDING SCALE, VERSED DRIP, AND DIPROVAN DRIP FOR SEDATION. (2) Hypoxia Status: Acute (3) HTN (hypertension) Status: Chronic Qualifiers: Hypertension type: essential hypertension Qualified Code(s): I10 - Essential (primary) hypertension (4) Hyperlipidemia Status: Chronic Qualifiers: Hyperlipidemia type: mixed hyperlipidemia Qualified Code(s): E78.2 - Mixed hyperlipidemia (5) Diabetes mellitus Status: Chronic Qualifiers: Diabetes mellitus type: type 2 Diabetes mellitus complication status: without complication
[2020-07-20] MEDS: IVERMECTIN PO SCH (13:15)
[2020-07-20] MEDS: FORTAZ or TAZICEF VIAL INJ 1 G in NS 100 ML IV + SPIKE MINIBAG* 100 ML IV SCH ×2 (14:39→21:50)
[2020-07-20] MEDS: DIPRIVAN PREMIX 500 MG IV 500 MG/50 ML VIAL IV PRN ×2 (16:00→21:30)
[2020-07-20] MEDS ORDERED: NORCURON INJ 10 MG VIAL 50 MG in NS 50 ML IV 50 ML IV PRN (19:22)
[2020-07-20] MEDS ORDERED: NORCURON INJ 10 MG VIAL ONE (20:01)
[2020-07-20] MEDS: PROCALAMINE 3 % 1,000 ML IV SCH (20:33)
[2020-07-20] MEDS ORDERED: OFIRMEV IV 1000 MG VIAL 1,000 MG/100 ML VIAL IV PRN (20:53)
[2020-07-21] MEDS: DIPRIVAN PREMIX 500 MG IV 500 MG/50 ML VIAL IV PRN ×2 (01:30→08:08)
[2020-07-21] MEDS: ASCORBIC ACID INJ MULTI-DOSE VIAL 1,500 MG in NS 50 ML IV 50 ML IV SCH ×3 (03:30→09:25)
[2020-07-21] MEDS: NS 500 ML IV 500 ML IV SCH (03:30)
[2020-07-21 04:49] LABS: ABG PCO2 > 115.0 mmHg (35.0-45.0)
[2020-07-21] MEDS ORDERED: FORTAZ or TAZICEF VIAL INJ ONE (05:18)
[2020-07-21] MEDS ORDERED: NS 100 ML IV + SPIKE MINIBAG* 100 ML IV ONE (05:18)
[2020-07-21] MEDS: DUONEB 0.5 MG/3 MG (3 mL) NEB SCH (05:23)
[2020-07-21] MEDS: SOLU-Medrol 125 MG VIAL IVP SCH (05:24)
[2020-07-21] MEDS: FORTAZ or TAZICEF VIAL INJ 1 G in NS 100 ML IV + SPIKE MINIBAG* 100 ML IV SCH (05:39)
[2020-07-21 05:43] LABS: HEMOGLOBIN 9.5 g/dL (13.5-18.0); LYMPHOCYTES # (AUTO) 0.3 X10^3/uL (1.3-2.9); MEAN CORPUSCULAR HGB CONC 31.5 g/dL (33.0-35.0); MONOCYTES # (AUTO) 2.3 x10^3/uL (0.3-0.8); RED BLOOD COUNT 3.09 X10^6/uL (4.7-6.0)
[2020-07-21 05:55] LABS: BASOPHILS # (AUTO) 0.1 X10^3/uL (0.0-0.1); BASOPHILS % (AUTO) 0.3 % (0.2-1.0); HEMATOCRIT 30.1 % (42.0-54.0); LYMPHOCYTES % (AUTO) 0.8 % (21.0-51.0); MEAN CORPUSCULAR HEMOGLOBIN 30.7 pg (27.0-34.0); MEAN CORPUSCULAR VOLUME 97.6 fL (80.0-100.0); MEAN PLATELET VOLUME 10.7 fL (7.4-11.0); MONOCYTES % (AUTO) 5.9 % (0.0-13.0); NEUTROPHILS # (AUTO) 36.1 x10^3/uL (2.2-4.8); PLATELET COUNT 168 X10^3/uL (150.0-450.0); RED CELL DISTRIBUTION WIDTH 13.5 % (11.6-16.5)
[2020-07-21 06:06] LABS: WHITE BLOOD COUNT 38.9 X10^3/uL (3.6-10.0)
[2020-07-21 06:09] LABS: ALANINE AMINOTRANSFERASE 12 Units/L (12-78); ALBUMIN 3.3 g/dL (3.4-5.0); ALKALINE PHOSPHATASE 62 Units/L (46-116); ASPARTATE AMINO TRANSFERASE 18 Units/L (15-37); BLOOD UREA NITROGEN 33 mg/dL (7-18); CALCIUM 8.8 mg/dL (8.5-10.1); CHLORIDE 108 mmol/L (98-107); COR CA(FOR HYPOALB) 9.4 mg/dL (8.5-10.1); COR NA(FOR HYPERGLY) 154 mmol/L (136-145); CREATININE 0.74 mg/dL (0.70-1.30); SODIUM 149 mmol/L (136-145); TOTAL PROTEIN 6.8 g/dL (6.4-8.2); eGFR NON BLACK RACES > 60 (>60)
--- NOTE | 2020-07-21 06:10 | RAD ---
HISTORYSOB, covidSTUDYPortable AP [id number] extrapulmonary air is again noted in the subcutaneous tiss ues and mediastinum. Suggestion of small left apical pneumothorax although this is equivocal. Bilater al airspace disease is present, unchanged in the right lung and increasing in the left lower lobe. ET tube remains in the mid trachea. No change in position of right IJ line.IMPRESSIONPersistent extrapu lmonary air as described, consistent with barotrauma. Suspect small left apical pneumothorax. Increas ing pneumonia/edema left lower lobe; no change in appearance of lungs otherwise.Electronically signed by: LISA SIDDIQI (Jul 21, 2020 06:08:15)
[2020-07-21 06:12] LABS: CARBON DIOXIDE 40.1 mmol/L (21-32)
[2020-07-21 06:25] VITALS: BP 145/66
[2020-07-21] MEDS: HumuLIN R SUBCUT PRN (06:26)
[2020-07-21 06:45] LABS: BAND NEUTROPHILS % 1 % (0-10); METAMYELOCYTES % 2; PLATELET MORPHOLOGY COMMENT NORMAL (NORMAL)
[2020-07-21] MEDS: VERSED 100 MG in NS 100 ML IV 80 ML IV PRN (08:09)
[2020-07-21] MEDS: ALBUMIN HUMAN 25%- 100 ML 100 ML IV SCH (08:27)
[2020-07-21] MEDS: DIFLUCAN 200 MG IV PREMIX* 200 MG/100 ML BAG IV SCH ×2 (08:28→09:27)
[2020-07-21] MEDS: LACRI-LUBE S.O.P. AFFEYE SCH (08:28)
[2020-07-21] MEDS: PEPCID 20 MG IV PREMIX IV SCH ×2 (08:28→09:26)
[2020-07-21] MEDS: LEVAQUIN PREMIX IV 750 MG 750 MG/150 ML BAG IV SCH ×2 (08:28→09:24)
[2020-07-21] MEDS: PROTONIX INJ 40 MG VIAL IVP SCH (08:29)
[2020-07-21] MEDS: THIAMINE HCL INJ IVP SCH (08:29)
[2020-07-21] MEDS: RHINOCORT ALLERGY NASAL SPRAY ENOSTRIL SCH (08:29)
[2020-07-21] MEDS ORDERED: NS 500 ML IV 500 ML IV ONE (08:36)
[2020-07-21] MEDS: PULMICORT NEB TX 0.5 MG NEB SCH (10:02)
--- NOTE | 2020-07-21 11:23 | PCM.PROG ---
Progress Note Progress Note for Day of Date of Exam: 07/21/20 Subjective Subjective: PT IS A 65 YEAR OLD MALE ADMITTED AND BEING TREATED FOR PNEUMONIA DUE TO COVID-19 AND HYPOXIA. PT IS IN CRITICAL CONDITION, ON A MECHANICAL VENTILATOR, AND HAS CONTINUED TO HAVE SIGNIFICANT WORSENING OF VITALS AND OVERALL DETERIORATION OF HIS RESPIRATORY STATUS. HIS SETTINGS ON THE VENT THIS MORNING ARE: A/C, VENT RATE 25, TIDAL VOLUME 400, PEAK FLOW 37, PEEP 15, FI02 100. HIS OXYGEN SATURATIONS HAVE BEEN 88-92%. ON EXAMINATION, HEART IS TACHYCARDIC. BILATERAL LUNGS ARE NOTED WITH SCATTERED RALES THROUGHOUT. ABDOMEN IS ROUND, SOFT, AND NON-TENDER WITH NORMAL BOWEL SOUNDS NOTED IN ALL QUADRANTS. HIS VITALS THIS MORNING ARE: [id number]%-145/66. LABS/IMAGING: WBC 38, HGB 9.5, PLT COUNT 168, SODIUM 149, CHLORIDE 108, CARBON DIOXIDE 40, BUN 33, CREATININE 0.74, GLUCOSE 321, CRP 14, ALBUMIN 3.1. AN ABG TODAY REVEALED: PH 7.17, PC02 >115, P02 62, HC03 NOT REPORTABLE, 02 SAT NOT REPORTABLE, FI02 100. SPUTUM CULTURES REVEALS GROWTH OF ABUNDANT YEAST. A CHEST XRAY THIS MORNING REVEALED: Persistent extrapulmonary air as described, consistent with barotrauma. Suspect small left apical pneumothorax. Increasing pneumonia/edema left lower lobe; no change in appearance of lungs otherwise. HOSPITAL/TREATMENT COURSE INCLUDES: PROCAL AT 40 ML/HR, ALBUMIN 25% IV DAILY, DIFLUCAN 200MG IV D AILY, LEVAQUIN 750MG IV DAILY, ZOSYN 4.5G IV TID, HEPARIN IV PER PROTOCOL, DUONEBS TID, PULMICORT NEBS BID, MUCOMYST IN NEB [place], MORPHINE 1MG/HR IV, TUSSIONEX 5ML PO Q12H PRN, SOLU-MEDROL 125MG IV Q8H, PEPCID 20MG IV BID, PROTONIX 40MG IV DAILY, ASCORBIC ACID 1500MG IV Q6H, HUMULIN R SLIDING SCALE, V ERSED DRIP, AND DIPROVAN DRIP FOR SEDATION. WE WILL CONTINUE WITH CURRENT PLAN OF CARE TODAY. OTHERWISE, WE WILL FOLLOW UP WITH AM LABS AND CONTINUE TO MONITOR. PCP WILL BE DISCUSSING WITH DAUGHTER GOALS OF CARE INCLUDING PROVIDING MORE COMFORT MEASURES FOR PATIENT DUE TO PATIENT'S POOR PROGNOSIS. CRITICAL CARE TIME SPENT ON CLINICAL ASSESSMENT, REVIEWING LABS AND IMAGING, DECISION MAKING, AND DOCUMENTATION GREATER THAN 75 MINUTES. Past Medical Family Social History Past Med/Fam/Surg Hx: No changes since H&P Allergies: Allergies No Known Drug Allergies Allergy (Verified 07/02/20 17:24) Review of Systems ROS: No change since H&P Vital Signs and I&O's Vital Signs: Temperature 100 F Pulse Rate [Left Brachial] 87 Pulse Rate 133 Respiratory Rate 25 Blood Pressure [Left Arm] 133/74 Blood Pressure 145/66 O2 Sat by Pulse Oximetry 93 Intake and Output: Intake & Output 07/18/20 07/19/20 07/20/20 07/21/20 23:59 23:59 23:59 23:59 Intake Total 4254 / 4354 4782 / 4782 4646 / 4646 1081.2 / 1081.2 Output Total 2250 / 2250 2450 / 2450 3325 / 3325 600 / 600 Balance 2003 / 2103 2332 / 2332 1321 / 1321 481.2 / 481.2 Physical Exam Oriented: Normal Eyes: Normal Ear: Normal Nose: Normal Throat: Normal Respiratory: Generalized, Diminished and Rales Cardiovascular: Normal : Normal Auscultation: Bowel Sounds: Normal Tenderness: Normal Skin: Normal Musculoskeletal: Normal Psychiatric: Normal Mood Description: Calm Affect: Normal Speech Pattern: Artificially Ventilated Laboratory and Diagnostics Result Diagrams: 07/21/20 04:45 07/21/20 04:45 Labs: 07/16/20 01:33 Sputum - Expectorated Sputum Sputum Culture - Final 07/16/20 01:33 Sputum - Expectorated Sputum - Final 07/02/20 22:22 Blood Blood Culture - Final 07/02/20 20:38 Blood Blood Culture - Final Laboratory WBC 38.9 X10^3/uL (3.6-10.0) H* D 07/21/20 04:45 RBC 3.09 X10^6/uL (4.7-6.0) L 07/21/20 04:45 Hgb 9.5 g/dL (13.5-18.0) L 07/21/20 04:45 Hct 30.1 % (42.0-54.0) L 07/21/20 04:45 MCV 97.6 fL (80.0-100.0) 07/21/20 04:45 MCH 30.7 pg (27.0-34.0) 07/21/20 04:45 MCHC 31.5 g/dL (33.0-35.0) L 07/21/20 04:45 RDW 13.5 % (11.6-16.5) 07/21/20 04:45 Plt Count 168 X10^3/uL (150.0-450.0) 07/21/20 04:45 Plt Count Comment Adequate (ADEQUATE) 07/21/20 04:45 MPV 10.7 fL (7.4-11.0) 07/21/20 04:45 Neut % (Auto) 93.0 % (42.0-75.0) H 07/21/20 04:45 Lymph % (Auto) 0.8 % (21.0-51.0) L 07/21/20 04:45 [place] % (Auto) 5.9 % (0.0-13.0) 07/21/20 04:45 Eos % (Auto) 0.0 % (0.9-2.9) L 07/21/20 04:45 Baso % (Auto) 0.3 % (0.2-1.0) 07/21/20 04:45 Neut # (Auto) 36.1 x10^3/uL (2.2-4.8) H 07/21/20 04:45 Lymph # (Auto) 0.3 X10^3/uL (1.3-2.9) L 07/21/20 04:45 [place] # (Auto) 2.3 x10^3/uL (0.3-0.8) H 07/21/20 04:45 Eos # (Auto) 0.0 x10^3/uL (0.0-0.2) 07/21/20 04:45 Baso # (Auto) 0.1 X10^3/uL (0.0-0.1) 07/21/20 04:45 Absolute Nucleated RBC 0.4 /100WBC 07/21/20 04:45 Total Counted 100 07/21/20 04:45 Neutrophils % (Manual) 95 % (39-76) H 07/21/20 04:45 Band Neutrophils % 1 % (0-10) 07/21/20 04:45 Lymphocytes % (Manual) 2 % (13-43) L 07/21/20 04:45 Monocytes % (Manual) 4 % (4-9) 07/20/20 05:11 Basophils % (Manual) 1 % (0-1) 07/12/20 05:25 Metamyelocytes % 2 07/21/20 04:45 Plt Morphology Comment Normal (NORMAL) 07/21/20 04:45 RBC Morphology Normal (NORMAL) 07/21/20 04:45 PT 19.4 SECONDS (11.8-14.3) 07/16/20 04:50 INR Target Range - 07/16/20 04:50 INR 1.69 (0.8-1.3) H 07/16/20 04:50 APTT 105.3 SECONDS (22.9-36.5) H 07/21/20 04:45 PTT Comment - 07/21/20 04:45 D-Dimer 2.69 ug/ml (0.0-0.57) H* 07/21/20 04:45 Sample Site [place] 07/21/20 04:43 ABG pH 7.170 (7.35-7.45) L* 07/21/20 04:43 ABG pCO2 > 115.0 mmHg (35.0-45.0) H* 07/21/20 04:43 ABG pO2 62.0 mmHg (80.0-100.0) L 07/21/20 04:43 ABG HCO3 Not Reportable 07/21/20 04:43 ABG O2 Saturation Not Reportable 07/21/20 04:43 ABG Base Excess Not Reportable 07/21/20 04:43 Cipriano Test N/a 07/21/20 04:43 A-a Gradient Not Reportable 07/21/20 04:43 FiO2 100.0 07/21/20 04:43 Blood Gas Comments Ez well ae 07/21/20 04:43 Sodium 149 mmol/L (136-145) H 07/21/20 04:45 Corrected Sodium 154 mmol/L (136-145) H 07/21/20 04:45 Potassium 4.8 mmol/L (3.5-5.1) 07/21/20 04:45 Chloride 108 mmol/L (98-107) H 07/21/20 04:45 Carbon Dioxide 40.1 mmol/L (21-32) H* 07/21/20 04:45 BUN 33 mg/dL (7-18) H 07/21/20 04:45 Creatinine 0.74 mg/dL (0.70-1.30) 07/21/20 04:45 Est GFR (MDRD) Af Amer > 60 (>60) 07/21/20 04:45 Est GFR (MDRD) Non-Af > 60 (>60) 07/21/20 04:45 Glucose 321 mg/dL (65-99) H 07/21/20 04:45 POC Glucose (mg/dL) 294 mg/dL (65-99) H 07/21/20 05:36 Calcium 8.8 mg/dL (8.5-10.1) 07/21/20 04:45 Corrected Calcium 9.4 mg/dL (8.5-10.1) 07/21/20 04:45 Magnesium 1.7 mg/dL (1.7-2.9) 07/02/20 20:38 Ferritin 308 ng/mL (26-388) 07/13/20 04:39 Total Bilirubin 1.00 mg/dL (0.2-1.0) 07/21/20 04:45 AST 18 Units/L (15-37) 07/21/20 04:45 ALT 12 Units/L (12-78) 07/21/20 04:45 Alkaline Phosphatase 62 Units/L (46-116) 07/21/20 04:45 Creatine Kinase 46 Units/L (39-308) 07/04/20 23:33 CK-MB (CK-2) < 1.0 ng/mL (0-4.0) 07/04/20 23:33 CK/CKMB % Calc 2.2 % (<4) 07/04/20 23:33 Troponin I < 0.02 ng/mL (0-1.5) 07/04/20 23:33 C-Reactive Protein 14.90 mg/L (0-3.0) H 07/21/20 04:45 B-Natriuretic Peptide 162 pg/mL (0-79) H 07/02/20 20:38 Total Protein 6.8 g/dL (6.4-8.2) 07/21/20 04:45 Albumin 3.3 g/dL (3.4-5.0) L 07/21/20 04:45 Globulin 3.5 g/dL (2.5-4.5) 07/21/20 04:45 Albumin/Globulin Ratio 0.9 Ratio (1.1-2.1) L 07/21/20 04:45 Specimen Type Catherized urine 07/13/20 18:45 Urine Color [place] (YELLOW) 07/13/20 18:45 Urine Appearance Clear (CLEAR) 07/13/20 18:45 Urine pH 6.5 (5.0 - 8.0) 07/13/20 18:45 Ur Specific [place] 1.015 (1.000-1.030) 07/13/20 18:45 Urine Protein 1+ (NEGATIVE) 07/13/20 18:45 Urine Glucose (UA) Negative (NEGATIVE) 07/13/20 18:45 Urine Ketones Negative (NEGATIVE) 07/13/20 18:45 Urine Occult Blood 3+ (NEGATIVE) 07/13/20 18:45 Urine Nitrite Negative (NEGATIVE) 07/13/20 18:45 Urine Bilirubin Negative (NEGATIVE) 07/13/20 18:45 Urine Urobilinogen 2+ (NORMAL) 07/13/20 18:45 Ur Leukocyte Esterase Negative (NEGATIVE) 07/13/20 18:45 Urine RBC 5-10 /HPF (0-3) A 07/13/20 18:45 Urine WBC None seen /HPF (0-5) 07/13/20 18:45 Ur Squamous Epith Cells Rare /HPF (NEGATIVE) 07/13/20 18:45 Urine Bacteria Negative /HPF (NEGATIVE) 07/13/20 18:45 Ur Culture Indicated? No/not indicated 07/13/20 18:45 SARS CoV-2 RNA Rapid ANNETTE Negative (NEGATIVE) 07/16/20 10:11 Blood Type A POSITIVE 07/12/20 12:16 Antibody Screen Negative 07/12/20 12:16 Crossmatch See Detail 07/12/20 12:16 Plan (1) Pneumonia due to COVID-19 virus: Status: Acute Plan: PROCAL AT 40 ML/HR, ALBUMIN 25% IV DAILY, DIFLUCAN 200MG IV DAILY, LEVAQUIN 750MG IV DAILY, ZOSYN 4.5G IV TID, HEPARIN IV PER PROTOCOL, DUONEBS TID, PULMICORT NEBS BID, MUCOMYST IN NEB [place], MORPHINE 1MG/HR IV, TUSSIONEX 5ML PO Q12H PRN, SOLU-MEDROL 125MG IV Q8H, PEPCID 20MG IV BID, PROTONIX 40MG IV DAILY, ASCORBIC ACID 1500MG IV Q6H, HUMULIN R SLIDING SCALE, VERSED DRIP, AND DIPROVAN DRIP FOR SEDATION. (2) Hypoxia: Status: Acute (3) HTN (hypertension): Status: Chronic Qualifiers: Hypertension type: essential hypertension Qualified Code(s): I10 - Essential (primary) hypertension (4) Hyperlipidemia: Status: Chronic Qualifiers: Hyperlipidemia type: mixed hyperlipidemia Qualified Code(s): E78.2 - Mixed hyperlipidemia (5) Diabetes mellitus: Status: Chronic Qualifiers: Diabetes mellitus complication status: without complication Diabetes mellitus type: type 2
--- NOTE | 2020-07-21 13:39 | W.DIS.FURT ---
Summary of Discharge Discharge Summary of Date Date of Exam: 07/21/20 Admission Date Date of Admission: 07/03/20 Admission Diagnosis Patient Problems (Updated 07/05/20 @ 10:20 by Negrito Brice) Community acquired pneumonia (Acute) J18.9 Hypoxia (Acute) R09.02 COVID-19 (Acute) U07.1 Pneumonia due to COVID-19 virus (Acute) U07.1, J12.89 HTN (hypertension) (Chronic) I10 Hyperlipidemia (Chronic) E78.5 Diabetes mellitus (Chronic) E11.9 Hospital Course: PT IS A 65 YEAR OLD MALE ADMITTED AND BEING TREATED FOR PNEUMONIA DUE TO COVID- 19 AND HYPOXIA. HIS HOSPITAL/TREATMENT COURSE INCLUDED: PROCAL AT 40 ML/HR, ALBUMIN 25% IV DAILY, DIFLUCAN 200MG IV DAILY, LEVAQUIN 750MG IV DAILY, ZOSYN 4.5G IV TID, HEPARIN IV PER PROTOCOL, DUONEBS TID, PULMICORT NEBS BID, MUCOMYST IN NEB [place], MORPHINE 1MG/HR IV, TUSSIONEX 5ML PO Q12H PRN, SOLU-MEDROL 125MG IV Q8H, PEPCID 20MG IV BID, PROTONIX 40MG IV DAILY, ASCORBIC ACID 1500MG IV Q6H, HUMULIN R SLIDING SCALE, VERSED DRIP, AND DIPROVAN DRIP FOR SEDATION. DURING HOSPITAL COURSE PATIENT DEVELOPED ACUTE RESPIRATORY FAILURE AND HAD TO BE PLACED ON A MECHANICAL VENTILATOR. HE SOON RAPIDLY DECLINED AND CONTINUED TO HAVE SIGNIFICANT WORSENING OF VITALS AND OVERALL DETERIORATION OF HIS RESPIRATORY STATUS. PCP DISCUSSED WITH DAUGHTER GOALS OF CARE INCLUDING PROVIDING MORE COMFORT MEASURES FOR PATIENT DUE TO PATIENT'S POOR PROGNOSIS, WHICH DAUGHTER AGREED PER PATIENT'S WISHES. PT DUE TO CARDIOPULMONARY ARREST ON 07/21/2020. Vital Signs: Vital Signs (72 hours) 07/18/20 14:00 07/18/20 14:04 07/18/20 15:00 Temperature Pulse Rate 79 80 76 Respiratory Rate 31 H 31 H 30 H Blood Pressure 145/68 151/71 O2 Sat by Pulse Oximetry 92 L 93 L 93 L 07/18/20 15:39 07/18/20 16:00 07/18/20 16:13 Temperature 99.6 F Pulse Rate 74 76 79 Respiratory Rate 30 H 30 H 31 H Blood Pressure 162/74 O2 Sat by Pulse Oximetry 93 L 96 97 07/18/20 17:00 07/18/20 17:54 07/18/20 18:00 Temperature Pulse Rate 78 96 H 97 H Respiratory Rate 31 H 31 H 30 H Blood Pressure 169/77 172/74 O2 Sat by Pulse Oximetry 89 L 92 L 91 L 07/18/20 18:51 07/18/20 19:00 07/18/20 20:00 Temperature 99.9 F H Pulse Rate 93 H 94 H 92 H Respiratory Rate 31 H 32 H 32 H Blood Pressure 166/71 149/64 O2 Sat by Pulse Oximetry 92 L 92 L 93 L 07/18/20 21:00 07/18/20 21:17 07/18/20 22:00 Temperature Pulse Rate 90 88 84 Respiratory Rate 30 H 30 H Blood Pressure 155/66 149/66 O2 Sat by Pulse Oximetry 92 L 92 L 92 L 07/18/20 23:00 07/19/20 00:00 07/19/20 01:00 Temperature 99.0 F Pulse Rate 79 76 76 Respiratory Rate 29 H 30 H 31 H Blood Pressure 142/63 158/72 154/70 O2 Sat by Pulse Oximetry 92 L 90 L 91 L 07/19/20 02:00 07/19/20 03:00 07/19/20 04:00 Temperature 99.7 F H Pulse Rate 74 78 78 Respiratory Rate 30 H 31 H 50 H Blood Pressure 149/66 149/69 148/64 O2 Sat by Pulse Oximetry 92 L 92 L 92 L 07/19/20 05:00 07/19/20 06:00 07/19/20 07:00 Temperature Pulse Rate 74 74 76 Respiratory Rate 41 H 29 H 35 H Blood Pressure 135/63 147/70 165/74 O2 Sat by Pulse Oximetry 87 L 88 L 87 L 07/19/20 08:58 07/19/20 09:00 07/19/20 09:26 Temperature Pulse Rate 75 79 80 Respiratory Rate 27 H 32 H 26 H Blood Pressure 182/77 O2 Sat by Pulse Oximetry 91 L 85 L 90 L 07/19/20 10:00 07/19/20 10:41 07/19/20 11:00 Temperature Pulse Rate 74 79 76 Respiratory Rate 45 H 39 H 39 H Blood Pressure 171/77 165/77 O2 Sat by Pulse Oximetry 90 L 92 L 07/19/20 12:00 07/19/20 13:00 07/19/20 13:02 Temperature 99.2 F Pulse Rate 76 77 74 Respiratory Rate 37 H 37 H 38 H Blood Pressure 162/74 155/72 O2 Sat by Pulse Oximetry 92 L 91 L 91 L 07/19/20 14:00 07/19/20 14:05 07/19/20 15:00 Temperature Pulse Rate 90 97 H 87 Respiratory Rate 42 H 36 H Blood Pressure 177/83 169/77 O2 Sat by Pulse Oximetry 88 L 07/19/20 15:28 07/19/20 16:00 07/19/20 16:35 Temperature 99.9 F H Pulse Rate 83 83 81 Respiratory Rate 37 H 40 H 39 H Blood Pressure 150/70 O2 Sat by Pulse Oximetry 92 L 91 L 91 L 07/19/20 17:00 07/19/20 17:58 07/19/20 18:00 Temperature Pulse Rate 77 79 76 Respiratory Rate 37 H 38 H 41 H Blood Pressure 143/67 148/70 O2 Sat by Pulse Oximetry 90 L 91 L 91 L 07/19/20 18:18 07/19/20 19:00 07/19/20 20:00 Temperature 98.7 F Pulse Rate 80 77 86 Respiratory Rate 38 H 39 H 38 H Blood Pressure 151/67 153/70 O2 Sat by Pulse Oximetry 91 L 90 L 86 L 07/19/20 21:00 07/19/20 22:00 07/19/20 22:20 Temperature Pulse Rate 91 H 110 H 111 H Respiratory Rate 37 H 40 H Blood Pressure 157/74 155/73 O2 Sat by Pulse Oximetry 90 L 89 L 89 L 07/19/20 23:00 07/20/20 00:00 07/20/20 01:00 Temperature 98.0 F Pulse Rate 102 H 102 H 101 H Respiratory Rate 38 H 39 H 43 H Blood Pressure 157/74 157/73 156/74 O2 Sat by Pulse Oximetry 89 L 89 L 87 L 07/20/20 02:00 07/20/20 03:00 07/20/20 04:00 Temperature 98.9 F Pulse Rate 104 H 103 H 102 H Respiratory Rate 40 H 41 H 42 H Blood Pressure 160/74 159/74 156/72 O2 Sat by Pulse Oximetry 90 L 90 L 89 L 07/20/20 05:00 07/20/20 06:00 07/20/20 06:38 Temperature Pulse Rate 103 H 104 H 103 H Respiratory Rate 41 H 43 H Blood Pressure 160/77 154/71 O2 Sat by Pulse Oximetry 89 L 92 L 91 L 07/20/20 07:00 07/20/20 08:00 07/20/20 09:00 Temperature 99.3 F Pulse Rate 100 H 96 H 92 H Respiratory Rate 50 H 40 H 48 H Blood Pressure 137/65 136/64 143/68 O2 Sat by Pulse Oximetry 89 L 89 L 89 L 07/20/20 09:54 07/20/20 09:59 07/20/20 10:00 Temperature Pulse Rate 94 H 94 H 92 H Respiratory Rate 41 H 41 H 41 H Blood Pressure 143/66 O2 Sat by Pulse Oximetry 89 L 89 L 88 L 07/20/20 11:00 07/20/20 12:00 07/20/20 13:00 Temperature 100.2 F H Pulse Rate 97 H 100 H 92 H Respiratory Rate 52 H 49 H 49 H Blood Pressure 155/76 160/75 161/77 O2 Sat by Pulse Oximetry 89 L 90 L 90 L 07/20/20 13:17 07/20/20 13:41 07/20/20 13:47 Temperature Pulse Rate 99 H Respiratory Rate 17 49 H 18 Blood Pressure O2 Sat by Pulse Oximetry 89 L 07/20/20 14:00 07/20/20 15:00 07/20/20 15:36 Temperature Pulse Rate 99 H 99 H 102 H Respiratory Rate 49 H 49 H 49 H Blood Pressure 155/74 162/74 O2 Sat by Pulse Oximetry 89 L 88 L 88 L 07/20/20 16:00 07/20/20 16:45 07/20/20 17:00 Temperature 101.5 F H 99.9 F H Pulse Rate 101 H 104 H 105 H Respiratory Rate 48 H 49 H 46 H Blood Pressure 159/74 150/74 O2 Sat by Pulse Oximetry 89 L 89 L 89 L 07/20/20 17:28 07/20/20 18:00 07/20/20 18:11 Temperature Pulse Rate 96 H 90 97 H Respiratory Rate 46 H 47 H 47 H Blood Pressure 166/77 O2 Sat by Pulse Oximetry 90 L 89 L 88 L 07/20/20 19:00 07/20/20 20:00 07/20/20 20:30 Temperature 101.5 F H Pulse Rate 94 H 98 H 97 H Respiratory Rate 30 H 29 H Blood Pressure 167/77 145/68 O2 Sat by Pulse Oximetry 87 L 88 L 90 L 07/20/20 21:00 07/20/20 22:00 07/20/20 23:00 Temperature Pulse Rate 99 H 100 H 97 H Respiratory Rate 32 H 28 H 30 H Blood Pressure 152/72 163/78 164/76 O2 Sat by Pulse Oximetry 89 L 85 L 88 L 07/21/20 00:00 07/21/20 01:00 07/21/20 02:00 Temperature 100.2 F H Pulse Rate 101 H 127 H 133 H Respiratory Rate 32 H 40 H 25 H Blood Pressure 156/73 157/72 154/71 O2 Sat by Pulse Oximetry 87 L 83 L 91 L 07/21/20 03:00 07/21/20 04:00 07/21/20 05:00 Temperature 100 F H Pulse Rate 134 H 136 H 134 H Respiratory Rate 25 H 25 H 25 H Blood Pressure 147/68 147/68 144/65 O2 Sat by Pulse Oximetry 92 L 91 L 93 L 07/21/20 06:00 Temperature Pulse Rate 133 H Respiratory Rate 25 H Blood Pressure 145/66 O2 Sat by Pulse Oximetry 93 L Labs: Laboratory Last Values WBC 38.9 X10^3/uL (3.6-10.0) H* D 07/21/20 04:45 RBC 3.09 X10^6/uL (4.7-6.0) L 07/21/20 04:45 Hgb 9.5 g/dL (13.5-18.0) L 07/21/20 04:45 Hct 30.1 % (42.0-54.0) L 07/21/20 04:45 MCV 97.6 fL (80.0-100.0) 07/21/20 04:45 MCH 30.7 pg (27.0-34.0) 07/21/20 04:45 MCHC 31.5 g/dL (33.0-35.0) L 07/21/20 04:45 RDW 13.5 % (11.6-16.5) 07/21/20 04:45 Plt Count 168 X10^3/uL (150.0-450.0) 07/21/20 04:45 Plt Count Comment Adequate (ADEQUATE) 07/21/20 04:45 MPV 10.7 fL (7.4-11.0) 07/21/20 04:45 Neut % (Auto) 93.0 % (42.0-75.0) H 07/21/20 04:45 Lymph % (Auto) 0.8 % (21.0-51.0) L 07/21/20 04:45 [place] % (Auto) 5.9 % (0.0-13.0) 07/21/20 04:45 Eos % (Auto) 0.0 % (0.9-2.9) L 07/21/20 04:45 Baso % (Auto) 0.3 % (0.2-1.0) 07/21/20 04:45 Neut # (Auto) 36.1 x10^3/uL (2.2-4.8) H 07/21/20 04:45 Lymph # (Auto) 0.3 X10^3/uL (1.3-2.9) L 07/21/20 04:45 [place] # (Auto) 2.3 x10^3/uL (0.3-0.8) H 07/21/20 04:45 Eos # (Auto) 0.0 x10^3/uL (0.0-0.2) 07/21/20 04:45 Baso # (Auto) 0.1 X10^3/uL (0.0-0.1) 07/21/20 04:45 Absolute Nucleated RBC 0.4 /100WBC 07/21/20 04:45 Total Counted 100 07/21/20 04:45 Neutrophils % (Manual) 95 % (39-76) H 07/21/20 04:45 Band Neutrophils % 1 % (0-10) 07/21/20 04:45 Lymphocytes % (Manual) 2 % (13-43) L 07/21/20 04:45 Monocytes % (Manual) 4 % (4-9) 07/20/20 05:11 Basophils % (Manual) 1 % (0-1) 07/12/20 05:25 Metamyelocytes % 2 07/21/20 04:45 Plt Morphology Comment Normal (NORMAL) 07/21/20 04:45 RBC Morphology Normal (NORMAL) 07/21/20 04:45 PT 19.4 SECONDS (11.8-14.3) 07/16/20 04:50 INR Target Range - 07/16/20 04:50 INR 1.69 (0.8-1.3) H 07/16/20 04:50 APTT 105.3 SECONDS (22.9-36.5) H 07/21/20 04:45 PTT Comment - 07/21/20 04:45 D-Dimer 2.69 ug/ml (0.0-0.57) H* 07/21/20 04:45 Sample Site [place] 07/21/20 04:43 ABG pH 7.170 (7.35-7.45) L* 07/21/20 04:43 ABG pCO2 > 115.0 mmHg (35.0-45.0) H* 07/21/20 04:43 ABG pO2 62.0 mmHg (80.0-100.0) L 07/21/20 04:43 ABG HCO3 Not Reportable 07/21/20 04:43 ABG O2 Saturation Not Reportable 07/21/20 04:43 ABG Base Excess Not Reportable 07/21/20 04:43 Cipriano Test N/a 07/21/20 04:43 A-a Gradient Not Reportable 07/21/20 04:43 FiO2 100.0 07/21/20 04:43 Blood Gas Comments Ez well ae 07/21/20 04:43 Sodium 149 mmol/L (136-145) H 07/21/20 04:45 Corrected Sodium 154 mmol/L (136-145) H 07/21/20 04:45 Potassium 4.8 mmol/L (3.5-5.1) 07/21/20 04:45 Chloride 108 mmol/L (98-107) H 07/21/20 04:45 Carbon Dioxide 40.1 mmol/L (21-32) H* 07/21/20 04:45 BUN 33 mg/dL (7-18) H 07/21/20 04:45 Creatinine 0.74 mg/dL (0.70-1.30) 07/21/20 04:45 Est GFR (MDRD) Af Amer > 60 (>60) 07/21/20 04:45 Est GFR (MDRD) Non-Af > 60 (>60) 07/21/20 04:45 Glucose 321 mg/dL (65-99) H 07/21/20 04:45 POC Glucose (mg/dL) 294 mg/dL (65-99) H 07/21/20 05:36 Calcium 8.8 mg/dL (8.5-10.1) 07/21/20 04:45 Corrected Calcium 9.4 mg/dL (8.5-10.1) 07/21/20 04:45 Magnesium 1.7 mg/dL (1.7-2.9) 07/02/20 20:38 Ferritin 308 ng/mL (26-388) 07/13/20 04:39 Total Bilirubin 1.00 mg/dL (0.2-1.0) 07/21/20 04:45 AST 18 Units/L (15-37) 07/21/20 04:45 ALT 12 Units/L (12-78) 07/21/20 04:45 Alkaline Phosphatase 62 Units/L (46-116) 07/21/20 04:45 Creatine Kinase 46 Units/L (39-308) 07/04/20 23:33 CK-MB (CK-2) < 1.0 ng/mL (0-4.0) 07/04/20 23:33 CK/CKMB % Calc 2.2 % (<4) 07/04/20 23:33 Troponin I < 0.02 ng/mL (0-1.5) 07/04/20 23:33 C-Reactive Protein 14.90 mg/L (0-3.0) H 07/21/20 04:45 B-Natriuretic Peptide 162 pg/mL (0-79) H 07/02/20 20:38 Total Protein 6.8 g/dL (6.4-8.2) 07/21/20 04:45 Albumin 3.3 g/dL (3.4-5.0) L 07/21/20 04:45 Globulin 3.5 g/dL (2.5-4.5) 07/21/20 04:45 Albumin/Globulin Ratio 0.9 Ratio (1.1-2.1) L 07/21/20 04:45 Specimen Type Catherized urine 07/13/20 18:45 Urine Color [place] (YELLOW) 07/13/20 18:45 Urine Appearance Clear (CLEAR) 07/13/20 18:45 Urine pH 6.5 (5.0 - 8.0) 07/13/20 18:45 Ur Specific [place] 1.015 (1.000-1.030) 07/13/20 18:45 Urine Protein 1+ (NEGATIVE) 07/13/20 18:45 Urine Glucose (UA) Negative (NEGATIVE) 07/13/20 18:45 Urine Ketones Negative (NEGATIVE) 07/13/20 18:45 Urine Occult Blood 3+ (NEGATIVE) 07/13/20 18:45 Urine Nitrite Negative (NEGATIVE) 07/13/20 18:45 Urine Bilirubin Negative (NEGATIVE) 07/13/20 18:45 Urine Urobilinogen 2+ (NORMAL) 07/13/20 18:45 Ur Leukocyte Esterase Negative (NEGATIVE) 07/13/20 18:45 Urine RBC 5-10 /HPF (0-3) A 07/13/20 18:45 Urine WBC None seen /HPF (0-5) 07/13/20 18:45 Ur Squamous Epith Cells Rare /HPF (NEGATIVE) 07/13/20 18:45 Urine Bacteria Negative /HPF (NEGATIVE) 07/13/20 18:45 Ur Culture Indicated? No/not indicated 07/13/20 18:45 SARS CoV-2 RNA Rapid ANNETTE Negative (NEGATIVE) 07/16/20 10:11 Blood Type A POSITIVE 07/12/20 12:16 Antibody Screen Negative 07/12/20 12:16 Crossmatch See Detail 07/12/20 12:16 Reason For Visit: CAP HYPOXIA AND COVID Discharge Date Discharge Date: 07/21/20 Discharge Diagnosis All Active Problems (Updated 07/05/20 @ 10:20 by Negrito Brice) Community acquired pneumonia (Acute) Hypoxia (Acute) COVID-19 (Acute) Pneumonia due to COVID-19 virus (Acute) HTN (hypertension) (Chronic) Hyperlipidemia (Chronic) Diabetes mellitus (Chronic) Discharge Medications Discharge Medications: No Known Drug Allergies Allergy (Verified 07/02/20 17:24) CONTINUE taking the following medications benazepril 40 mg PO DAILY 07/03/20 [History] carvedilol 6.25 mg PO DAILY 07/03/20 [History] fenofibrate micronized 134 mg PO DAILY 07/03/20 [History] lisdexamfetamine [Vyvanse] 30 mg PO DAILY 07/03/20 [History] simvastatin 40 mg PO DAILY 07/03/20 [History] sitagliptin-metformin [Janumet XR] 1 tab PO DAILY 07/03/20 [History] New Prescriptions buprenorphine-naloxone [Suboxone] 1 film SUBLINGUAL TID 30 Days #90 ea MDD 3 07/03/20 [Rx] Discharge Disposition Discharge Disposition: Discharge Condition: Discharge Plan Discharge Plan Hospital Course: PT IS A 65 YEAR OLD MALE ADMITTED AND BEING TREATED FOR PNEUMONIA DUE TO COVID- 19 AND HYPOXIA. HIS HOSPITAL/TREATMENT COURSE INCLUDED: PROCAL AT 40 ML/HR, ALBUMIN 25% IV DAILY, DIFLUCAN 200MG IV DAILY, LEVAQUIN 750MG IV DAILY, ZOSYN 4.5G IV TID, HEPARIN IV PER PROTOCOL, DUONEBS TID, PULMICORT NEBS BID, MUCOMYST IN NEB [place], MORPHINE 1MG/HR IV, TUSSIONEX 5ML PO Q12H PRN, SOLU-MEDROL 125MG IV Q8H, PEPCID 20MG IV BID, PROTONIX 40MG IV DAILY, ASCORBIC ACID 1500MG IV Q6H, HUMULIN R SLIDING SCALE, VERSED DRIP, AND DIPROVAN DRIP FOR SEDATION. DURING HOSPITAL COURSE PATIENT DEVELOPED ACUTE RESPIRATORY FAILURE AND HAD TO BE PLACED ON A MECHANICAL VENTILATOR. HE SOON RAPIDLY DECLINED AND CONTINUED TO HAVE SIGNIFICANT WORSENING OF VITALS AND OVERALL DETERIORATION OF HIS RESPIRATORY STATUS. PCP DISCUSSED WITH DAUGHTER GOALS OF CARE INCLUDING PROVIDING MORE COMFORT MEASURES FOR PATIENT DUE TO PATIENT'S POOR PROGNOSIS, WHICH DAUGHTER AGREED PER PATIENT'S WISHES. PT DUE TO CARDIOPULMONARY ARREST ON 07/21/2020. Patient Disposition: 20 Health Concerns: Post Hospitalization: new medications and changes needed to prevent readmission or further decline. Pt educated and given instructions on all concerns. Care Plan Goals: Problem: Respiratory Complications Goal: Improved Uncomplicated Respiratory Status Instructions: Follow provided instructions. Follow up with primary physician as directed. Contact primary care physician or report to the closest Emergency Room if condition worsens. Prescriptions: New buprenorphine-naloxone [Suboxone] 2-0.5 mg Film 1 film SUBLINGUAL TID MDD 3 30 Days Qty: 90 RF: 0 No Action carvedilol 6.25 mg tablet 6.25 mg PO DAILY RF: 0 simvastatin 40 mg tablet 40 mg PO DAILY RF: 0 fenofibrate micronized 134 mg capsule 134 mg PO DAILY RF: 0 benazepril 40 mg tablet 40 mg PO DAILY RF: 0 Vyvanse 30 mg capsule 30 mg PO DAILY RF: 0 Janumet XR 50-500 mg tablet, ER multiphase 24 hr 1 tab PO DAILY RF: 0 Follow ups/Referrals Follow ups/Referrals: Negrito Brice [Primary Care Provider] - None
== END 2020-07-21 11:55 | disposition expired | DRG 207 ==
LOC: ER 17:24 → OBS 07-03 07:51 → ICU 07-03 14:30
PROVIDERS: ADMIT Internal Medicine; ATTEND Internal Medicine
DX: U07.1 COVID-19; R91.8 Other nonspecific abnormal finding of lung field; R19.7 Diarrhea, unspecified; E11.9 Type 2 diabetes mellitus without complications; Z94.9 Transplanted organ and tissue status, unspecified; G72.81 Critical illness myopathy; I46.9 Cardiac arrest, cause unspecified; J12.81 Pneumonia due to SARS-associated coronavirus; I87.2 Venous insufficiency (chronic) (peripheral); J43.8 Other emphysema; J96.01 Acute respiratory failure with hypoxia; E78.5 Hyperlipidemia, unspecified; I10 Essential (primary) hypertension; Z78.1 Physical restraint status; R00.1 Bradycardia, unspecified